=== PATIENT | male | born 1960 | race American Indian/Alaskan Native ===

== ENCOUNTER 2020-06-26 11:24 | Emergency (ER) | payer MEDICAID ==
[2020-06-26 11:44] VITALS: BP 127/80
[2020-06-26 13:10] LABS: Basophils # (Auto) 0.1 K/mm3 (0.0-0.1); Basophils % (Auto) 1.2 % (0.0-1.8); Eosinophils % (Auto) 0.5 % (0.0-4.3); Hematocrit 44.9 % (35.5-45.6); Hemoglobin 14.4 gm/dl (11.8-15.2); Lymphocytes # (Auto) 1.5 K/mm3 (1.2-5.4); Lymphocytes % (Auto) 18.1 % (13.4-35.0); Mean Corpuscular HGB Conc 32 % (32-34); Mean Corpuscular Volume 96 fl (84-94); Monocytes # (Auto) 0.7 K/mm3 (0.0-0.8); Monocytes % (Auto) 9.2 % (0.0-7.3); Platelet Count 134 K/mm3 (140-440); Red Cell Distribution Width 17.2 % (13.2-15.2)
--- NOTE | 2020-06-26 13:13 | XRay Report ---
CHEST 2 VIEWS, 06/26/2020 11:53 AM INDICATION: Shortness of breath COMPARISON: Chest radiograph, 06/21/2020 FINDINGS: Support devices: None. Heart: There is stable moderate enlargement of the cardiac silhouette. Lungs/pleura: Faint opacity within the right perihilar region has improved but not completely cleared . There are small stable bilateral pleural effusions. Additional findings: No significant acute abnormality. IMPRESSION: 1. Interval improvement of perihilar opacity which may suggest resolving pneumonia or edema. 2. Stable small bilateral pleural effusions. Signer Name: Hilda Rae MD Signed: 06/26/2020 1:09 PM Workstation Name: [id number]
[2020-06-26 13:26] LABS: Albumin 3.9 g/dL (3.9-5); Calcium 8.6 mg/dL (8.4-10.2)
--- NOTE | 2020-06-26 13:49 | Event Note ---
ED Screening Note Date of service: 06/26/20 Time: 13:47 ED Screening Note: 60-year-old male with a past medical history of hypertension, CHF, and chronic renal disease presents to the ER today complaining of shortness of breath. Patient was just discharged from the hospital yesterday. His discharge diagnoses were: Acute on chronic systolic CHF, now compensated, need further outpatient follow- up Dysphagia, resolved, GI recommended outpatient follow-up Pneumonia, likely aspiration, treated with antibiotics MU on CKD, due to vasomotor nephropathy, improved Hyperkalemia, treated, need to repeat BMP in 1 week Metabolic acidosis, due to renal failure, continue sodium bicarbonate p.o. twice daily Hypertension, adjusted BP meds Patient states that he felt good at the time of discharge yesterday, but when he got home last night started with shortness of breath, states that he could not sleep due to shortness of breath and he still continues to have substernal chest discomfort and a dry cough. This initial assessment/diagnostic orders/clinical plan/treatment(s) is/are subject to change based on patients health status, clinical progression and re- assessment by fellow clinical providers in the ED. Further treatment and workup at subsequent clinical providers discretion. Patient/guardian urged not to elope from the ED as their condition may be serious if not clinically assessed and managed. Initial orders include: Cardiac w/u
== END 2020-06-26 15:50 | disposition left against medical advice (07) ==
LOC: ED 11:24
DX: R06.02 Shortness of breath (principal); Z53.21 Procedure and treatment not carried out due to patient leaving prior to being seen by health care provider
CPT/HCPCS: 36415; 71046; 80053; 83880; 84484; 85025

== ENCOUNTER 2020-06-28 04:57 | Emergency (ER) | payer MEDICAID ==
--- NOTE | 2020-06-28 05:25 | Event Note ---
ED Screening Note Date of service: 06/28/20 Time: 05:22 ED Screening Note: Patient is a 60-year-old -Chinese male with a history of CHF, cardiomyopathy, hypertension, chronic kidney disease who presents to the ED with acute onset persistent shortness of breath with exertion for the last 1 week, worse in the last 2 days. Patient states that he was recently discharged from the hospital after being admitted and extensive work-up and that he was given a prescriptions including water pills and that these medications have not helped his shortness of breath. Patient states that his symptoms are worse especially with exertion and when he lays down and therefore has not been able to sleep because of worsening shortness of breath. Patient denies chest pain, dizziness, syncope, fever, chills, abdominal pain, nausea and vomiting, diarrhea, headache or hemoptysis and cough. This initial assessment/diagnostic orders/clinical plan/treatment(s) is/are subject to change based on patients health status, clinical progression and re- assessment by fellow clinical providers in the ED. Further treatment and workup at subsequent clinical providers discretion. Patient/guardian urged not to elope from the ED as their condition may be serious if not clinically assessed and managed. Initial orders include: CBC, CMP, EKG, troponin, BNP, CXR
--- NOTE | 2020-06-28 06:01 | XRay Report ---
CHEST 1 VIEW 06/28/2020 4:55 AM INDICATION / CLINICAL INFORMATION: Shortness of breath. COMPARISON: 06/27/2020 FINDINGS: SUPPORT DEVICES: None. HEART / MEDIASTINUM: Stable mild cardiomegaly. LUNGS / PLEURA: Stable tiny bilateral pleural effusions. No pneumothorax. ADDITIONAL FINDINGS: No significant additional findings. IMPRESSION: 1. No acute findings. Signer Name: Usman Redd MD Signed: 06/28/2020 5:57 AM Workstation Name: [id number]
[2020-06-28 06:02] LABS: Basophils # (Auto) 0.1 K/mm3 (0.0-0.1); Basophils % (Auto) 0.8 % (0.0-1.8); Eosinophils % (Auto) 0.2 % (0.0-4.3); Hematocrit 40.4 % (35.5-45.6); Hemoglobin 13.2 gm/dl (11.8-15.2); Lymphocytes # (Auto) 1.5 K/mm3 (1.2-5.4); Lymphocytes % (Auto) 17.3 % (13.4-35.0); Mean Corpuscular HGB Conc 33 % (32-34); Mean Corpuscular Volume 94 fl (84-94); Monocytes # (Auto) 1.3 K/mm3 (0.0-0.8); Monocytes % (Auto) 14.9 % (0.0-7.3); Platelet Count 135 K/mm3 (140-440); Red Blood Count 4.28 M/mm3 (3.65-5.03)
[2020-06-28 06:23] LABS: Albumin 3.7 g/dL (3.9-5); Calcium 8.6 mg/dL (8.4-10.2)
[2020-06-28] MEDS ORDERED: MORPHINE 4 MG/1 ML INJ IV ONE (06:57)
[2020-06-28] MEDS ORDERED: ONDANSETRON 4 MG/2 ML INJ IV ONE (06:57)
--- NOTE | 2020-06-28 07:02 | Emergency Department Report ---
ED General Adult HPI - General Chief complaint: Dyspnea/Respdistress Stated complaint: SOB/LEFT ARM SWOLLEN Time Seen by Provider: 06/28/20 06:51 Source: patient Mode of arrival: Ambulatory Limitations: No Limitations - History of Present Illness Initial comments: Patient is 60 years old male with history of hypertension and congestive heart failure. Patient presented to the ER with multiple complaints. Patient stated that his shortness of breath is not getting better. Patient stated that he is taking his Lasix as he supposed to however he denied any orthopnea or increasing in shortness of breath. Patient also complaining of lower abdominal pain, described as crampy and fullness sometimes. Patient stated that his bowel movement is not the same since he took a barium swallow recently. Patient denied any fever or chills. No chest pain, cough, runny nose or congestion. - Related Data Previous Rx's Medication Instructions Recorded Last Taken Type Aspirin [Aspirin BABY CHEW TAB] 81 mg PO QDAY #30 tab.chew 05/01/20 Unknown Rx Pantoprazole Sodium 40 mg PO DAILY #30 tablet. 05/01/20 Unknown Rx Sodium Bicarbonate 650 mg PO BID #30 tablet 05/01/20 Unknown Rx amLODIPine 10 mg PO QDAY #30 tablet 05/01/20 Unknown Rx ISOSORBIDE MONOnitrate [Imdur ER] 30 mg PO QDAY #30 tablet 06/24/20 Unknown Rx Metoprolol [Lopressor TAB] 50 mg PO BID #60 tablet 06/24/20 Unknown Rx hydrALAZINE [Apresoline TAB] 50 mg PO Q8HR #90 tablet 06/24/20 Unknown Rx Albuterol Mdi (or & Nicu Only) 2 puff IH QID PRN #8.5 gram 06/27/20 Unknown Rx [ProAir HFA Inhaler] Omeprazole 20 mg PO QDAY #30 tab.rap. 06/27/20 Unknown Rx Allergies Allergy/AdvReac Type Severity Reaction Status Date / Time No Known Allergies Allergy Unverified 04/28/20 22:14 ED Review of Systems ROS: Stated complaint: SOB/LEFT ARM SWOLLEN Other details as noted in HPI Comment: All other systems reviewed and negative Constitutional: denies: chills, fever Respiratory: shortness of breath, SOB with exertion, SOB at rest. denies: cough, orthopnea, wheezing Cardiovascular: denies: chest pain, palpitations Gastrointestinal: abdominal pain, nausea, constipation. denies: vomiting, diarrhea, hematemesis, melena, hematochezia Musculoskeletal: denies: back pain Neurological: denies: headache, weakness, numbness, paresthesias, confusion, abnormal gait ED Past Medical Hx - Past Medical History Hx Hypertension: Yes Hx Heart Attack/AMI: No Hx Congestive Heart Failure: Yes Hx Diabetes: No Hx Deep Vein Thrombosis: No Hx Pulmonary Embolism: No Hx Liver Disease: No Hx Renal Disease: No Hx Sickle Cell Disease: No Hx Seizures: No Hx Kidney Stones: No Hx Asthma: No Hx COPD: No Hx Tuberculosis: No Hx Dementia: No Hx HIV: No Additional medical history: Pneumonia - Surgical History Hx Coronary Stent: No Hx Pacemaker: No Hx Internal Defibrillator: No - Social History Smoking Status: Unknown if ever smoked Substance Use Type: None - Medications Home Medications: Home Medications Medication Instructions Recorded Confirmed Last Taken Type Aspirin [Aspirin BABY CHEW TAB] 81 mg PO QDAY #30 tab.chew 05/01/20 06/22/20 Unknown Rx Pantoprazole Sodium 40 mg PO DAILY #30 tablet. 05/01/20 06/22/20 Unknown Rx Sodium Bicarbonate 650 mg PO BID #30 tablet 05/01/20 06/22/20 Unknown Rx amLODIPine 10 mg PO QDAY #30 tablet 05/01/20 06/22/20 Unknown Rx ISOSORBIDE MONOnitrate [Imdur ER] 30 mg PO QDAY #30 tablet 06/24/20 Unknown Rx Metoprolol [Lopressor TAB] 50 mg PO BID #60 tablet 06/24/20 Unknown Rx hydrALAZINE [Apresoline TAB] 50 mg PO Q8HR #90 tablet 06/24/20 Unknown Rx Albuterol Mdi (or & Nicu Only) 2 puff IH QID PRN #8.5 gram 06/27/20 Unknown Rx [ProAir HFA Inhaler] Omeprazole 20 mg PO QDAY #30 tab.rap. 06/27/20 Unknown Rx ED Physical Exam - General Limitations: No Limitations General appearance: alert, in no apparent distress - Head Head exam: Present: atraumatic, normocephalic, normal inspection - Eye Eye exam: Present: normal appearance, PERRL - ENT ENT exam: Present: normal exam, normal orophraynx, mucous membranes moist - Neck Neck exam: Present: normal inspection, full ROM. Absent: tenderness, meningismu s - Respiratory Respiratory exam: Present: normal lung sounds bilaterally. Absent: respiratory distress, wheezes, rales, rhonchi, chest wall tenderness, accessory muscle use, decreased breath sounds, prolonged expiratory - Cardiovascular Cardiovascular Exam: Present: regular rate, normal rhythm, normal heart sounds - GI/Abdominal GI/Abdominal exam: Present: soft, normal bowel sounds. Absent: distended, tenderness, guarding, rebound, rigid, organomegaly, mass, bruit, pulsatile mass, hernia - Extremities Exam Extremities exam: Present: normal inspection, full ROM, normal capillary refill. Absent: tenderness, pedal edema, calf tenderness - Back Exam Back exam: Present: normal inspection, full ROM. Absent: CVA tenderness (R), CVA tenderness (L) - Neurological Exam Neurological exam: Present: alert, oriented X3, CN II-XII intact, normal gait, reflexes normal. Absent: motor sensory deficit - Psychiatric Psychiatric exam: Present: normal mood - Skin Skin exam: Present: warm, intact, normal color ED Course Vital Signs 06/28/20 06/28/20 06/28/20 05:10 05:27 07:14 Temperature 98.7 F Pulse Rate 67 73 Respiratory 16 18 Rate Blood Pressure 138/86 115/87 [Left] O2 Sat by Pulse 98 100 Oximetry 06/28/20 07:58 Temperature Pulse Rate 63 Respiratory 18 Rate Blood Pressure 129/84 [Left] O2 Sat by Pulse 93 Oximetry ED Medical Decision Making - Lab Data Result diagrams: 06/28/20 05:28 06/28/20 05:28 - EKG Data -: EKG Interpreted by Ut EKG shows normal: sinus rhythm Rate: normal - EKG Data Interpretation: no acute changes - Radiology Data Radiology results: report reviewed - Medical Decision Making Patient is 60 years old male with history of hypertension and congestive heart failure. Patient presented to the ER with multiple complaints. Patient stated that his shortness of breath is not getting better. Patient stated that he is taking his Lasix as he supposed to however he denied any orthopnea or increasing in shortness of breath. Patient also complaining of lower abdominal pain, described as crampy and fullness sometimes. Patient stated that his bowel movement is not the same since he took a barium swallow recently. Patient denied any fever or chills. No chest pain, cough, runny nose or congestion. Patient remained stable in the ER with a stable vital sign and oxygen saturation of 100%. EKG is unremarkable. Labs reviewed and is unremarkable except for elevated BNP which is stable compared to previous visit. Chest x-ray showed no evidence of pulmonary edema. Patient is not in acute congestive heart failure. Patient symptoms is mainly abdominal cramping and having difficulty having a bowel movement also. Patient given prescription for lactulose and Colace and advised to follow-up with his primary doctor in the next 2 to 3 days and to return to the ER if he develop any new symptoms. Critical care attestation.: If time is entered above; I have spent that time in minutes in the direct care of this critically ill patient, excluding procedure time. ED Disposition Clinical Impression: Shortness of breath, Abdominal pain, Constipation Disposition: - TO HOME OR SELFCARE Is pt being admited?: No Condition: Stable Instructions: Shortness of Breath, Adult, [id number], Chronic Constipation, Abdominal Pain, Adult, [id number] Referrals: PRIMARY CARE, [Primary Care Provider] - 3-5 Days
--- NOTE | 2020-06-28 08:12 | XRay Report ---
ABDOMEN 1 VIEW(S) INDICATION / CLINICAL INFORMATION: abdominal pain. COMPARISON: Yesterday FINDINGS: TUBES / LINES: None. BOWEL GAS PATTERN: No significant abnormality. FREE AIR / EXTRALUMINAL GAS: None seen. ADDITIONAL FINDINGS: No significant additional findings. IMPRESSION: No significant abnormality. Signer Name: Brent Graves Jr, MD Signed: 06/28/2020 8:08 AM Workstation Name: [id number]
[2020-06-28 09:09] VITALS: BP 128/83
[2020-06-28 09:20] LABS: Bilirubin,Urine NEG (Negative); Blood,Urine NEG (Negative); Color,Urine Amber (Yellow); Urobilinogen,Urine < 2.0 mg/dL (<2.0)
== END 2020-06-28 09:09 | disposition home or self-care (01) ==
LOC: ED 04:57
DX: R06.02 Shortness of breath (principal); K59.00 Constipation, unspecified; I10 Essential (primary) hypertension; Z79.82 Long term (current) use of aspirin; Z79.899 Other long term (current) drug therapy
CPT/HCPCS: 36415; 71045; 74018; 80053; 81001; 83690; 83880; 84484; 85025; 93005; 96374; 96375; J2270; J2405

== ENCOUNTER 2020-08-28 08:15 | Inpatient (IN) | payer MEDICAID ==
--- NOTE | 2020-08-28 09:19 | Emergency Department Report ---
ED Chest Pain HPI - General Chief Complaint: Chest Pain Stated Complaint: CHEST PAIN/BLOOD CLOTS/HBP Time Seen by Provider: 08/28/20 09:10 Source: patient Mode of arrival: Ambulatory Limitations: No Limitations - History of Present Illness Initial Comments: This is a 60-year-old man who states he was discharged from [facility] yesterday. Last night he states he could not sleep. He states he lives alone. He complains of bilateral leg pain, back pain and swelling of his stomach. Initially he pointed to his periumbilical area as where he was hurting stating this was the location of his chest pain. Then on examination he said he was tender in the right upper quadrant. Apparently the patient does have chronic back pain. He relates his leg pain to a diagnosis of DVT at [facility]. He recognizes the name of Xarelto as the medication that he is taking for that. He states that he did begin it upon discharge and that he has it in his back. The patient tells me that he does not have a primary care provider, pulmonolog ist or charrer. He has a complex medical history of restrictive cardiomyopathy with admission here in the past for pneumonia as well as CHF. He has a history of chronic renal insufficiency and hyperkalemia. Last hospitalization end of May, here: Hospitalization Reason for admission: chf Condition: Stable Hospital course: This patient is a 60 year old Male with a significant hx of restrictive cardiomyopathy, Heart Failure with reduced Ejection Fraction, Chronic Kidney Disease, HTN, Recurrent PNA presented to PSYCHIATRIC ER with complaint of SOB x 3 days, dysphagia with "bloating and midepigastric pain" with ingestion. He was previously admitted in 03/2020-04/2020 to PSYCHIATRIC for PNA. He is Covid negative x 2. Chest x-ray: Diffuse opacities in the right lung, new since previous examination. Patient was placed on empiric antibiotics, ID was consulted. 2D echo showed EF of 20 to 25%. Cardiology was consulted. Patient went through a barium swallow study which was recommended by GI for his dysphagia and exam was unremarkable. Patient was tolerating GI soft diet. Patient was recommended to follow-up outpatient. DDimer is noted to be chronically elevated - V/Q scan done 04/29/2020 was low prob for PE. GI and cardiology recommended outpatient follow-up. No ACEI/ARB recommended at this time for renal insufficiency and hyperkalemia. Patient was treated optimally for hyperkalemia, and potassium level was followed. His creatinine level was stable. Patient recommended to follow-up with Dr. Garrett in 1 week. Patient also recommended to have a repeat BMP and follow-up with nephrology. ID recommended no antibiotic necessary on discharge as patient's procalcitonin level was normal. Patient also recommended to have follow-up with lvn lpn at outpatient for pulmonary hypertension. Patient was aggressively counseled for compliance he verbalized understanding. Patient was then discharged home in stable condition with outpatient follow-up. Patient's initial discharge was held due to elevated hyperkalemia Kayexalate was given. Awaiting report this morning. RENEA and arms held due to hyperkalemia. This morning patient tells me that he is ready to go. His medical condition and treatment has been discussed with him in detail he verbalized understanding. Discharge diagnosis: Acute on chronic systolic CHF, now compensated, need further outpatient follow- up Dysphagia, resolved, GI recommended outpatient follow-up Pneumonia, likely aspiration, treated with antibiotics MU on CKD, due to vasomotor nephropathy, improved Hyperkalemia, treated, need to repeat BMP in 1 week Metabolic acidosis, due to renal failure, continue sodium bicarbonate p.o. twice daily Hypertension, adjusted BP meds No evidence of protein calorie malnutrition. MD Complaint: chest pain (Uncertain if chest pain or abdominal pain) Onset/Timin (Days ago) -: Gradual Onset: during rest Pain Location: epigastric Pain Radiation: none Severity: moderate Quality: aching Consistency: intermittent Improves With: nothing Worsens With: other (Question palpation) Context: other (Just discharged) re: nausea, other (States has diarrhea) Other Symptoms: other (States abdomen is swelling) Treatments Prior to Arrival: other (Oral anticoagulant) Aspirin use within the Past 7 Days: (1) Yes (Probably) - Related Data Previous Rx's Medication Instructions Recorded Last Taken Type Aspirin [Aspirin BABY CHEW TAB] 81 mg PO QDAY #30 tab.chew 05/01/20 Unknown Rx Pantoprazole Sodium 40 mg PO DAILY #30 tablet. 05/01/20 Unknown Rx Sodium Bicarbonate 650 mg PO BID #30 tablet 05/01/20 Unknown Rx amLODIPine 10 mg PO QDAY #30 tablet 05/01/20 Unknown Rx ISOSORBIDE MONOnitrate [Imdur ER] 30 mg PO QDAY #30 tablet 06/24/20 Unknown Rx Metoprolol [Lopressor TAB] 50 mg PO BID #60 tablet 06/24/20 Unknown Rx hydrALAZINE [Apresoline TAB] 50 mg PO Q8HR #90 tablet 06/24/20 Unknown Rx Albuterol Mdi (or & Nicu Only) 2 puff IH QID PRN #8.5 gram 06/27/20 Unknown Rx [ProAir HFA Inhaler] Omeprazole 20 mg PO QDAY #30 tab.rap. 06/27/20 Unknown Rx Docusate Sodium [Colace] 100 mg PO BID #30 capsule 06/28/20 Unknown Rx Lactulose 10 gm PO DAILY PRN #60 ml 06/28/20 Unknown Rx Allergies Allergy/AdvReac Type Severity Reaction Status Date / Time No Known Allergies Allergy Unverified 04/28/20 22:14 Heart Score - HEART Score History: Slightly suspicious EKG: Non-specific Age: 45-65 Risk factors: > 3 risk factors or hx of atherosclerotic disease Troponin: 1-3x normal limit HEART Score: 5 - EKG Read Time Time EKG Completed: 08:25 EKG Read Time: 08:25 ED Review of Systems ROS: Stated complaint: CHEST PAIN/BLOOD CLOTS/HBP Other details as noted in HPI ED Past Medical Hx - Past Medical History Previous Medical History?: Yes Hx Hypertension: Yes Hx Heart Attack/AMI: No Hx Congestive Heart Failure: Yes Hx Diabetes: No Hx Deep Vein Thrombosis: No Hx Pulmonary Embolism: No Hx Liver Disease: No Hx Renal Disease: No Hx Sickle Cell Disease: No Hx Seizures: No Hx Kidney Stones: No Hx Asthma: No Hx COPD: No Hx Tuberculosis: No Hx Dementia: No Hx HIV: No Additional medical history: Pneumonia - Surgical History Hx Coronary Stent: No Hx Pacemaker: No Hx Internal Defibrillator: No - Social History Smoking Status: Never Smoker - Medications Home Medications: Home Medications Medication Instructions Recorded Confirmed Last Taken Type Aspirin [Aspirin BABY CHEW TAB] 81 mg PO QDAY #30 tab.chew 05/01/20 06/22/20 Unknown Rx Pantoprazole Sodium 40 mg PO DAILY #30 tablet. 05/01/20 06/22/20 Unknown Rx Sodium Bicarbonate 650 mg PO BID #30 tablet 05/01/20 06/22/20 Unknown Rx amLODIPine 10 mg PO QDAY #30 tablet 05/01/20 06/22/20 Unknown Rx ISOSORBIDE MONOnitrate [Imdur ER] 30 mg PO QDAY #30 tablet 06/24/20 Unknown Rx Metoprolol [Lopressor TAB] 50 mg PO BID #60 tablet 06/24/20 Unknown Rx hydrALAZINE [Apresoline TAB] 50 mg PO Q8HR #90 tablet 06/24/20 Unknown Rx Albuterol Mdi (or & Nicu Only) 2 puff IH QID PRN #8.5 gram 06/27/20 Unknown Rx [ProAir HFA Inhaler] Omeprazole 20 mg PO QDAY #30 tab.rap.dr 06/27/20 Unknown Rx Docusate Sodium [Colace] 100 mg PO BID #30 capsule 06/28/20 Unknown Rx Lactulose 10 gm PO DAILY PRN #60 ml 06/28/20 Unknown Rx ED Physical Exam - General Limitations: Physical Limitation General appearance: alert, in no apparent distress - Head Head exam: Present: atraumatic, normocephalic - Eye Eye exam: Present: normal appearance. Absent: scleral icterus - ENT ENT exam: Present: mucous membranes moist - Neck Neck exam: Present: normal inspection. Absent: tenderness, meningismus - Respiratory Respiratory exam: Present: normal lung sounds bilaterally. Absent: respiratory distress - Cardiovascular Cardiovascular Exam: Present: regular rate, normal rhythm, systolic murmur, S4. Absent: diastolic murmur, rubs, gallop - GI/Abdominal GI/Abdominal exam: Present: soft, distended (Perhaps mildly), tenderness (More in the right upper quadrant), normal bowel sounds. Absent: guarding, rebound, rigid - Rectal Rectal exam: Present: deferred - Extremities Exam Extremities exam: Present: other (Fullness of the right calf is noted.) - Back Exam Back exam: Present: normal inspection - Neurological Exam Neurological exam: Present: alert, oriented X3, CN II-XII intact. Absent: motor sensory deficit - Psychiatric Psychiatric exam: Present: normal affect, normal mood - Skin Skin exam: Present: warm, dry, intact, normal color. Absent: rash ED Course Vital Signs 08/28/20 08/28/20 08/28/20 08:21 08:31 08:45 Temperature 97.4 F L Pulse Rate 57 L 75 72 Respiratory 20 21 Rate Blood Pressure Blood Pressure 138/95 [Right] O2 Sat by Pulse 85 100 Oximetry 08/28/20 09:31 Temperature Pulse Rate 73 Respiratory 17 Rate Blood Pressure 145/95 Blood Pressure [Right] O2 Sat by Pulse 100 Oximetry - Reevaluation(s) Reevaluation #1: I obtained the patient's history and physical and discharge summary from 2 recent admissions to [facility]. Apparently he was admitted on 08/19/2020 and found to have DVT. He left the hospital without anticoagulation. He returned to the hospital on 08/25/2020. He was begun on Eliquis and discharged on the . He was found to have urine toxicology positive for cocaine. 08/28/20 11:12 Reevaluation #2: On reassessment patient was complaining of chest pain. He was given morphine and Zofran. His pulse oximetry was again 100% on room air when last checked. He is hemodynamically stable. Patient CT showed some increasing ascites which I believe is most likely secondary to somewhat decompensated cardiomyopathy which is quite chronic. Noncontrasted CT of the chest showed no acutely addressable abnormality. Patient's troponin is elevated. He did produce a bottle of Eliquis stating that he took his last dose this morning. Discussed the case with Dr. Robert the hospitalist. He did not want me to order a VQ scan at this point. I will leave further diagnostic work-up of the patient's chest pain to admitting physician With consultation as per their discretion. The current plan is to admit the patient for observation. 08/28/20 12:41 AJ score - Aj Score Age > 65: (0) No Aspirin use within the Past 7 Days: (1) Yes 3 or more CAD Risk Factors: (1) Yes 2 or more Angina events in past 24 hrs: (0) No Known CAD with more than 50% Stenosis: (0) No ST Deviation Greater than 0.5mm: (0) No ED Medical Decision Making - Lab Data Result diagrams: 08/28/20 09:38 08/28/20 09:38 Laboratory Results - last 24 hr 08/28/20 09:38 WBC 7.6 RBC 4.30 Hgb 11.6 L Hct 36.4 MCV 85 MCH 27 L MCHC 32 RDW 18.8 H Plt Count 160 Lymph % (Auto) 21.0 [place] % (Auto) 12.7 H Eos % (Auto) 1.4 Baso % (Auto) 1.3 Lymph # (Auto) 1.6 [place] # (Auto) 1.0 H Eos # (Auto) 0.1 Baso # (Auto) 0.1 Seg Neutrophils % 63.6 Seg Neutrophils # 4.8 Laboratory Results - last 24 hr 08/28/20 08/28/20 08/28/20 09:38 09:38 09:38 WBC 7.6 RBC 4.30 Hgb 11.6 L Hct 36.4 MCV 85 MCH 27 L MCHC 32 RDW 18.8 H Plt Count 160 Lymph % (Auto) 21.0 [place] % (Auto) 12.7 H Eos % (Auto) 1.4 Baso % (Auto) 1.3 Lymph # (Auto) 1.6 [place] # (Auto) 1.0 H Eos # (Auto) 0.1 Baso # (Auto) 0.1 Seg Neutrophils % 63.6 Seg Neutrophils # 4.8 PT 19.7 H INR 1.67 H APTT 31.6 Sodium 133 L Potassium 5.0 Chloride 100.5 Carbon Dioxide 22 Anion Gap 16 BUN 23 H Creatinine 1.8 H Estimated GFR 47 BUN/Creatinine Ratio 13 Glucose 102 H Calcium 8.5 Magnesium Total Bilirubin Direct Bilirubin Indirect Bilirubin AST ALT Alkaline Phosphatase Total Creatine Kinase 52 L CK-MB (CK-2) 1.3 CK-MB (CK-2) Rel Index 2.5 Troponin T 0.064 H NT-Pro-B Natriuret Pep Total Protein Albumin Albumin/Globulin Ratio Triglycerides 73 Cholesterol 144 LDL Cholesterol Direct 69 HDL Cholesterol 52 Cholesterol/HDL Ratio 2.76 08/28/20 09:38 WBC RBC Hgb Hct MCV MCH MCHC RDW Plt Count Lymph % (Auto) [place] % (Auto) Eos % (Auto) Baso % (Auto) Lymph # (Auto) [place] # (Auto) Eos # (Auto) Baso # (Auto) Seg Neutrophils % Seg Neutrophils # PT INR APTT Sodium Potassium Chloride Carbon Dioxide Anion Gap BUN Creatinine Estimated GFR BUN/Creatinine Ratio Glucose Calcium Magnesium 2.00 Total Bilirubin 0.60 Direct Bilirubin 0.3 H Indirect Bilirubin 0.3 AST 45 H ALT 43 Alkaline Phosphatase 120 Total Creatine Kinase CK-MB (CK-2) CK-MB (CK-2) Rel Index Troponin T NT-Pro-B Natriuret Pep 6256 H Total Protein 6.2 L Albumin 3.2 L Albumin/Globulin Ratio 1.1 Triglycerides Cholesterol LDL Cholesterol Direct HDL Cholesterol Cholesterol/HDL Ratio - Radiology Data CT CHEST: Thoracic aorta is normal in caliber. Heart is moderately enlarged. No typical pericardial effusion; however, there is fluid density in the mediastinum at the level of the ascending aorta and main pulmonary artery. There is also a small right pleural effusion, unchanged. No adenopathy. Minimal atelectasis in the right base, associated with the effusion, but no significant parenchymal disease. CT ABDOMEN: Moderate ascites, with diffuse mesenteric edema. Liver, gallbladder, spleen, pancreas, kidneys and adrenals are negative. Abdominal aorta is normal in size. No significant adenopathy. CT PELVIS: Urinary bladder demonstrates higher attenuation, although there is no record of IV contrast administration. Mild sigmoid diverticulosis but no diverticulitis. Again, there is moderate ascites and diffuse mesenteric edema. IMPRESSION: 1. Cardiomegaly, with diffuse mesenteric edema, ascites and fluid in the superior mediastinum. Exact etiology is uncertain, but this could be related to congestive failure. Mild ascites and mesenteric edema were demonstrated on the exam in March, but these findings have progressed. Critical care attestation.: If time is entered above; I have spent that time in minutes in the direct care of this critically ill patient, excluding procedure time. ED Disposition Clinical Impression: Elevated troponin, History of cocaine abuse Chest pain Qualifiers: Chest pain type: unspecified Qualified Code(s): R07.9 - Chest pain, unspecified Congestive heart failure Qualifiers: Heart failure type: combined systolic and diastolic Heart failure chronicity: acute on chronic Qualified Code(s): I50.43 - Acute on chronic combined systolic (congestive) and diastolic (congestive) heart failure Cardiomyopathy Qualifiers: Cardiomyopathy type: other restrictive Qualified Code(s): I42.5 - Other restrictive cardiomyopathy Deep venous thrombosis Qualifiers: DVT location: lower extremity Affected thrombotic vein of extremity: unspecified vein of extremity Chronicity: acute Laterality: bilateral Qualified Code(s): I82.403 - Acute embolism and thrombosis of unspecified deep veins of lower extremity, bilateral Disposition: OP ADMIT IP TO THIS HOSP Is pt being admited?: Yes Does the pt Need Aspirin: Yes Condition: Stable Instructions: Nonspecific Chest Pain, Adult Referrals: [facility] [Other] - 3-5 Days Time of Disposition: 12:46
[2020-08-28] MEDS ORDERED: ASPIRIN 325 MG TAB PO ONE (09:30)
[2020-08-28 10:00] LABS: Basophils # (Auto) 0.1 K/mm3 (0.0-0.1); Basophils % (Auto) 1.3 % (0.0-1.8); Eosinophils # (Auto) 0.1 K/mm3 (0.0-0.4); Eosinophils % (Auto) 1.4 % (0.0-4.3); Hematocrit 36.4 % (35.5-45.6); Hemoglobin 11.6 gm/dl (11.8-15.2); Lymphocytes # (Auto) 1.6 K/mm3 (1.2-5.4); Mean Corpuscular HGB Conc 32 % (32-34); Mean Corpuscular Volume 85 fl (84-94); Monocytes % (Auto) 12.7 % (0.0-7.3); Platelet Count 160 K/mm3 (140-440); Red Cell Distribution Width 18.8 % (13.2-15.2)
[2020-08-28 10:17] LABS: Creatine Kinase MB 1.3 ng/mL (0.0-4.0)
[2020-08-28 10:18] LABS: Calcium 8.5 mg/dL (8.4-10.2)
[2020-08-28 10:19] LABS: Albumin 3.2 g/dL (3.9-5); Bilirubin,Direct 0.3 mg/dL (0-0.2)
[2020-08-28 10:30] LABS: Chol/HDL Ratio 2.76 %
[2020-08-28 10:39] LABS: INR 1.67 (0.87-1.13)
[2020-08-28 10:40] LABS: Partial Thromboplastin Time 31.6 Sec. (24.2-36.6)
--- NOTE | 2020-08-28 12:01 | Cat Scan Report ---
CT chest wo con, CT abdomen pelvis wo con INDICATION: Patient complains of chest pain.. TECHNIQUE: All CT scans at this location are performed using CT dose reduction for ALARA by means of automated e xposure control. COMPARISON: CT abdomen dated 04/29/2020 FINDINGS: CT CHEST: Thoracic aorta is normal in caliber. Heart is moderately enlarged. No typical pericardial effusion; h owever, there is fluid density in the mediastinum at the level of the ascending aorta and main pulmon neli artery. There is also a small right pleural effusion, unchanged. No adenopathy. Minimal atelectasis in the right base, associated with the effusion, but no significant parenchymal d isease. CT ABDOMEN: Moderate ascites, with diffuse mesenteric edema. Liver, gallbladder, spleen, pancreas, kidneys and ad renals are negative. Abdominal aorta is normal in size. No significant adenopathy. CT PELVIS: Urinary bladder demonstrates higher attenuation, although there is no record of IV contrast administr ation. Mild sigmoid diverticulosis but no diverticulitis. Again, there is moderate ascites and diffus e mesenteric edema. IMPRESSION: 1. Cardiomegaly, with diffuse mesenteric edema, ascites and fluid in the superior mediastinum. Exact etiology is uncertain, but this could be related to congestive failure. Mild ascites and mesenteric e yolanda were demonstrated on the exam in March, but these findings have progressed. Signer Name: Wilfrid Olivera MD Signed: 08/28/2020 11:56 AM Workstation Name: [id number]
[2020-08-28] MEDS ORDERED: MORPHINE 2 MG/1 ML INJ IV ONE (12:35)
[2020-08-28] MEDS ORDERED: ONDANSETRON 4 MG/2 ML INJ IV ONE (12:35)
--- NOTE | 2020-08-28 14:50 | History and Physical Report ---
History of Present Illness Chief complaint: I am hurting right here History of present illness: 60 YO Male with CHF (EF 20%), HTN, GERD, Malnutrition, CKD, Diastolic CHF, Restrictive Cardiomyopathy, DVT currently on therapeutic anticoagulation with Xarelto presents to ED for evaluation. Patient reports "my chest hurts". Patient states that he has experienced pain in his chest over the past 1 day with persistent symptoms over the same timeframe. Patient reports the pain prevented him from going to sleep last night. Patient reports that he has chest pain but of 1 evaluation and interview the patient localizes the periumbilical region as the site of his pain. Patient states that pain is 6/10, constant, without exacerbating or alleviating factors, nonradiating. Patient transported to [facility] via private vehicle for further care and evaluation of the aforementioned symptoms. The patient was seen and evaluated in emergency department. Lab and imaging studies reviewed. The patient was found to have atypical chest pain which is referred abdominal pain, Diastolic CHF. The patient was placed in observation status and admitted to Telemetry for further evaluation. Pt denies fever, chills, CP, Palpitations, NVD, Trauma, productive cough, recent ill contacts, or known exposure to COVID 19. Prior admission on 06/22/20 reviewed. All medication listed at time of admission has been reconciled. Advanced care p shira conducted in ED. Past History Past Medical History: DVT, GERD, heart failure, hypertension Past Surgical History: No surgical history, Other (reviewed) Social history: single. denies: smoking, alcohol abuse, prescription drug abuse Family history: hypertension Medications and Allergies Allergies Allergy/AdvReac Type Severity Reaction Status Date / Time No Known Allergies Allergy Unverified 04/28/20 22:14 Home Medications Medication Instructions Recorded Confirmed Last Taken Type Aspirin [Aspirin BABY CHEW TAB] 81 mg PO QDAY #30 tab.chew 05/01/20 08/28/20 Unknown Rx Pantoprazole Sodium 40 mg PO DAILY #30 tablet. 05/01/20 08/28/20 Unknown Rx Sodium Bicarbonate 650 mg PO BID #30 tablet 05/01/20 08/28/20 Unknown Rx amLODIPine 10 mg PO QDAY #30 tablet 05/01/20 08/28/20 Unknown Rx ISOSORBIDE MONOnitrate [Imdur ER] 30 mg PO QDAY #30 tablet 06/24/20 08/28/20 Unknown Rx Metoprolol [Lopressor TAB] 50 mg PO BID #60 tablet 06/24/20 08/28/20 Unknown Rx hydrALAZINE [Apresoline TAB] 50 mg PO Q8HR #90 tablet 06/24/20 08/28/20 Unknown Rx Albuterol Mdi (or & Nicu Only) 2 puff IH QID PRN #8.5 gram 06/27/20 08/28/20 Unknown Rx [ProAir HFA Inhaler] Omeprazole 20 mg PO QDAY #30 tab. 06/27/20 08/28/20 Unknown Rx Docusate Sodium [Colace] 100 mg PO BID #30 capsule 06/28/20 08/28/20 Unknown Rx Lactulose 10 gm PO DAILY PRN #60 ml 06/28/20 08/28/20 Unknown Rx Review of Systems Constitutional: no weight loss, no weight gain, no fever, no chills Ears, nose, mouth and throat: no ear pain, no ear discharge, no tinnitis, no decreased hearing, no nose pain, no nasal congestion, no sinus pressure Cardiovascular: no chest pain, no orthopnea, no palpitations, no rapid/irregular heart beat Respiratory: no cough, no cough with sputum, no excessive sputum, no shortness of breath Gastrointestinal: no abdominal pain, no nausea, no vomiting, no diarrhea, no constipation Genitourinary Male: no hematuria, no flank pain, no discharge, no urinary frequency, no urinary hesitancy Rectal: no pain, no incontinence, no bleeding Musculoskeletal: no neck stiffness, no neck pain, no shooting arm pain, no arm numbness/tingling, no low back pain Integumentary: no rash, no pruritis, no redness, no sores, no jaundice Neurological: no transient paralysis, no paralysis, no seizures Psychiatric: no anxiety, no memory loss, no sleep disturbances, no change in appetite, no suicidal ideation Endocrine: no cold intolerance, no heat intolerance, no excessive thirst, no polydipsia, no nocturia Hematologic/Lymphatic: no easy bruising, no easy bleeding Allergic/Immunologic: no urticaria, no allergic rhinitis, no wheezing Exam - Constitutional Vitals: Temp Pulse Resp BP Pulse Ox 97.4 F L 71 16 150/99 99 08/28/20 08:21 08/28/20 13:15 08/28/20 13:15 08/28/20 13:15 08/28/20 13:15 General appearance: Present: mild distress, cachectic, disheveled, malodorous - EENT Eyes: Present: PERRL ENT: hearing intact, clear oral mucosa - Neck Neck: Present: supple, normal ROM - Respiratory Respiratory effort: normal Respiratory: bilateral: CTA - Cardiovascular Heart Sounds: Present: S1 & S2. Absent: rub, click - Extremities Extremities: pulses symmetrical, No edema Peripheral Pulses: within normal limits - Abdominal General gastrointestinal: Present: soft, non-tender, non-distended, normal bowel sounds Localized gastrointestinal: tender: epigastric periumbilical Male genitourinary: Present: normal - Integumentary Integumentary: Present: clear, warm, dry - Musculoskeletal Musculoskeletal: gait normal, strength equal bilaterally - Psychiatric Psychiatric: appropriate mood/affect, intact judgment & insight - Neurologic Neurologic: CNII-XII intact, moves all extremities HEART Score - HEART Score EKG: Non-specific Age: 45-65 Risk factors: > 3 risk factors or hx of atherosclerotic disease Troponin: Troponin T 0.062 ng/mL (0.00-0.029) H 08/28/20 13:52 Troponin: 1-3x normal limit Results - Labs CBC & Chem 7: 08/28/20 09:38 08/28/20 09:38 Labs: Abnormal lab results 08/28/20 08/28/20 08/28/20 Range/Units 09:38 09:38 09:38 Hgb 11.6 L (11.8-15.2) gm/dl MCH 27 L (28-32) pg RDW 18.8 H (13.2-15.2) % [place] % (Auto) 12.7 H (0.0-7.3) % [place] # (Auto) 1.0 H (0.0-0.8) K/mm3 PT 19.7 H (12.2-14.9) Sec. INR 1.67 H (0.87-1.13) Sodium 133 L (137-145) mmol/L BUN 23 H (9-20) mg/dL Creatinine 1.8 H (0.8-1.3) mg/dL Glucose 102 H (75-100) mg/dL Direct Bilirubin (0-0.2) mg/dL AST (5-40) units/L Total Creatine Kinase 52 L (55-170) units/L Troponin T 0.064 H (0.00-0.029) ng/mL NT-Pro-B Natriuret Pep (0-900) pg/mL Total Protein (6.3-8.2) g/dL Albumin (3.9-5) g/dL 08/28/20 08/28/20 Range/Units 09:38 13:52 Hgb (11.8-15.2) gm/dl MCH (28-32) pg RDW (13.2-15.2) % [place] % (Auto) (0.0-7.3) % [place] # (Auto) (0.0-0.8) K/mm3 PT (12.2-14.9) Sec. INR (0.87-1.13) Sodium (137-145) mmol/L BUN (9-20) mg/dL Creatinine (0.8-1.3) mg/dL Glucose (75-100) mg/dL Direct Bilirubin 0.3 H (0-0.2) mg/dL AST 45 H (5-40) units/L Total Creatine Kinase (55-170) units/L Troponin T 0.062 H (0.00-0.029) ng/mL NT-Pro-B Natriuret Pep 6256 H (0-900) pg/mL Total Protein 6.2 L (6.3-8.2) g/dL Albumin 3.2 L (3.9-5) g/dL Assessment and Plan - Patient Problems (1) Congestive heart failure Current Visit: Yes Status: Acute Qualifiers: Heart failure type: diastolic Heart failure chronicity: acute on chronic Qualified Code(s): I50.33 - Acute on chronic diastolic (congestive) heart failure Plan to address problem: Strict I/O, monitor uop q shift, bnp, afterload reduction, blood pressure control. (2) GERD (gastroesophageal reflux disease) Current Visit: Yes Status: Acute Qualifiers: Esophagitis presence: without esophagitis Qualified Code(s): K21.9 - Gastro-esophageal reflux disease without esophagitis Plan to address problem: PPI therapy, continue medical management. (3) History of DVT (deep vein thrombosis) Current Visit: Yes Status: Acute Plan to address problem: continue therapeutic anticoagulation, (4) HTN (hypertension) Current Visit: No Status: Chronic Qualifiers: Hypertension type: essential hypertension Qualified Code(s): I10 - Essential (primary) hypertension Plan to address problem: Monitor BP q shift, continue medical management. (5) MU (acute kidney injury) Current Visit: Yes Status: Acute Plan to address problem: monitor uop q shift, urine electrolytes, outpatient nephrology F/U. (6) GERD (gastroesophageal reflux disease) Current Visit: Yes Status: Acute Plan to address problem: PPi therapy, carafate, (7) Atypical chest pain Current Visit: Yes Status: Acute Plan to address problem: Suspected secondary to GERD, Carafate P/O, (8) DVT prophylaxis Current Visit: Yes Status: Acute Plan to address problem: SCD to BLE while in bed, continue therapeutic anticoagulation.
[2020-08-28] MEDS ORDERED: ACETAMINOPHEN 325 MG TAB PO PRN (14:54)
[2020-08-28] MEDS ORDERED: ONDANSETRON 4 MG/2 ML INJ IV PRN (14:54)
[2020-08-28] MEDS ORDERED: HYDROmorphone 1 MG/1 ML INJ IV ONE (16:40)
[2020-08-28] MEDS: hydrALAZINE 25 MG TAB PO SCH ×2 (17:05→21:18)
[2020-08-28] MEDS: SUCRALFATE 1 GM/10 ML ORAL LIQD PO SCH (21:17)
[2020-08-28] MEDS: SODIUM BICARBONATE 650 MG TAB PO SCH (21:18)
[2020-08-28] MEDS: METOPROLOL TARTRATE 50 MG TAB PO SCH (21:18)
[2020-08-28] MEDS: DOCUSATE SODIUM 100 MG CAP PO SCH (21:18)
[2020-08-29] MEDS: SUCRALFATE 1 GM/10 ML ORAL LIQD PO SCH ×7 (00:35→22:29)
[2020-08-29] MEDS: hydrALAZINE 25 MG TAB PO SCH ×3 (05:48→22:29)
[2020-08-29] MEDS: HYDROmorphone 1 MG/1 ML INJ IV PRN (05:49)
[2020-08-29 06:34] LABS: Basophils # (Auto) 0.1 K/mm3 (0.0-0.1); Basophils % (Auto) 1.2 % (0.0-1.8); Eosinophils % (Auto) 0.2 % (0.0-4.3); Lymphocytes % (Auto) 26.4 % (13.4-35.0); Mean Corpuscular HGB Conc 33 % (32-34); Mean Corpuscular Volume 84 fl (84-94); Monocytes # (Auto) 0.9 K/mm3 (0.0-0.8); Monocytes % (Auto) 12.6 % (0.0-7.3); Platelet Count 186 K/mm3 (140-440); Red Blood Count 4.42 M/mm3 (3.65-5.03); Red Cell Distribution Width 19.3 % (13.2-15.2)
--- NOTE | 2020-08-29 08:25 | Progress Note ---
Assessment and Plan Assessment and plan: Acute on chronic combined systolic/diastolic heart failure. Chronic kidney disease. Chest pain. Pulmonary hypertension History of DVT Hypertension GERD 08/29: Echocardiogram completed May 2020 revealed severe global hypokinesis of the left ventricle with systolic function severely decreased and mild concentric left ventricular hypertrophy. Right ventricular systolic pressure 82 mmHg. EF 20 to 25%. Ischemic evaluation per cardiology. Await cardiology consultation. Continue antihypertensive medications. Patient appears to be at baseline with CKD. We will consult Dr. Rea who saw the patient on the last hospitalization. Kayexalate for hyperkalemia. History Interval history: No new issues overnight. Hospitalist Physical - Constitutional Vitals: Temp Pulse Resp BP Pulse Ox 97.6 F 60 20 151/91 99 08/29/20 04:15 08/29/20 05:48 08/29/20 05:49 08/29/20 05:48 08/29/20 04:15 General appearance: Present: mild distress, cachectic, disheveled, malodorous - EENT Eyes: Present: PERRL, EOM intact ENT: hearing intact, clear oral mucosa, dentition normal - Neck Neck: Present: supple, normal ROM - Respiratory Respiratory effort: normal Respiratory: bilateral: CTA - Cardiovascular Rhythm: regular Heart Sounds: Present: S1 & S2. Absent: gallop, rub - Extremities Extremities: no ischemia, No edema, Full ROM - Abdominal General gastrointestinal: soft, non-tender, non-distended, normal bowel sounds - Integumentary Integumentary: Present: clear, warm, dry - Neurologic Neurologic: CNII-XII intact, moves all extremities HEART Score - HEART Score EKG: Non-specific Age: 45-65 Risk factors: > 3 risk factors or hx of atherosclerotic disease Troponin: Troponin T < 0.010 ng/mL (0.00-0.029) 08/28/20 16:32 Troponin: 1-3x normal limit Results - Labs CBC & Chem 7: 08/29/20 05:58 08/29/20 05:58 Labs: Laboratory Last Values WBC 7.5 K/mm3 (4.5-11.0) 08/29/20 05:58 RBC 4.42 M/mm3 (3.65-5.03) 08/29/20 05:58 Hgb 12.0 gm/dl (11.8-15.2) 08/29/20 05:58 Hct 37.0 % (35.5-45.6) 08/29/20 05:58 MCV 84 fl (84-94) 08/29/20 05:58 MCH 27 pg (28-32) L 08/29/20 05:58 MCHC 33 % (32-34) 08/29/20 05:58 RDW 19.3 % (13.2-15.2) H 08/29/20 05:58 Plt Count 186 K/mm3 (140-440) 08/29/20 05:58 Lymph % (Auto) 26.4 % (13.4-35.0) 08/29/20 05:58 [place] % (Auto) 12.6 % (0.0-7.3) H 08/29/20 05:58 Eos % (Auto) 0.2 % (0.0-4.3) 08/29/20 05:58 Baso % (Auto) 1.2 % (0.0-1.8) 08/29/20 05:58 Lymph # (Auto) 2.0 K/mm3 (1.2-5.4) 08/29/20 05:58 [place] # (Auto) 0.9 K/mm3 (0.0-0.8) H 08/29/20 05:58 Eos # (Auto) 0.0 K/mm3 (0.0-0.4) 08/29/20 05:58 Baso # (Auto) 0.1 K/mm3 (0.0-0.1) 08/29/20 05:58 Seg Neutrophils % 59.6 % (40.0-70.0) 08/29/20 05:58 Seg Neutrophils # 4.5 K/mm3 (1.8-7.7) 08/29/20 05:58 PT 19.7 Sec. (12.2-14.9) H 08/28/20 09:38 INR 1.67 (0.87-1.13) H 08/28/20 09:38 APTT 31.6 Sec. (24.2-36.6) 08/28/20 09:38 Sodium 133 mmol/L (137-145) L 08/29/20 05:58 Potassium 6.2 mmol/L (3.6-5.0) H* D 08/29/20 05:58 Chloride 99.7 mmol/L (98-107) 08/29/20 05:58 Carbon Dioxide 16 mmol/L (22-30) L 08/29/20 05:58 Anion Gap 24 mmol/L 08/29/20 05:58 BUN 36 mg/dL (9-20) H 08/29/20 05:58 Creatinine 2.3 mg/dL (0.8-1.3) H 08/29/20 05:58 Estimated GFR 35 ml/min 08/29/20 05:58 BUN/Creatinine Ratio 16 % 08/29/20 05:58 Glucose 94 mg/dL (75-100) 08/29/20 05:58 Calcium 9.0 mg/dL (8.4-10.2) 08/29/20 05:58 Magnesium 2.00 mg/dL (1.7-2.3) 08/28/20 09:38 Total Bilirubin 0.60 mg/dL (0.1-1.2) 08/28/20 09:38 Direct Bilirubin 0.3 mg/dL (0-0.2) H 08/28/20 09:38 Indirect Bilirubin 0.3 mg/dL 08/28/20 09:38 AST 45 units/L (5-40) H 08/28/20 09:38 ALT 43 units/L (7-56) 08/28/20 09:38 Alkaline Phosphatase 120 units/L (35-129) 08/28/20 09:38 Total Creatine Kinase 52 units/L (55-170) L 08/28/20 09:38 CK-MB (CK-2) 1.3 ng/mL (0.0-4.0) 08/28/20 09:38 CK-MB (CK-2) Rel Index 2.5 (0-4) 08/28/20 09:38 Troponin T < 0.010 ng/mL (0.00-0.029) 08/28/20 16:32 NT-Pro-B Natriuret Pep 6256 pg/mL (0-900) H 08/28/20 09:38 Total Protein 6.2 g/dL (6.3-8.2) L 08/28/20 09:38 Albumin 3.2 g/dL (3.9-5) L 08/28/20 09:38 Albumin/Globulin Ratio 1.1 % 08/28/20 09:38 Triglycerides 73 mg/dL (2-149) 08/28/20 09:38 Cholesterol 144 mg/dL (50-199) 08/28/20 09:38 LDL Cholesterol Direct 69 mg/dL (50-130) 08/28/20 09:38 HDL Cholesterol 52 mg/dL (40-59) 08/28/20 09:38 Cholesterol/HDL Ratio 2.76 % 08/28/20 09:38 [place]/IV: Voiding Method Toilet Active Medications - Current Medications Current Medications: Generic Name Dose Route Start Last Admin Trade Name Freq PRN Reason Stop Dose Admin Acetaminophen 650 mg 08/28/20 14:54 Acetaminophen 325 Mg Tab PO Q4H PRN Pain MILD(1-3)/Fever >100.5/CROOKS Amlodipine Besylate 10 mg 08/29/20 10:00 Amlodipine 10 Mg Tab PO QDAY [facility] Aspirin 81 mg 08/29/20 10:00 Aspirin 81 Mg Tab Chew PO QDAY [facility] Docusate Sodium 100 mg 08/28/20 22:00 08/28/20 21:18 Docusate Sodium 100 Mg Cap PO 100 mg BID SURYA Administration Hydralazine HCl 50 mg 08/28/20 15:00 08/29/20 05:48 Hydralazine 25 Mg Tab PO 50 mg Q8HR SURYA Administration Hydromorphone HCl 0.5 mg 08/28/20 17:11 08/29/20 05:49 Hydromorphone 1 Mg/1 Ml Inj IV 0.5 mg Q4H PRN Administration Pain , Severe (7-10) Isosorbide Mononitrate 30 mg 08/29/20 10:00 Isosorbide Mononitrate Er 30 Mg Tab PO QDAY [facility] Metoprolol Tartrate 50 mg 08/28/20 22:00 08/28/20 21:18 Metoprolol Tartrate 50 Mg Tab PO 50 mg BID SURYA Administration Ondansetron HCl 4 mg 08/28/20 14:54 Ondansetron 4 Mg/2 Ml Inj IV Q8H PRN Nausea And Vomiting Pantoprazole Sodium 40 mg 08/29/20 10:00 Pantoprazole 40 Mg Tab PO DAILY [facility] Sodium Bicarbonate 650 mg 08/28/20 22:00 08/28/20 21:18 Sodium Bicarbonate 650 Mg Tab PO 650 mg BID SURYA Administration Sodium Chloride 10 ml 08/28/20 22:00 08/28/20 21:20 Sodium Chloride 0.9% 10 Ml Flush Syringe IV 10 ml BID SURYA Administration Sodium Chloride 10 ml 08/28/20 14:54 Sodium Chloride 0.9% 10 Ml Flush Syringe IV PRN PRN LINE FLUSH Sucralfate 1 gm 08/28/20 19:00 08/29/20 00:35 Sucralfate 1 Gm/10 Ml Oral Liqd PO 1 gm ACHS SURYA Administration
[2020-08-29] MEDS: ASPIRIN 81 MG TAB CHEW PO SCH (09:00)
[2020-08-29] MEDS: SODIUM BICARBONATE 650 MG TAB PO SCH ×2 (09:00→22:30)
[2020-08-29] MEDS ORDERED: SODIUM POLYSTYRENE 15 GM/60 ML ORAL LIQD PO ONE (09:00)
[2020-08-29] MEDS: DOCUSATE SODIUM 100 MG CAP PO SCH ×2 (09:00→22:30)
[2020-08-29] MEDS: METOPROLOL TARTRATE 50 MG TAB PO SCH ×2 (09:01→22:30)
[2020-08-29] MEDS: PANTOPRAZOLE 40 MG TAB PO SCH (09:01)
--- NOTE | 2020-08-29 09:44 | Consultation ---
History of Present Illness - Reason for Consult Consult date: 08/29/20 acute renal failure, hyperkalemia Requesting physician: XIN LEPE - History of Present Illness This is a 60 yo M, known to our group from prior hospitalizations, with past medical history of hypertension, diabetes, and chronic systolic heart failure, h/o COVID 19 pneumonia requiring hospitalization in 03/2020, who presented to the emergency department with complaints of chest pain, preventing him from sleep, with intensity of 6-10/10, associated with some shortness of breath. Pt is admitted for further cardiac evaluation. CT C/A/P showed cardiomegaly with diffuse mesenteric edema and ascites and fluid in superior mediastinum progressed compared to prior imaging. labs showed elevated BUN/Cr at 36/2.3mg/dl aloing with hyperkalemia with K at 6.2 and mild hyponatremia, for which renal c onsult is requested. Cr was around 2-2.3 during previous hospitalizations. Pt denies recent NSAIDs use or IV contrast exposure. Past History Past Medical History: DVT, GERD, heart failure, hypertension Past Surgical History: No surgical history, Other (reviewed) Social history: single. denies: smoking, alcohol abuse, prescription drug abuse Family history: hypertension Medications and Allergies Allergies Allergy/AdvReac Type Severity Reaction Status Date / Time No Known Allergies Allergy Verified 08/28/20 18:31 Home Medications Medication Instructions Recorded Confirmed Last Taken Type Aspirin [Aspirin BABY CHEW TAB] 81 mg PO QDAY #30 tab.chew 05/01/20 08/28/20 Unknown Rx Pantoprazole Sodium 40 mg PO DAILY #30 tablet. 05/01/20 08/28/20 Unknown Rx Sodium Bicarbonate 650 mg PO BID #30 tablet 05/01/20 08/28/20 Unknown Rx amLODIPine 10 mg PO QDAY #30 tablet 05/01/20 08/28/20 Unknown Rx ISOSORBIDE MONOnitrate [Imdur ER] 30 mg PO QDAY #30 tablet 06/24/20 08/28/20 Unknown Rx Metoprolol [Lopressor TAB] 50 mg PO BID #60 tablet 06/24/20 08/28/20 Unknown Rx hydrALAZINE [Apresoline TAB] 50 mg PO Q8HR #90 tablet 06/24/20 08/28/20 Unknown Rx Albuterol Mdi (or & Nicu Only) 2 puff IH QID PRN #8.5 gram 06/27/20 08/28/20 Unknown Rx [ProAir HFA Inhaler] Omeprazole 20 mg PO QDAY #30 tab. 06/27/20 08/28/20 Unknown Rx Docusate Sodium [Colace] 100 mg PO BID #30 capsule 06/28/20 08/28/20 Unknown Rx Lactulose 10 gm PO DAILY PRN #60 ml 06/28/20 08/28/20 Unknown Rx Active Meds: Active Medications Acetaminophen (Acetaminophen 325 Mg Tab) 650 mg PO Q4H PRN PRN Reason: Pain MILD(1-3)/Fever >100.5/CROOKS Amlodipine Besylate (Amlodipine 10 Mg Tab) 10 mg PO QDAY [facility] Last Admin: 08/29/20 09:01 Dose: 10 mg Documented by: Aspirin (Aspirin 81 Mg Tab Chew) 81 mg PO QDAY [facility] Last Admin: 08/29/20 09:00 Dose: 81 mg Documented by: Docusate Sodium (Docusate Sodium 100 Mg Cap) 100 mg PO BID [facility] Last Admin: 08/29/20 09:00 Dose: 100 mg Documented by: Furosemide (Furosemide 40 Mg/4 Ml Inj) 40 mg IV QDAY [facility] Hydralazine HCl (Hydralazine 25 Mg Tab) 50 mg PO Q8HR [facility] Last Admin: 08/29/20 05:48 Dose: 50 mg Documented by: Hydromorphone HCl (Hydromorphone 1 Mg/1 Ml Inj) 0.5 mg IV Q4H PRN PRN Reason: Pain , Severe (7-10) Last Admin: 08/29/20 05:49 Dose: 0.5 mg Documented by: Isosorbide Mononitrate (Isosorbide Mononitrate Er 30 Mg Tab) 30 mg PO QDAY [facility] Last Admin: 08/29/20 09:01 Dose: 30 mg Documented by: Metoprolol Tartrate (Metoprolol Tartrate 50 Mg Tab) 50 mg PO BID [facility] Last Admin: 08/29/20 09:01 Dose: 50 mg Documented by: Ondansetron HCl (Ondansetron 4 Mg/2 Ml Inj) 4 mg IV Q8H PRN PRN Reason: Nausea And Vomiting Pantoprazole Sodium (Pantoprazole 40 Mg Tab) 40 mg PO DAILY [facility] Last Admin: 08/29/20 09:01 Dose: 40 mg Documented by: Sodium Bicarbonate (Sodium Bicarbonate 650 Mg Tab) 650 mg PO BID [facility] Last Admin: 08/29/20 09:00 Dose: 650 mg Documented by: Sodium Chloride (Sodium Chloride 0.9% 10 Ml Flush Syringe) 10 ml IV BID [facility] Last Admin: 08/29/20 09:02 Dose: 10 ml Documented by: Sodium Chloride (Sodium Chloride 0.9% 10 Ml Flush Syringe) 10 ml IV PRN PRN PRN Reason: LINE FLUSH Sucralfate (Sucralfate 1 Gm/10 Ml Oral Liqd) 1 gm PO ACHS [facility] Last Admin: 08/29/20 09:06 Dose: Not Given Documented by: Review of Systems All systems: negative Constitutional: weakness, malaise Cardiovascular: chest pain, shortness of breath Exam - Vital Signs Vital signs: Vital Signs Temp Pulse Resp BP Pulse Ox 97.4 F L 57 L 20 138/95 85 08/28/20 08:21 08/28/20 08:21 08/28/20 08:21 08/28/20 08:21 08/28/20 08:21 - General Appearance General appearance: well-developed, appears stated age, chronically ill EENT: ATNC, PERRL, mucous membranes moist Neck: Present: neck supple Respiratory: Decreased Breath Sounds Heart: regular, S1S2 Gastrointestinal: Present: normoactive bowel sounds Integumentary: no rash, other (no edema ) Neurologic: no focal deficit, alert and oriented x3, strength 5/5, CN 3-12 intact Psychiatric: mood/affect appropriate, cooperative Results - Lab Results 08/29/20 05:58 08/29/20 05:58 Most recent lab results Calcium 9.0 mg/dL (8.4-10.2) 08/29/20 05:58 Magnesium 2.00 mg/dL (1.7-2.3) 08/28/20 09:38 Assessment and Plan - Patient Problems (1) MU (acute kidney injury) Current Visit: Yes Status: Acute Plan to address problem: likely pre-renal azotemia in the setting of acute cardiorenal syndrome, pt with evidence of mesenteric edema/ascites, mediastinal fluid collection on CT, and hypervolemic hypernatremia. Will treat with IV lasix 40 daily, treat hyperkalemia medically with D50/Insuin, Kayexalate. check UA, urine lytes, urine P/C ratio. Avoid further nephrotoxins, NSAIDs. Will monitor lytes, renal parameters closely and make further recommendations. (2) Hyponatremia Current Visit: Yes Status: Acute Plan to address problem: hypervolemic hyponatremia, volume control with IV lasix (3) Hyperkalemia Current Visit: Yes Status: Acute Plan to address problem: likely secondary to decreased distal tubular Na delivery, treat hyperkalemia medically with D50/Insuin, Kayexalate. added IV lasix for volume control and further kaliuresis (4) Chronic systolic (congestive) heart failure Current Visit: Yes Status: Acute Plan to address problem: volume control with lasix , currently on BB. Cont ISDN, hydralazine for afterload reduction (5) Chronic kidney disease, stage 3b Current Visit: Yes Status: Acute Plan to address problem: likely 2/2 hypertensive nephrosclerosis/chronic cardiorenal syndrome. supportive care for MU on CKD as above. (6) Metabolic acidosis Current Visit: No Status: Acute Plan to address problem: cont sodium bicarb 650mg po bid
[2020-08-29] MEDS ORDERED: amLODIPine 10 MG TAB PO SCH (10:00)
[2020-08-29] MEDS ORDERED: OMEPRAZOLE 20 MG PO SCH (10:00)
[2020-08-29] MEDS ORDERED: FUROSEMIDE 40 MG/4 ML INJ IV SCH ×2 (10:00→18:00)
--- NOTE | 2020-08-29 10:56 | Consultation ---
History of Present Illness Consult date: 08/29/20 Requesting physician: XIN LEPE Consult reason: congestive heart failure History of present illness: Pt is a 60-year-old AA male with a hx of CMP (EF 20-25%), chronic HFrEF, COPD, severe pulm HTN, and severe MR who presents with complaints of SOB x 2 weeks. Pt was recently hospitalized at [facility] for MU on CKD and GI sx/gastroenteritis, at which time he was diagnosed with BLE DVT and initiated on Eliquis. Pt was also seen by our group as an outpatient in June 2020. He was scheduled for a stress test at that time but has neglected to follow-up. Pt now presents stating he has been SOB and orthopneic since being discharged from [facility]. He also reports intermittent left-sided chest pain, dull in nature and noted to be worse with deep inspiration. Mehrdad minimally elevated. BNP significantly elevated upon arrival. CT chest/abd/pelvis reveals cardiomegaly and diffuse edema, along with ascites. Of note, this pt has a hx of non-compliance with follow-ups and medications contributing to frequent hospitalizations. Past History Past Medical History: DVT, GERD, heart failure, hypertension, renal failure Past Surgical History: No surgical history Social history: single, smoking. denies: alcohol abuse Family history: hypertension Medications and Allergies Allergies Allergy/AdvReac Type Severity Reaction Status Date / Time No Known Allergies Allergy Verified 08/28/20 18:31 Home Medications Medication Instructions Recorded Confirmed Last Taken Type Aspirin [Aspirin BABY CHEW TAB] 81 mg PO QDAY #30 tab.chew 05/01/20 08/28/20 Unknown Rx Pantoprazole Sodium 40 mg PO DAILY #30 tablet. 05/01/20 08/28/20 Unknown Rx Sodium Bicarbonate 650 mg PO BID #30 tablet 05/01/20 08/28/20 Unknown Rx amLODIPine 10 mg PO QDAY #30 tablet 05/01/20 08/28/20 Unknown Rx ISOSORBIDE MONOnitrate [Imdur ER] 30 mg PO QDAY #30 tablet 06/24/20 08/28/20 Unknown Rx Metoprolol [Lopressor TAB] 50 mg PO BID #60 tablet 06/24/20 08/28/20 Unknown Rx hydrALAZINE [Apresoline TAB] 50 mg PO Q8HR #90 tablet 06/24/20 08/28/20 Unknown Rx Albuterol Mdi (or & Nicu Only) 2 puff IH QID PRN #8.5 gram 06/27/20 08/28/20 Unknown Rx [ProAir HFA Inhaler] Omeprazole 20 mg PO QDAY #30 tab. 06/27/20 08/28/20 Unknown Rx Docusate Sodium [Colace] 100 mg PO BID #30 capsule 06/28/20 08/28/20 Unknown Rx Lactulose 10 gm PO DAILY PRN #60 ml 06/28/20 08/28/20 Unknown Rx Active Meds: Active Medications Acetaminophen (Acetaminophen 325 Mg Tab) 650 mg PO Q4H PRN PRN Reason: Pain MILD(1-3)/Fever >100.5/CROOKS Amlodipine Besylate (Amlodipine 10 Mg Tab) 10 mg PO QDAY [facility] Last Admin: 08/29/20 09:01 Dose: 10 mg Documented by: Aspirin (Aspirin 81 Mg Tab Chew) 81 mg PO QDAY [facility] Last Admin: 08/29/20 09:00 Dose: 81 mg Documented by: Docusate Sodium (Docusate Sodium 100 Mg Cap) 100 mg PO BID [facility] Last Admin: 08/29/20 09:00 Dose: 100 mg Documented by: Furosemide (Furosemide 40 Mg/4 Ml Inj) 40 mg IV QDAY [facility] Last Admin: 08/29/20 10:41 Dose: 40 mg Documented by: Hydralazine HCl (Hydralazine 25 Mg Tab) 50 mg PO Q8HR [facility] Last Admin: 08/29/20 05:48 Dose: 50 mg Documented by: Hydromorphone HCl (Hydromorphone 1 Mg/1 Ml Inj) 0.5 mg IV Q4H PRN PRN Reason: Pain , Severe (7-10) Last Admin: 08/29/20 05:49 Dose: 0.5 mg Documented by: Isosorbide Mononitrate (Isosorbide Mononitrate Er 30 Mg Tab) 30 mg PO QDAY [facility] Last Admin: 08/29/20 09:01 Dose: 30 mg Documented by: Metoprolol Tartrate (Metoprolol Tartrate 50 Mg Tab) 50 mg PO BID [facility] Last Admin: 08/29/20 09:01 Dose: 50 mg Documented by: Ondansetron HCl (Ondansetron 4 Mg/2 Ml Inj) 4 mg IV Q8H PRN PRN Reason: Nausea And Vomiting Pantoprazole Sodium (Pantoprazole 40 Mg Tab) 40 mg PO DAILY [facility] Last Admin: 08/29/20 09:01 Dose: 40 mg Documented by: Sodium Bicarbonate (Sodium Bicarbonate 650 Mg Tab) 650 mg PO BID [facility] Last Admin: 08/29/20 09:00 Dose: 650 mg Documented by: Sodium Chloride (Sodium Chloride 0.9% 10 Ml Flush Syringe) 10 ml IV BID [facility] Last Admin: 08/29/20 09:02 Dose: 10 ml Documented by: Sodium Chloride (Sodium Chloride 0.9% 10 Ml Flush Syringe) 10 ml IV PRN PRN PRN Reason: LINE FLUSH Sucralfate (Sucralfate 1 Gm/10 Ml Oral Liqd) 1 gm PO ACHS [facility] Last Admin: 08/29/20 10:41 Dose: 1 gm Documented by: Review of Systems Constitutional: no fever, no chills Ears, nose, mouth and throat: no nasal congestion, no sore throat Cardiovascular: chest pain, orthopnea, dyspnea on exertion, paroxysmal nocturnal dyspnea, claudication, no palpitations, no rapid/irregular heart beat, no edema, no syncope, no lightheadedness Respiratory: shortness of breath, dyspnea on exertion, no cough, no wheezing Gastrointestinal: no abdominal pain, no nausea, no vomiting, no diarrhea, no constipation Genitourinary Male: no dysuria, no flank pain Musculoskeletal: myalgias, no neck stiffness, no neck pain Integumentary: no rash, no wounds Neurological: no head injury, no paralysis, no weakness, no parathesias, no n umbness, no tingling, no seizures, no syncope, no vertigo, no headaches Endocrine: no cold intolerance, no heat intolerance, no polydipsia, no polyuria Hematologic/Lymphatic: no easy bruising, no easy bleeding Allergic/Immunologic: no urticaria, no anaphylaxis Physical Examination Last Vital Signs Temp 98.4 F 08/29/20 08:03 Pulse 64 08/29/20 08:03 Resp 18 08/29/20 08:03 BP 145/84 08/29/20 09:01 Pulse Ox 96 08/29/20 08:03 General appearance: no acute distress HEENT: Positive: EOMI, Normocephaly, Mucus Membranes Moist Neck: Positive: neck supple, trachea midline. Negative: JVD/HJR Cardiac: Positive: Reg Rate and Rhythm, S1/S2, Audible Murmur (2/6 systolic murmur) Lungs: Positive: Decreased Breath Sounds Neuro: Positive: Grossly Intact Abdomen: Positive: Firm. Negative: Tender Skin: Negative: Rash Musculoskeletal: No Fluid Collection, Normal Range of Motion Extremities: Present: upper extr. pulses, lower extr. pulses. Absent: edema Results 08/29/20 05:58 08/29/20 05:58 CBC 08/29/20 Range/Units 05:58 WBC 7.5 (4.5-11.0) K/mm3 RBC 4.42 (3.65-5.03) M/mm3 Hgb 12.0 (11.8-15.2) gm/dl Hct 37.0 (35.5-45.6) % Plt Count 186 (140-440) K/mm3 Lymph # (Auto) 2.0 (1.2-5.4) K/mm3 [place] # (Auto) 0.9 H (0.0-0.8) K/mm3 Eos # (Auto) 0.0 (0.0-0.4) K/mm3 Baso # (Auto) 0.1 (0.0-0.1) K/mm3 Comprehensive Metabolic Panel 08/29/20 Range/Units 05:58 Sodium 133 L (137-145) mmol/L Potassium 6.2 H* D (3.6-5.0) mmol/L Chloride 99.7 (98-107) mmol/L Carbon Dioxide 16 L (22-30) mmol/L BUN 36 H (9-20) mg/dL Creatinine 2.3 H (0.8-1.3) mg/dL Glucose 94 (75-100) mg/dL Calcium 9.0 (8.4-10.2) mg/dL - Imaging and Cardiology Echo: report reviewed (06/27/2020 - EF 20-25%, mild-mod AR, severe MR, mod TR, RVSP 82mmHg) EKG: report reviewed, image reviewed - EKG Interpretation EKG: no acute changes EKG interpretations - Telemetry EKG Rhythm: Sinus Rhythm - EKG Sinus rhythms and dysrhythmias: sinus rhythm Chamber hypertrophy or enlargement: left ventricular hypertro Assessment and Plan Obtain 12-lead ECG. Plan for Lexiscan stress MPI in AM. NPO after midnight. Resume Eliquis for acute BLE DVT dx approximately 2 weeks ago. Agree with IV Lasix daily with strict I/Os as per Christiano recs. K correction underway per Nephro. Continue BB. Will consider addition of ACEi/ARB/ARNi when renal fxn is stable. Plan for outpatient work-up of valvulopathy when stable. Pt seen in conjunction with Dr. Diego, who agrees with the assessment and plan of care. 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 Plan to address problem: EF 20-25% on echo 05/2020 (3) Ascites Current Visit: Yes Status: Acute (4) Acute kidney injury superimposed on CKD Current Visit: Yes Status: Acute (5) Hyperkalemia Current Visit: Yes Status: Acute (6) COPD (chronic obstructive pulmonary disease) Current Visit: Yes Status: Chronic (7) Severe pulmonary hypertension Current Visit: Yes Status: Chronic (8) Severe mitral regurgitation Current Visit: Yes Status: Chronic (9) DVT, bilateral lower limbs Current Visit: Yes Status: Acute (10) Atypical chest pain Current Visit: Yes Status: Acute (11) Elevated troponin Current Visit: Yes Status: Acute (12) Essential hypertension Current Visit: Yes Status: Chronic (13) GERD (gastroesophageal reflux disease) Current Visit: Yes Status: Chronic (14) History of tobacco abuse Current Visit: Yes Status: Chronic (15) History of cocaine abuse Current Visit: Yes Status: Resolved (16) Chronic pain Current Visit: Yes Status: Chronic (17) Medical non-compliance Current Visit: Yes Status: Chronic
[2020-08-29] MEDS: APIXABAN 5 MG TAB PO SCH ×2 (13:06→22:29)
[2020-08-29 13:49] LABS: Hemoglobin 11.6 gm/dl (11.8-15.2); Mean Corpuscular HGB Conc 32 % (32-34); Mean Corpuscular Volume 84 fl (84-94); Platelet Count 194 K/mm3 (140-440); Red Blood Count 4.29 M/mm3 (3.65-5.03); Red Cell Distribution Width 19.4 % (13.2-15.2)
[2020-08-29 14:04] LABS: INR 1.7 (0.87-1.13); Partial Thromboplastin Time 34.4 Sec. (24.2-36.6)
[2020-08-29 18:21] LABS: Calcium 9.2 mg/dL (8.4-10.2)
[2020-08-30] MEDS: hydrALAZINE 25 MG TAB PO SCH ×3 (05:42→21:56)
[2020-08-30 05:54] LABS: Basophils # (Auto) 0.1 K/mm3 (0.0-0.1); Basophils % (Auto) 1.4 % (0.0-1.8); Eosinophils # (Auto) 0.1 K/mm3 (0.0-0.4); Eosinophils % (Auto) 1.4 % (0.0-4.3); Hematocrit 33.8 % (35.5-45.6); Lymphocytes # (Auto) 1.8 K/mm3 (1.2-5.4); Lymphocytes % (Auto) 26.4 % (13.4-35.0); Mean Corpuscular HGB Conc 33 % (32-34); Mean Corpuscular Volume 83 fl (84-94); Monocytes # (Auto) 0.9 K/mm3 (0.0-0.8); Platelet Count 185 K/mm3 (140-440); Red Blood Count 4.08 M/mm3 (3.65-5.03); Red Cell Distribution Width 19.7 % (13.2-15.2)
[2020-08-30 06:19] LABS: Calcium 8.1 mg/dL (8.4-10.2)
[2020-08-30] MEDS: SUCRALFATE 1 GM/10 ML ORAL LIQD PO SCH ×4 (08:05→21:57)
--- NOTE | 2020-08-30 08:17 | Progress Note ---
Assessment and Plan Assessment and plan: Acute on chronic combined systolic/diastolic heart failure. Chronic kidney disease. Chest pain. Pulmonary hypertension History of DVT Hypertension GERD 08/29: Echocardiogram completed May 2020 revealed severe global hypokinesis of the left ventricle with systolic function severely decreased and mild concentric left ventricular hypertrophy. Right ventricular systolic pressure 82 mmHg. EF 20 to 25%. Ischemic evaluation per cardiology. Await cardiology consultation. Continue antihypertensive medications. Patient appears to be at baseline with CKD. We will consult Dr. Rea who saw the patient on the last hospitalization. Kayexalate for hyperkalemia. 08/30: Creatinine appears to be about the same as yesterday at 2.6. Etiology of acute kidney injury is likely pre-renal azotemia/vasomotor nephropathy in the setting of acute cardiorenal syndrome, pt with evidence of mesenteric ed vannessa/ascites, mediastinal fluid collection on CT, and hypervolemic hypernatremia. Patient received Lasix, D50/insulin and Kayexalate yesterday. Hyperkalemia resolved. Follow-up urinalysis and urine electrolytes. Nephrology following. Plans for a Lexiscan stress MPI this morning. Continue Eliquis for acute BLE DVT dx approximately 2 weeks ago. Cardiology following. History Interval history: No new issues overnight. Hospitalist Physical - Constitutional Vitals: Temp Pulse Resp BP Pulse Ox 97.3 F L 65 18 131/83 96 08/30/20 07:40 08/30/20 07:40 08/30/20 07:40 08/30/20 07:40 08/30/20 07:40 General appearance: Present: no acute distress - EENT Eyes: Present: PERRL, EOM intact ENT: hearing intact, clear oral mucosa, dentition normal - Neck Neck: Present: supple, normal ROM - Respiratory Respiratory effort: normal Respiratory: bilateral: CTA - Cardiovascular Rhythm: regular Heart Sounds: Present: S1 & S2. Absent: gallop, rub - Extremities Extremities: no ischemia, No edema, Full ROM - Abdominal General gastrointestinal: soft, non-tender, non-distended, normal bowel sounds - Integumentary Integumentary: Present: clear, warm, dry - Neurologic Neurologic: CNII-XII intact, moves all extremities HEART Score - HEART Score EKG: Non-specific Age: 45-65 Risk factors: > 3 risk factors or hx of atherosclerotic disease Troponin: Troponin T < 0.010 ng/mL (0.00-0.029) 08/28/20 16:32 Troponin: 1-3x normal limit Results - Labs CBC & Chem 7: 08/30/20 05:15 08/30/20 05:15 Labs: Laboratory Last Values WBC 6.8 K/mm3 (4.5-11.0) 08/30/20 05:15 RBC 4.08 M/mm3 (3.65-5.03) 08/30/20 05:15 Hgb 11.0 gm/dl (11.8-15.2) L 08/30/20 05:15 Hct 33.8 % (35.5-45.6) L 08/30/20 05:15 MCV 83 fl (84-94) L 08/30/20 05:15 MCH 27 pg (28-32) L 08/30/20 05:15 MCHC 33 % (32-34) 08/30/20 05:15 RDW 19.7 % (13.2-15.2) H 08/30/20 05:15 Plt Count 185 K/mm3 (140-440) 08/30/20 05:15 Lymph % (Auto) 26.4 % (13.4-35.0) 08/30/20 05:15 [place] % (Auto) 13.0 % (0.0-7.3) H 08/30/20 05:15 Eos % (Auto) 1.4 % (0.0-4.3) 08/30/20 05:15 Baso % (Auto) 1.4 % (0.0-1.8) 08/30/20 05:15 Lymph # (Auto) 1.8 K/mm3 (1.2-5.4) 08/30/20 05:15 [place] # (Auto) 0.9 K/mm3 (0.0-0.8) H 08/30/20 05:15 Eos # (Auto) 0.1 K/mm3 (0.0-0.4) 08/30/20 05:15 Baso # (Auto) 0.1 K/mm3 (0.0-0.1) 08/30/20 05:15 Seg Neutrophils % 57.8 % (40.0-70.0) 08/30/20 05:15 Seg Neutrophils # 4.0 K/mm3 (1.8-7.7) 08/30/20 05:15 PT 20.0 Sec. (12.2-14.9) H 08/29/20 12:14 INR 1.70 (0.87-1.13) H 08/29/20 12:14 APTT 34.4 Sec. (24.2-36.6) 08/29/20 12:14 Sodium 138 mmol/L (137-145) 08/30/20 05:15 Potassium 3.9 mmol/L (3.6-5.0) D 08/30/20 05:15 Chloride 101.5 mmol/L (98-107) 08/30/20 05:15 Carbon Dioxide 23 mmol/L (22-30) 08/30/20 05:15 Anion Gap 17 mmol/L 08/30/20 05:15 BUN 39 mg/dL (9-20) H 08/30/20 05:15 Creatinine 2.6 mg/dL (0.8-1.3) H 08/30/20 05:15 Estimated GFR 31 ml/min 08/30/20 05:15 BUN/Creatinine Ratio 15 % 08/30/20 05:15 Glucose 116 mg/dL (75-100) H 08/30/20 05:15 POC Glucose 79 mg/dL (70-105) 08/29/20 08:02 Calcium 8.1 mg/dL (8.4-10.2) L 08/30/20 05:15 Magnesium 2.00 mg/dL (1.7-2.3) 08/28/20 09:38 Total Bilirubin 0.60 mg/dL (0.1-1.2) 08/28/20 09:38 Direct Bilirubin 0.3 mg/dL (0-0.2) H 08/28/20 09:38 Indirect Bilirubin 0.3 mg/dL 08/28/20 09:38 AST 45 units/L (5-40) H 08/28/20 09:38 ALT 43 units/L (7-56) 08/28/20 09:38 Alkaline Phosphatase 120 units/L (35-129) 08/28/20 09:38 Total Creatine Kinase 52 units/L (55-170) L 08/28/20 09:38 CK-MB (CK-2) 1.3 ng/mL (0.0-4.0) 08/28/20 09:38 CK-MB (CK-2) Rel Index 2.5 (0-4) 08/28/20 09:38 Troponin T < 0.010 ng/mL (0.00-0.029) 08/28/20 16:32 NT-Pro-B Natriuret Pep 6256 pg/mL (0-900) H 08/28/20 09:38 Total Protein 6.2 g/dL (6.3-8.2) L 08/28/20 09:38 Albumin 3.2 g/dL (3.9-5) L 08/28/20 09:38 Albumin/Globulin Ratio 1.1 % 08/28/20 09:38 Triglycerides 73 mg/dL (2-149) 08/28/20 09:38 Cholesterol 144 mg/dL (50-199) 08/28/20 09:38 LDL Cholesterol Direct 69 mg/dL (50-130) 08/28/20 09:38 HDL Cholesterol 52 mg/dL (40-59) 08/28/20 09:38 Cholesterol/HDL Ratio 2.76 % 08/28/20 09:38 Diego/IV: Voiding Method Urinal Active Medications - Current Medications Current Medications: Generic Name Dose Route Start Last Admin Trade Name Freq PRN Reason Stop Dose Admin Acetaminophen 650 mg 08/28/20 14:54 Acetaminophen 325 Mg Tab PO Q4H PRN Pain MILD(1-3)/Fever >100.5/CROOKS Apixaban 5 mg 08/29/20 12:00 08/29/20 22:29 Apixaban 5 Mg Tab PO 5 mg Q12HR SURYA Administration Protocol Aspirin 81 mg 08/29/20 10:00 08/29/20 09:00 Aspirin 81 Mg Tab Chew PO 81 mg QDAY SURYA Administration Docusate Sodium 100 mg 08/28/20 22:00 08/29/20 22:30 Docusate Sodium 100 Mg Cap PO 100 mg BID SURYA Administration Furosemide 40 mg 08/30/20 10:00 Furosemide 40 Mg/4 Ml Inj IV QDAY SURYA Hydralazine HCl 50 mg 08/28/20 15:00 08/30/20 05:42 Hydralazine 25 Mg Tab PO 50 mg Q8HR SURYA Administration Hydromorphone HCl 0.5 mg 08/28/20 17:11 08/29/20 05:49 Hydromorphone 1 Mg/1 Ml Inj IV 0.5 mg Q4H PRN Administration Pain , Severe (7-10) Isosorbide Mononitrate 30 mg 08/29/20 10:00 08/29/20 09:01 Isosorbide Mononitrate Er 30 Mg Tab PO 30 mg QDAY SURYA Administration Metoprolol Tartrate 50 mg 08/28/20 22:00 08/29/20 22:30 Metoprolol Tartrate 50 Mg Tab PO 50 mg BID SURYA Administration Ondansetron HCl 4 mg 08/28/20 14:54 Ondansetron 4 Mg/2 Ml Inj IV Q8H PRN Nausea And Vomiting Pantoprazole Sodium 40 mg 08/29/20 10:00 08/29/20 09:01 Pantoprazole 40 Mg Tab PO 40 mg DAILY SURYA Administration Sodium Bicarbonate 650 mg 08/28/20 22:00 08/29/20 22:30 Sodium Bicarbonate 650 Mg Tab PO 650 mg BID SURYA Administration Sodium Chloride 10 ml 08/28/20 22:00 08/29/20 22:34 Sodium Chloride 0.9% 10 Ml Flush Syringe IV 10 ml BID SURYA Administration Sodium Chloride 10 ml 08/28/20 14:54 Sodium Chloride 0.9% 10 Ml Flush Syringe IV PRN PRN LINE FLUSH Sucralfate 1 gm 08/28/20 19:00 08/29/20 22:29 Sucralfate 1 Gm/10 Ml Oral Liqd PO 1 gm ACHS SURYA Administration Nutrition/Malnutrition Assess - Dietary Evaluation Nutrition/Malnutrition Findings: Nutrition Notes Start: 08/29/20 11:17 Freq: Status: Active Protocol: Document 08/29/20 11:17 CW (Rec: 08/29/20 11:18 CW [id number]) Nutrition Notes Need for Assessment generated from: audio video technician Initial or Follow up Brief Note Current Diagnosis Acute Kidney Injury,CKD(stage I-IV),Hypertension,Heart Failure Other Pertinent Diagnosis GERD Current Diet Cardiac Diet Subjective/Other Information RN screen for skin risk. Simba score of 20. Skin intact, PO intake adequate. Nutrition Intervention Anticipated Discharge Needs: Cardiac Diet Revisit per MD consult or patient Sign Off request: Additional Comments S/O for intact skin and adequate PO intake
[2020-08-30] MEDS ORDERED: REGADENOSON 0.4 MG/5 ML INJ IV ONE (08:24)
--- NOTE | 2020-08-30 11:15 | Progress Note ---
Assessment and Plan - Patient Problems (1) MU (acute kidney injury) Current Visit: Yes Status: Acute Plan to address problem: likely pre-renal azotemia in the setting of acute cardiorenal syndrome, pt with evidence of mesenteric edema/ascites, mediastinal fluid collection on CT, and hypervolemic hypernatremia. cont IV lasix 40 daily to target net negative fluid balance. reinforced Na/fluid restriction, strict I/Os. K corrected with medical treatment. check UA, urine lytes, urine P/C ratio. Avoid further nephrotoxins, NSAIDs. Will monitor lytes, renal parameters closely and make further recommendations. (2) Hyponatremia Current Visit: Yes Status: Acute Plan to address problem: hypervolemic hyponatremia, volume control with IV lasix (3) Hyperkalemia Current Visit: Yes Status: Acute Plan to address problem: likely secondary to decreased distal tubular Na delivery, corrected with medical treatment. cont 2g K renal diet (4) Chronic systolic (congestive) heart failure Current Visit: Yes Status: Acute Plan to address problem: volume control with lasix , currently on BB. Cont ISDN, hydralazine for afterload reduction. RENEA-I/ARB on hold due to decreased eGFR/hyperkalemia (5) Chronic kidney disease, stage 3b Current Visit: Yes Status: Acute Plan to address problem: likely 2/2 hypertensive nephrosclerosis/chronic cardiorenal syndrome. supportive care for MU on CKD as above. (6) Metabolic acidosis Current Visit: No Status: Acute Plan to address problem: cont sodium bicarb 650mg po bid Subjective Date of service: 08/30/20 Principal diagnosis: UM on CKD Interval history: Pt awake, alert, in no acute respiratory distress Objective - Vital Signs Vital signs: Vital Signs - 12hr 08/29/20 08/30/20 08/30/20 23:40 02:00 04:01 Temperature 97.6 F 98.7 F Pulse Rate 76 63 63 Pulse Rate [ From Monitor] Respiratory 18 16 Rate Blood Pressure 125/73 125/63 O2 Sat by Pulse 96 95 Oximetry 08/30/20 08/30/20 08/30/20 05:42 07:00 07:40 Temperature 97.3 F L Pulse Rate 63 65 Pulse Rate [ 79 From Monitor] Respiratory 17 18 Rate Blood Pressure 125/63 131/83 O2 Sat by Pulse 98 96 Oximetry - General Appearance General appearance: well-developed, well-nourished, appears stated age EENT: ATNC, PERRL, mucous membranes moist Neck: no JVD Respiratory: Present: Decreased Breath Sounds Cardiology: regular, S1S2 Gastrointestinal: normoactive bowel sounds Integumentary: no rash Neurologic: no focal deficit, alert and oriented x3, strength 5/5, CN 3-12 intact - Lab 08/30/20 05:15 08/30/20 05:15 Most recent lab results Calcium 8.1 mg/dL (8.4-10.2) L 08/30/20 05:15 Magnesium 2.00 mg/dL (1.7-2.3) 08/28/20 09:38 Medications & Allergies - Medications Allergies/Adverse Reactions: Allergies No Known Allergies Allergy (Verified 08/28/20 18:31) Home Medications: Home Medications Medication Instructions Recorded Confirmed Last Taken Type Aspirin [Aspirin BABY CHEW TAB] 81 mg PO QDAY #30 tab.chew 05/01/20 08/28/20 Unknown Rx Pantoprazole Sodium 40 mg PO DAILY #30 tablet. 05/01/20 08/28/20 Unknown Rx Sodium Bicarbonate 650 mg PO BID #30 tablet 05/01/20 08/28/20 Unknown Rx amLODIPine 10 mg PO QDAY #30 tablet 05/01/20 08/28/20 Unknown Rx ISOSORBIDE MONOnitrate [Imdur ER] 30 mg PO QDAY #30 tablet 06/24/20 08/28/20 Unknown Rx Metoprolol [Lopressor TAB] 50 mg PO BID #60 tablet 06/24/20 08/28/20 Unknown Rx hydrALAZINE [Apresoline TAB] 50 mg PO Q8HR #90 tablet 06/24/20 08/28/20 Unknown Rx Albuterol Mdi (or & Nicu Only) 2 puff IH QID PRN #8.5 gram 06/27/20 08/28/20 Unknown Rx [ProAir HFA Inhaler] Omeprazole 20 mg PO QDAY #30 tab.rap. 06/27/20 08/28/20 Unknown Rx Docusate Sodium [Colace] 100 mg PO BID #30 capsule 06/28/20 08/28/20 Unknown Rx Lactulose 10 gm PO DAILY PRN #60 ml 06/28/20 08/28/20 Unknown Rx Active Medications: Generic Name Dose Route Start Last Admin Trade Name Freq PRN Reason Stop Dose Admin Acetaminophen 650 mg 08/28/20 14:54 Acetaminophen 325 Mg Tab PO Q4H PRN Pain MILD(1-3)/Fever >100.5/CROOKS Apixaban 5 mg 08/29/20 12:00 08/29/20 22:29 Apixaban 5 Mg Tab PO 5 mg Q12HR SURYA Administration Protocol Aspirin 81 mg 08/29/20 10:00 08/29/20 09:00 Aspirin 81 Mg Tab Chew PO 81 mg QDAY SURYA Administration Docusate Sodium 100 mg 08/28/20 22:00 08/29/20 22:30 Docusate Sodium 100 Mg Cap PO 100 mg BID SURYA Administration Furosemide 40 mg 08/30/20 10:00 Furosemide 40 Mg/4 Ml Inj IV QDAY SURYA Hydralazine HCl 50 mg 08/28/20 15:00 08/30/20 05:42 Hydralazine 25 Mg Tab PO 50 mg Q8HR SURYA Administration Hydromorphone HCl 0.5 mg 08/28/20 17:11 08/29/20 05:49 Hydromorphone 1 Mg/1 Ml Inj IV 0.5 mg Q4H PRN Administration Pain , Severe (7-10) Isosorbide Mononitrate 30 mg 08/29/20 10:00 08/29/20 09:01 Isosorbide Mononitrate Er 30 Mg Tab PO 30 mg QDAY SURYA Administration Metoprolol Tartrate 50 mg 08/28/20 22:00 08/29/20 22:30 Metoprolol Tartrate 50 Mg Tab PO 50 mg BID SURYA Administration Ondansetron HCl 4 mg 08/28/20 14:54 Ondansetron 4 Mg/2 Ml Inj IV Q8H PRN Nausea And Vomiting Pantoprazole Sodium 40 mg 08/29/20 10:00 08/29/20 09:01 Pantoprazole 40 Mg Tab PO 40 mg DAILY SURYA Administration Sodium Bicarbonate 650 mg 08/28/20 22:00 08/29/20 22:30 Sodium Bicarbonate 650 Mg Tab PO 650 mg BID SURYA Administration Sodium Chloride 10 ml 08/28/20 22:00 08/29/20 22:34 Sodium Chloride 0.9% 10 Ml Flush Syringe IV 10 ml BID SURYA Administration Sodium Chloride 10 ml 08/28/20 14:54 Sodium Chloride 0.9% 10 Ml Flush Syringe IV PRN PRN LINE FLUSH Sucralfate 1 gm 08/28/20 19:00 08/30/20 08:05 Sucralfate 1 Gm/10 Ml Oral Liqd PO Not Given ACHS SURYA
--- NOTE | 2020-08-30 11:25 | Progress Note ---
Assessment and Plan Pt is a 60-year-old AA male with a hx of CMP (EF 20-25%), chronic HFrEF, COPD, severe pulm HTN, and severe MR who presents with complaints of SOB x 2 weeks. Pt was recently hospitalized at [facility] for MU on CKD and GI sx/gastroenteritis, at which time he was diagnosed with BLE DVT and initiated on Eliquis. Pt was also seen by our group as an outpatient in June 2020. He was scheduled for a stress test at that time but has neglected to follow-up. Pt now presents stating he has been SOB and orthopneic since being discharged from [facility]. He also reports intermittent left-sided chest pain, dull in nature and noted to be worse with deep inspiration. Mehrdad minimally elevated. BNP significantly elevated upon arrival. CT chest/abd/pelvis reveals cardiomegaly and diffuse edema, along with ascites. Of note, this pt has a hx of non-compliance with follow-ups and medications contributing to frequent hospitalizations. Assessment and Plan Twelve-lead ECG is pending Lexiscan MPI completed this a.m. Results pending Continue Eliquis for acute BLE DVT dx approximately 2 weeks ago. Agree with IV Lasix daily with strict I/Os as per Neprho recs. Volume optimization per nephrology in setting of acute kidney injury. No ACEI/ARB in setting of acute kidney injury. Avoid nephrotoxic agents. Continue BB. Will consider addition of ACEi/ARB/ARNi when renal fxn is stable. Plan for outpatient work-up of valvulopathy when stable. Will follow Pt seen in conjunction with Dr Tan, who agrees with the assessment and plan of care. 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 Plan to address problem: EF 20-25% on echo 05/2020 (3) Ascites Current Visit: Yes Status: Acute (4) Acute kidney injury superimposed on CKD Current Visit: Yes Status: Acute (5) Hyperkalemia Current Visit: Yes Status: Acute (6) COPD (chronic obstructive pulmonary disease) Current Visit: Yes Status: Chronic (7) Severe pulmonary hypertension Current Visit: Yes Status: Chronic (8) Severe mitral regurgitation Current Visit: Yes Status: Chronic (9) DVT, bilateral lower limbs Current Visit: Yes Status: Acute (10) Atypical chest pain Current Visit: Yes Status: Acute (11) Elevated troponin Current Visit: Yes Status: Acute (12) Essential hypertension Current Visit: Yes Status: Chronic (13) GERD (gastroesophageal reflux disease) Current Visit: Yes Status: Chronic (14) History of tobacco abuse Current Visit: Yes Status: Chronic (15) History of cocaine abuse Current Visit: Yes Status: Resolved (16) Chronic pain Current Visit: Yes Status: Chronic (17) Medical non-compliance Current Visit: Yes Status: Chronic Subjective Date of service: 08/30/20 Principal diagnosis: MU on CKD Interval history: Patient resting comfortably in bed. No chest pain or shortness of breath overnight. Telemetry reviewed: Sinus rhythm 64. No events Objective Last Vital Signs Temp 97.3 F L 08/30/20 07:40 Pulse 65 08/30/20 07:40 Resp 18 08/30/20 07:40 BP 131/83 08/30/20 07:40 Pulse Ox 96 08/30/20 07:40 - Physical Examination HEENT: Positive: EOMI, Normocephaly, Mucus Membranes Moist Neck: Positive: neck supple, trachea midline. Negative: JVD/HJR Cardiac: Positive: Reg Rate and Rhythm, S1/S2 Lungs: Positive: clear to auscultation, Normal Breath Sounds Neuro: Positive: Grossly Intact Abdomen: Positive: Firm. Negative: Tender Skin: Negative: Rash Musculoskeletal: No Fluid Collection, Normal Range of Motion Extremities: Present: upper extr. pulses, lower extr. pulses. Absent: edema - Labs and Meds Coagulation 08/29/20 Range/Units 12:14 PT 20.0 H (12.2-14.9) Sec. INR 1.70 H (0.87-1.13) APTT 34.4 (24.2-36.6) Sec. CBC 08/29/20 08/30/20 Range/Units 12:14 05:15 WBC 8.0 6.8 (4.5-11.0) K/mm3 RBC 4.29 4.08 (3.65-5.03) M/mm3 Hgb 11.6 L 11.0 L (11.8-15.2) gm/dl Hct 36.0 33.8 L (35.5-45.6) % Plt Count 194 185 (140-440) K/mm3 Lymph # (Auto) 1.8 (1.2-5.4) K/mm3 Love # (Auto) 0.9 H (0.0-0.8) K/mm3 Eos # (Auto) 0.1 (0.0-0.4) K/mm3 Baso # (Auto) 0.1 (0.0-0.1) K/mm3 Comprehensive Metabolic Panel 08/29/20 08/29/20 08/30/20 Range/Units 12:14 17:54 05:15 Sodium 138 138 (137-145) mmol/L Potassium 5.1 H 3.9 D (3.6-5.0) mmol/L Chloride 101.1 101.5 (98-107) mmol/L Carbon Dioxide 18 L 23 (22-30) mmol/L BUN 41 H 39 H (9-20) mg/dL Creatinine 2.6 H 2.7 H 2.6 H (0.8-1.3) mg/dL Glucose 130 H 116 H (75-100) mg/dL Calcium 9.2 8.1 L (8.4-10.2) mg/dL - Imaging and Cardiology EKG: report reviewed, image reviewed Echo: report reviewed (06/27/2020 - EF 20-25%, mild-mod AR, severe MR, mod TR, RVSP 82mmHg) - EKG Sinus rhythms and dysrhythmias: sinus rhythm Chamber hypertrophy or enlargement: left ventricular hypertro
[2020-08-30] MEDS: SODIUM BICARBONATE 650 MG TAB PO SCH ×2 (12:10→21:56)
[2020-08-30] MEDS: DOCUSATE SODIUM 100 MG CAP PO SCH ×2 (12:10→21:57)
[2020-08-30] MEDS: FUROSEMIDE 40 MG/4 ML INJ IV SCH (12:10)
[2020-08-30] MEDS: APIXABAN 5 MG TAB PO SCH ×2 (12:10→21:56)
[2020-08-30] MEDS: ASPIRIN 81 MG TAB CHEW PO SCH (12:10)
[2020-08-30] MEDS: PANTOPRAZOLE 40 MG TAB PO SCH (12:11)
[2020-08-30] MEDS: METOPROLOL TARTRATE 50 MG TAB PO SCH ×2 (12:11→21:57)
[2020-08-31] MEDS ORDERED: diphenhydrAMINE 50 MG/ML VIAL IV ONE (01:32)
[2020-08-31] MEDS: hydrALAZINE 25 MG TAB PO SCH (05:33)
[2020-08-31 06:00] LABS: Hematocrit 33.2 % (35.5-45.6); Hemoglobin 10.5 gm/dl (11.8-15.2); Mean Corpuscular HGB Conc 32 % (32-34); Mean Corpuscular Volume 82 fl (84-94); Platelet Count 195 K/mm3 (140-440); Red Blood Count 4.04 M/mm3 (3.65-5.03); Red Cell Distribution Width 19.5 % (13.2-15.2)
[2020-08-31 06:13] LABS: Calcium 8.1 mg/dL (8.4-10.2)
[2020-08-31] MEDS ORDERED: POTASSIUM CHLORIDE ER 20 MEQ TAB PO NR (07:42)
[2020-08-31] MEDS: SUCRALFATE 1 GM/10 ML ORAL LIQD PO SCH ×2 (08:32→12:07)
[2020-08-31] MEDS: HYDROmorphone 1 MG/1 ML INJ IV PRN (08:40)
[2020-08-31] MEDS: SODIUM BICARBONATE 650 MG TAB PO SCH (10:13)
[2020-08-31] MEDS: FUROSEMIDE 40 MG/4 ML INJ IV SCH (10:13)
[2020-08-31] MEDS: ASPIRIN 81 MG TAB CHEW PO SCH (10:13)
[2020-08-31] MEDS: APIXABAN 5 MG TAB PO SCH (10:13)
[2020-08-31] MEDS: DOCUSATE SODIUM 100 MG CAP PO SCH (10:13)
[2020-08-31] MEDS: METOPROLOL TARTRATE 50 MG TAB PO SCH (10:14)
[2020-08-31] MEDS: PANTOPRAZOLE 40 MG TAB PO SCH (10:14)
--- NOTE | 2020-08-31 10:24 | Progress Note ---
Assessment and Plan - Patient Problems (1) MU (acute kidney injury) Current Visit: Yes Status: Acute Plan to address problem: likely pre-renal azotemia in the setting of acute cardiorenal syndrome, pt with evidence of mesenteric edema/ascites, mediastinal fluid collection on CT, and hypervolemic hypernatremia. cont IV lasix 40 daily to target net negative fluid balance. Na normalized, renal function improving. reinforced Na/fluid restriction, strict I/Os. K supplementation with K Dur 40meq x 1. Avoid further nephrotoxins, NSAIDs. Will monitor lytes, renal parameters closely and make further recommendations. (2) Hyponatremia Current Visit: Yes Status: Acute Plan to address problem: hypervolemic hyponatremia, na normalized with IV lasix (3) Hyperkalemia Current Visit: Yes Status: Acute Plan to address problem: likely secondary to decreased distal tubular Na delivery, corrected with medical treatment. now with low K, cont K supplementation with K Dur (4) Chronic systolic (congestive) heart failure Current Visit: Yes Status: Acute Plan to address problem: volume control with lasix , currently on BB. Cont ISDN, hydralazine for afterload reduction. RENEA-I/ARB on hold due to decreased eGFR/hyperkalemia (5) Chronic kidney disease, stage 3b Current Visit: Yes Status: Acute Plan to address problem: likely 2/2 hypertensive nephrosclerosis/chronic cardiorenal syndrome. supportive care for MU on CKD as above. (6) Metabolic acidosis Current Visit: No Status: Acute Plan to address problem: cont sodium bicarb 650mg po bid Subjective Date of service: 08/31/20 Principal diagnosis: MU on CKD Interval history: Pt awake, alert, in no acute respiratory distress Objective - Vital Signs Vital signs: Vital Signs - 12hr 08/30/20 08/31/20 08/31/20 23:47 02:00 04:24 Temperature 99.1 F 97.6 F Pulse Rate 71 68 68 Respiratory 18 18 Rate Blood Pressure 148/87 127/70 O2 Sat by Pulse 96 96 Oximetry 08/31/20 08/31/20 08/31/20 05:33 07:40 10:14 Temperature 98.0 F Pulse Rate 70 68 68 Respiratory 18 Rate Blood Pressure 127/70 140/77 140/77 O2 Sat by Pulse 98 Oximetry - General Appearance General appearance: well-developed, well-nourished, appears stated age EENT: ATNC, PERRL, mucous membranes moist Neck: no JVD Respiratory: Present: Clear to Ascultation Cardiology: regular, S1S2 Gastrointestinal: normoactive bowel sounds Integumentary: no rash Neurologic: no focal deficit, alert and oriented x3, strength 5/5, CN 3-12 intact Psychiatric: mood/affect appropriate, cooperative - Lab 08/31/20 04:39 08/31/20 04:39 Most recent lab results Calcium 8.1 mg/dL (8.4-10.2) L 08/31/20 04:39 Magnesium 2.00 mg/dL (1.7-2.3) 08/28/20 09:38 Medications & Allergies - Medications Allergies/Adverse Reactions: Allergies No Known Allergies Allergy (Verified 08/28/20 18:31) Home Medications: Home Medications Medication Instructions Recorded Confirmed Last Taken Type Aspirin [Aspirin BABY CHEW TAB] 81 mg PO QDAY #30 tab.chew 05/01/20 08/28/20 Unknown Rx Pantoprazole Sodium 40 mg PO DAILY #30 tablet. 05/01/20 08/28/20 Unknown Rx Sodium Bicarbonate 650 mg PO BID #30 tablet 05/01/20 08/28/20 Unknown Rx amLODIPine 10 mg PO QDAY #30 tablet 05/01/20 08/28/20 Unknown Rx ISOSORBIDE MONOnitrate [Imdur ER] 30 mg PO QDAY #30 tablet 06/24/20 08/28/20 Unknown Rx Metoprolol [Lopressor TAB] 50 mg PO BID #60 tablet 06/24/20 08/28/20 Unknown Rx hydrALAZINE [Apresoline TAB] 50 mg PO Q8HR #90 tablet 06/24/20 08/28/20 Unknown Rx Albuterol Mdi (or & Nicu Only) 2 puff IH QID PRN #8.5 gram 06/27/20 08/28/20 Unknown Rx [ProAir HFA Inhaler] Omeprazole 20 mg PO QDAY #30 tab.rap 06/27/20 08/28/20 Unknown Rx Docusate Sodium [Colace] 100 mg PO BID #30 capsule 06/28/20 08/28/20 Unknown Rx Lactulose 10 gm PO DAILY PRN #60 ml 06/28/20 08/28/20 Unknown Rx Active Medications: Generic Name Dose Route Start Last Admin Trade Name Freq PRN Reason Stop Dose Admin Acetaminophen 650 mg 08/28/20 14:54 Acetaminophen 325 Mg Tab PO Q4H PRN Pain MILD(1-3)/Fever >100.5/CROOKS Apixaban 5 mg 08/29/20 12:00 08/31/20 10:13 Apixaban 5 Mg Tab PO 5 mg Q12HR SURYA Administration Protocol Aspirin 81 mg 08/29/20 10:00 08/31/20 10:13 Aspirin 81 Mg Tab Chew PO 81 mg QDAY SURYA Administration Docusate Sodium 100 mg 08/28/20 22:00 08/31/20 10:13 Docusate Sodium 100 Mg Cap PO 100 mg BID SURYA Administration Furosemide 40 mg 08/30/20 10:00 08/31/20 10:13 Furosemide 40 Mg/4 Ml Inj IV 40 mg QDAY SURYA Administration Hydralazine HCl 50 mg 08/28/20 15:00 08/31/20 05:33 Hydralazine 25 Mg Tab PO 50 mg Q8HR SURYA Administration Hydromorphone HCl 0.5 mg 08/28/20 17:11 08/31/20 08:40 Hydromorphone 1 Mg/1 Ml Inj IV 0.5 mg Q4H PRN Administration Pain , Severe (7-10) Isosorbide Mononitrate 30 mg 08/29/20 10:00 08/31/20 10:14 Isosorbide Mononitrate Er 30 Mg Tab PO 30 mg QDAY SURYA Administration Metoprolol Tartrate 50 mg 08/28/20 22:00 08/31/20 10:14 Metoprolol Tartrate 50 Mg Tab PO 50 mg BID SURYA Administration Ondansetron HCl 4 mg 08/28/20 14:54 Ondansetron 4 Mg/2 Ml Inj IV Q8H PRN Nausea And Vomiting Pantoprazole Sodium 40 mg 08/29/20 10:00 08/31/20 10:14 Pantoprazole 40 Mg Tab PO 40 mg DAILY SURYA Administration Potassium Chloride 40 meq 08/31/20 07:42 Potassium Chloride Er 20 Meq Tab PO 08/31/20 12:00 ONCE NR Sodium Bicarbonate 650 mg 08/28/20 22:00 08/31/20 10:13 Sodium Bicarbonate 650 Mg Tab PO 650 mg BID SURYA Administration Sodium Chloride 10 ml 08/28/20 22:00 08/31/20 10:15 Sodium Chloride 0.9% 10 Ml Flush Syringe IV 10 ml BID SURYA Administration Sodium Chloride 10 ml 08/28/20 14:54 Sodium Chloride 0.9% 10 Ml Flush Syringe IV PRN PRN LINE FLUSH Sucralfate 1 gm 08/28/20 19:00 08/31/20 08:32 Sucralfate 1 Gm/10 Ml Oral Liqd PO 1 gm ACHS SURYA Administration
--- NOTE | 2020-08-31 11:36 | Progress Note ---
Assessment and Plan Assessment and plan: Acute on chronic combined systolic/diastolic heart failure. Diuretics Cardiology following MU on Chronic kidney disease. Vasomotor nephropathy Chest pain. Lexiscan pending Cardiology following Pulmonary hypertension Likely from congestive heart failure History of DVT On Eliquis Hypertension Continue blood pressure medications GERD PPI History Interval history: 08/29: Echocardiogram completed May 2020 revealed severe global hypokinesis of the left ventricle with systolic function severely decreased and mild concentric left ventricular hypertrophy. Right ventricular systolic pressure 82 mmHg. EF 20 to 25%. Ischemic evaluation per cardiology. Await cardiology consultation. Continue antihypertensive medications. Patient appears to be at baseline with CKD. We will consult Dr. Rea who saw the patient on the last hospitalization. Kayexalate for hyperkalemia. 08/30: Creatinine appears to be about the same as yesterday at 2.6. Etiology of acute kidney injury is likely pre-renal azotemia/vasomotor nephropathy in the setting of acute cardiorenal syndrome, pt with evidence of mesenteric edema/ascites, mediastinal fluid collection on CT, and hypervolemic hypernatremia. Patient received Lasix, D50/insulin and Kayexalate yesterday. Hyperkalemia resolved. Follow-up urinalysis and urine electrolytes. Nephrology following. Plans for a Lexiscan stress MPI this morning. Continue Eliquis for acute BLE DVT dx approximately 2 weeks ago. Cardiology following. 08/31. Renal function continues to improve. On Eliquis for DVT. Lexiscan pending Hospitalist Physical - Physical exam Narrative exam: VITAL SIGNS: Reviewed. GENERAL: Awake HEAD: No signs of head trauma. EYES: Pupils are equal. Extraocular motions intact. MOUTH: Oropharynx is normal. NECK: No adenopathy, no JVD. CHEST: Chest with diminished breath sounds bilaterally. No wheezes, rales, or rhonchi. CARDIAC: normal S1 and S2, without murmurs, gallops, or rubs. ABDOMEN: Soft, non tender and non distended. No rebound or guarding, and no masses palpated. Bowel Sounds normal. MUSCULOSKELETAL: No edema NEUROLOGIC EXAM: Alert and oriented x3. No focal neurologic deficits SKIN: No obvious lesions - Constitutional Vitals: Temp Pulse Resp BP Pulse Ox 98.0 F 68 18 140/77 94 08/31/20 07:40 08/31/20 10:14 08/31/20 07:40 08/31/20 10:14 08/31/20 09:53 HEART Score - HEART Score EKG: Non-specific Age: 45-65 Risk factors: > 3 risk factors or hx of atherosclerotic disease Troponin: Troponin T < 0.010 ng/mL (0.00-0.029) 08/28/20 16:32 Troponin: 1-3x normal limit Results - Labs CBC & Chem 7: 08/31/20 04:39 08/31/20 04:39 Labs: Laboratory Last Values WBC 7.1 K/mm3 (4.5-11.0) 08/31/20 04:39 RBC 4.04 M/mm3 (3.65-5.03) 08/31/20 04:39 Hgb 10.5 gm/dl (11.8-15.2) L 08/31/20 04:39 Hct 33.2 % (35.5-45.6) L 08/31/20 04:39 MCV 82 fl (84-94) L 08/31/20 04:39 MCH 26 pg (28-32) L 08/31/20 04:39 MCHC 32 % (32-34) 08/31/20 04:39 RDW 19.5 % (13.2-15.2) H 08/31/20 04:39 Plt Count 195 K/mm3 (140-440) 08/31/20 04:39 Lymph % (Auto) 26.4 % (13.4-35.0) 08/30/20 05:15 Whiteside % (Auto) 13.0 % (0.0-7.3) H 08/30/20 05:15 Eos % (Auto) 1.4 % (0.0-4.3) 08/30/20 05:15 Baso % (Auto) 1.4 % (0.0-1.8) 08/30/20 05:15 Lymph # (Auto) 1.8 K/mm3 (1.2-5.4) 08/30/20 05:15 Whiteside # (Auto) 0.9 K/mm3 (0.0-0.8) H 08/30/20 05:15 Eos # (Auto) 0.1 K/mm3 (0.0-0.4) 08/30/20 05:15 Baso # (Auto) 0.1 K/mm3 (0.0-0.1) 08/30/20 05:15 Seg Neutrophils % 57.8 % (40.0-70.0) 08/30/20 05:15 Seg Neutrophils # 4.0 K/mm3 (1.8-7.7) 08/30/20 05:15 PT 20.0 Sec. (12.2-14.9) H 08/29/20 12:14 INR 1.70 (0.87-1.13) H 08/29/20 12:14 APTT 34.4 Sec. (24.2-36.6) 08/29/20 12:14 Sodium 138 mmol/L (137-145) 08/31/20 04:39 Potassium 3.3 mmol/L (3.6-5.0) L 08/31/20 04:39 Chloride 101.7 mmol/L (98-107) 08/31/20 04:39 Carbon Dioxide 26 mmol/L (22-30) 08/31/20 04:39 Anion Gap 14 mmol/L 08/31/20 04:39 BUN 27 mg/dL (9-20) H 08/31/20 04:39 Creatinine 1.9 mg/dL (0.8-1.3) H 08/31/20 04:39 Estimated GFR 44 ml/min 08/31/20 04:39 BUN/Creatinine Ratio 14 % 08/31/20 04:39 Glucose 102 mg/dL (75-100) H 08/31/20 04:39 POC Glucose 94 mg/dL (70-105) 08/31/20 08:15 Calcium 8.1 mg/dL (8.4-10.2) L 08/31/20 04:39 Magnesium 2.00 mg/dL (1.7-2.3) 08/28/20 09:38 Total Bilirubin 0.60 mg/dL (0.1-1.2) 08/28/20 09:38 Direct Bilirubin 0.3 mg/dL (0-0.2) H 08/28/20 09:38 Indirect Bilirubin 0.3 mg/dL 08/28/20 09:38 AST 45 units/L (5-40) H 08/28/20 09:38 ALT 43 units/L (7-56) 08/28/20 09:38 Alkaline Phosphatase 120 units/L (35-129) 08/28/20 09:38 Total Creatine Kinase 52 units/L (55-170) L 08/28/20 09:38 CK-MB (CK-2) 1.3 ng/mL (0.0-4.0) 08/28/20 09:38 CK-MB (CK-2) Rel Index 2.5 (0-4) 08/28/20 09:38 Troponin T < 0.010 ng/mL (0.00-0.029) 08/28/20 16:32 NT-Pro-B Natriuret Pep 6256 pg/mL (0-900) H 08/28/20 09:38 Total Protein 6.2 g/dL (6.3-8.2) L 08/28/20 09:38 Albumin 3.2 g/dL (3.9-5) L 08/28/20 09:38 Albumin/Globulin Ratio 1.1 % 08/28/20 09:38 Triglycerides 73 mg/dL (2-149) 08/28/20 09:38 Cholesterol 144 mg/dL (50-199) 08/28/20 09:38 LDL Cholesterol Direct 69 mg/dL (50-130) 08/28/20 09:38 HDL Cholesterol 52 mg/dL (40-59) 08/28/20 09:38 Cholesterol/HDL Ratio 2.76 % 08/28/20 09:38 Diego/IV: Voiding Method Toilet Active Medications - Current Medications Current Medications: Generic Name Dose Route Start Last Admin Trade Name Freq PRN Reason Stop Dose Admin Acetaminophen 650 mg 08/28/20 14:54 Acetaminophen 325 Mg Tab PO Q4H PRN Pain MILD(1-3)/Fever >100.5/CROOKS Apixaban 5 mg 08/29/20 12:00 08/31/20 10:13 Apixaban 5 Mg Tab PO 5 mg Q12HR SURYA Administration Protocol Aspirin 81 mg 08/29/20 10:00 08/31/20 10:13 Aspirin 81 Mg Tab Chew PO 81 mg QDAY SURYA Administration Docusate Sodium 100 mg 08/28/20 22:00 08/31/20 10:13 Docusate Sodium 100 Mg Cap PO 100 mg BID SURYA Administration Furosemide 40 mg 08/30/20 10:00 08/31/20 10:13 Furosemide 40 Mg/4 Ml Inj IV 40 mg QDAY SURYA Administration Hydralazine HCl 50 mg 08/28/20 15:00 08/31/20 05:33 Hydralazine 25 Mg Tab PO 50 mg Q8HR SURYA Administration Hydromorphone HCl 0.5 mg 08/28/20 17:11 08/31/20 08:40 Hydromorphone 1 Mg/1 Ml Inj IV 0.5 mg Q4H PRN Administration Pain , Severe (7-10) Isosorbide Mononitrate 30 mg 08/29/20 10:00 08/31/20 10:14 Isosorbide Mononitrate Er 30 Mg Tab PO 30 mg QDAY SURYA Administration Metoprolol Tartrate 50 mg 08/28/20 22:00 08/31/20 10:14 Metoprolol Tartrate 50 Mg Tab PO 50 mg BID SURYA Administration Ondansetron HCl 4 mg 08/28/20 14:54 Ondansetron 4 Mg/2 Ml Inj IV Q8H PRN Nausea And Vomiting Pantoprazole Sodium 40 mg 08/29/20 10:00 08/31/20 10:14 Pantoprazole 40 Mg Tab PO 40 mg DAILY SURYA Administration Potassium Chloride 40 meq 08/31/20 07:42 Potassium Chloride Er 20 Meq Tab PO 08/31/20 12:00 ONCE NR Sodium Bicarbonate 650 mg 08/28/20 22:00 08/31/20 10:13 Sodium Bicarbonate 650 Mg Tab PO 650 mg BID SURYA Administration Sodium Chloride 10 ml 08/28/20 22:00 08/31/20 10:15 Sodium Chloride 0.9% 10 Ml Flush Syringe IV 10 ml BID SURYA Administration Sodium Chloride 10 ml 08/28/20 14:54 Sodium Chloride 0.9% 10 Ml Flush Syringe IV PRN PRN LINE FLUSH Sucralfate 1 gm 08/28/20 19:00 08/31/20 08:32 Sucralfate 1 Gm/10 Ml Oral Liqd PO 1 gm ACHS SURYA Administration Nutrition/Malnutrition Assess - Dietary Evaluation Nutrition/Malnutrition Findings: Nutrition Notes Start: 08/29/20 11:17 Freq: Status: Active Protocol: Document 08/29/20 11:17 CW (Rec: 08/29/20 11:18 CW [id number]) Nutrition Notes Need for Assessment generated from: smoke jumper Initial or Follow up Brief Note Current Diagnosis Acute Kidney Injury,CKD(stage I-IV),Hypertension,Heart Failure Other Pertinent Diagnosis GERD Current Diet Cardiac Diet Subjective/Other Information RN screen for skin risk. Simba score of 20. Skin intact, PO intake adequate. Nutrition Intervention Anticipated Discharge Needs: Cardiac Diet Revisit per MD consult or patient Sign Off request: Additional Comments S/O for intact skin and adequate PO intake
--- NOTE | 2020-08-31 12:19 | Discharge Summary ---
Providers - Providers Date of Admission: 08/28/20 18:04 Date of discharge: 08/31/20 Attending physician: TREE PAULINO 08/28/20 15:03 Consult to Physician [CONS] Routine Comment: Consulting Provider: ANNA DE LEÓN Physician Instructions: Reason For Exam: chf 08/29/20 08:27 Consult to Physician [CONS] Routine Comment: Consulting Provider: ANNETTA KHAN Physician Instructions: Reason For Exam: CKD Hospitalization Condition: Stable Hospital course: 60 YO Male with CHF (EF 20%), HTN, GERD, Malnutrition, CKD, Diastolic CHF, Restrictive Cardiomyopathy, DVT currently on therapeutic anticoagulation with Xarelto presents to ED for evaluation. Patient reports "my chest hurts". Patient states that he has experienced pain in his chest over the past 1 day with persistent symptoms over the same timeframe. Patient reports the pain prevented him from going to sleep last night. Patient reports that he has chest pain but of 1 evaluation and interview the patient localizes the periumbilical region as the site of his pain. Patient states that pain is 6/10, constant, without exacerbating or alleviating factors, nonradiating. Patient transported to [facility] via private vehicle for further care and evaluation of the aforementioned symptoms. The patient was seen and evaluated in emergency department. Lab and imaging studies reviewed. The patient was found to have atypical chest pain which is referred abdominal pain, Diastolic CHF. The patient was placed in observation status and admitted to Telemetry for further evaluation. Pt denies f ever, chills, CP, Palpitations, NVD, Trauma, productive cough, recent ill contacts, or known exposure to COVID 19. Prior admission on 06/22/20 reviewed. All medication listed at time of admission has been reconciled. Advanced care planning conducted in ED. Hospital course 08/29: Echocardiogram completed May 2020 revealed severe global hypokinesis of the left ventricle with systolic function severely decreased and mild concentric left ventricular hypertrophy. Right ventricular systolic pressure 82 mmHg. EF 20 to 25%. Ischemic evaluation per cardiology. Await cardiology consultation. Continue antihypertensive medications. Patient appears to be at baseline with CKD. We will consult Dr. Khan who saw the patient on the last hospitalization. Kayexalate for hyperkalemia. 08/30: Creatinine appears to be about the same as yesterday at 2.6. Etiology of acute kidney injury is likely pre-renal azotemia/vasomotor nephropathy in the setting of acute cardiorenal syndrome, pt with evidence of mesenteric edema/ascites, mediastinal fluid collection on CT, and hypervolemic hypernatremia. Patient received Lasix, D50/insulin and Kayexalate yesterday. Hyperkalemia resolved. Follow-up urinalysis and urine electrolytes. Nephrology following. Plans for a Lexiscan stress MPI this morning. Continue Eliquis for acute BLE DVT dx approximately 2 weeks ago. Cardiology following. 08/31. Renal function continues to improve. On Eliquis for DVT. Patient stress test negative for any reversible ischemia. Patient has been cleared from cardiology standpoint for discharge. He will follow-up with patient observation assistant in 1 to 2 weeks Disposition: DC-01 TO HOME OR SELFCARE Final Discharge Diagnosis (Prints w/discharge instructions): Congestive heart failure Time spent for discharge: 40 minutes Core Measure Documentation - Palliative Care Palliative Care/ Comfort Measures: Not Applicable - Core Measures Any of the following diagnoses?: none Exam - Physical Exam Narrative exam: VITAL SIGNS: Reviewed. GENERAL: Awake HEAD: No signs of head trauma. EYES: Pupils are equal. Extraocular motions intact. MOUTH: Oropharynx is normal. NECK: No adenopathy, no JVD. CHEST: Chest with diminished breath sounds bilaterally. No wheezes, rales, or rhonchi. CARDIAC: normal S1 and S2, without murmurs, gallops, or rubs. ABDOMEN: Soft, non tender and non distended. No rebound or guarding, and no masses palpated. Bowel Sounds normal. MUSCULOSKELETAL: No edema NEUROLOGIC EXAM: Alert and oriented x3. No focal neurologic deficits SKIN: No obvious lesions - Constitutional Vitals: Temp Pulse Resp BP Pulse Ox 98.0 F 66 18 140/77 94 08/31/20 07:40 08/31/20 11:52 08/31/20 07:40 08/31/20 10:14 08/31/20 09:53 Plan Diet: low fat, low cholesterol, low salt Additional Instructions: Continue home medications. Follow-up with cardiology in the office [facility] - [facility]-5 Days FERMIN ALVARADO MD [Staff Physician] - 7 Days Prescriptions: hydrALAZINE [Apresoline TAB] 50 mg PO Q8HR #90 tablet Aspirin [Aspirin BABY CHEW TAB] 81 mg PO QDAY #30 tab.chew Apixaban [Eliquis] 5 mg PO Q12HR #60 tablet ISOSORBIDE MONOnitrate [Imdur ER] 30 mg PO QDAY #30 tablet Furosemide [Lasix TAB] 40 mg PO QDAY #30 tablet Metoprolol [Lopressor TAB] 50 mg PO BID #60 tablet
--- NOTE | 2020-08-31 12:46 | Electrocardiograph Report ---
[facility] Test Date: 2020-08-28 Test Time: 08:25:53 Pat Name: SERGIO HINTON Department: Room: A466 1 Gender: M [employer] Supervisor: RADHA : [id number] Requested By: BOBO BENNETT Order Number: [id number] Reading MD: Janis Ureña Measurements Intervals [place] Rate: 72 P: 81 [place]: 150 QRS: 73 QRSD: 94 T: 196 QT: 444 QTc: 487 Interpretive Statements Sinus rhythm LVH with secondary repolarization abnormality No previous ECG available for comparison Electronically Signed On 08-31-2020 12:46:31 EDT by Janis Ureña
--- NOTE | 2020-08-31 13:03 | Progress Note ---
Assessment and Plan Twelve-lead ECG reviewed: Sinus rhythm no ST segment elevation Lexiscan MPI is negative for reversible ischemia. Continue Eliquis for acute BLE DVT dx approximately 2 weeks ago. Agree with IV Lasix daily with strict I/Os as per Christiano recs. Volume optimization per nephrology in setting of acute kidney injury. No ACEI/ARB in setting of acute kidney injury. Avoid nephrotoxic agents. Continue BB. Will consider addition of ACEi/ARB/ARNi when renal fxn is stable. Plan for outpatient work-up of valvulopathy when stable. Patient is currently in stable cardiac status. Nothing further to add from cardiac standpoint. Will follow on as-needed basis. Patient should follow-up with Dr Diego in our [place] office on 09/20/2020 at 3 PM. #[id number] Pt seen in conjunction with Dr Tan, who agrees with the assessment and plan of care. 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 Plan to address problem: EF 20-25% on echo 05/2020 (3) Ascites Current Visit: Yes Status: Acute (4) Acute kidney injury superimposed on CKD Current Visit: Yes Status: Acute (5) Hyperkalemia Current Visit: Yes Status: Acute (6) COPD (chronic obstructive pulmonary disease) Current Visit: Yes Status: Chronic (7) Severe pulmonary hypertension Current Visit: Yes Status: Chronic (8) Severe mitral regurgitation Current Visit: Yes Status: Chronic (9) DVT, bilateral lower limbs Current Visit: Yes Status: Acute (10) Atypical chest pain Current Visit: Yes Status: Acute (11) Elevated troponin Current Visit: Yes Status: Acute (12) Essential hypertension Current Visit: Yes Status: Chronic (13) GERD (gastroesophageal reflux disease) Current Visit: Yes Status: Chronic (14) History of tobacco abuse Current Visit: Yes Status: Chronic (15) History of cocaine abuse Current Visit: Yes Status: Resolved (16) Chronic pain Current Visit: Yes Status: Chronic (17) Medical non-compliance Current Visit: Yes Status: Chronic Subjective Date of service: 08/31/20 Principal diagnosis: MU on CKD Interval history: Patient resting comfortably in bed. No chest pain or shortness of breath overnight. Telemetry reviewed: Sinus rhythm 70. No events Objective Last Vital Signs Temp 98.0 F 08/31/20 07:40 Pulse 66 08/31/20 11:52 Resp 18 08/31/20 07:40 BP 140/77 08/31/20 10:14 Pulse Ox 94 08/31/20 09:53 - Physical Examination General: No Apparent Distress HEENT: Positive: EOMI, Normocephaly, Mucus Membranes Moist Neck: Positive: neck supple, trachea midline. Negative: JVD/HJR Cardiac: Positive: Reg Rate and Rhythm, S1/S2 Lungs: Positive: clear to auscultation, Normal Breath Sounds Neuro: Positive: Grossly Intact Abdomen: Positive: Soft, Active Bowel Sounds, Firm. Negative: Tender Skin: Negative: Rash Musculoskeletal: No Fluid Collection, Normal Range of Motion Extremities: Present: upper extr. pulses, lower extr. pulses. Absent: edema - Labs and Meds CBC 08/31/20 Range/Units 04:39 WBC 7.1 (4.5-11.0) K/mm3 RBC 4.04 (3.65-5.03) M/mm3 Hgb 10.5 L (11.8-15.2) gm/dl Hct 33.2 L (35.5-45.6) % Plt Count 195 (140-440) K/mm3 Comprehensive Metabolic Panel 08/31/20 Range/Units 04:39 Sodium 138 (137-145) mmol/L Potassium 3.3 L (3.6-5.0) mmol/L Chloride 101.7 (98-107) mmol/L Carbon Dioxide 26 (22-30) mmol/L BUN 27 H (9-20) mg/dL Creatinine 1.9 H (0.8-1.3) mg/dL Glucose 102 H (75-100) mg/dL Calcium 8.1 L (8.4-10.2) mg/dL - Imaging and Cardiology EKG: report reviewed, image reviewed Echo: report reviewed (06/27/2020 - EF 20-25%, mild-mod AR, severe MR, mod TR, RVSP 82mmHg) - Telemetry EKG Rhythm: Sinus Rhythm - EKG Sinus rhythms and dysrhythmias: sinus rhythm Chamber hypertrophy or enlargement: left ventricular hypertro
[2020-08-31 13:58] VITALS: BP 128/70
--- NOTE | 2020-08-31 18:09 | Nuclear Medicine Report ---
APPROVED REPORT Exam: Nuclear Stress Test Indication: Chest pain BMI: 0 Stress Test Details Stress Test: Pharmacologic stress testing performed using 0.4 mg of regadenoson per 5 mL given IV over 10 seconds. HR Resting HR: 64 bpmMax Heart Rate (APMHR): 160 bpm Max HR Achieved: 84 bpmTarget HR (85% APMHR): 136 bpm % of APMHR: 52 Recovery HR: 66 bpm HR response to stress: Normal HR response to stress BP Resting BP: 139/84 mmHg Max BP: 150/84 mmHg Recovery BP: 139/81 mmHg BP response to stress: Normal blood pressure response to stress. ECG Resting ECG: Sinus Rhythm Stress ECG: Sinus Rhythm ST Change: Nondiagnostic resting ST abnormalities Arrhythmia: None Recovery ECG: Sinus Rhythm Recovery ST Change: Nondiagnostic resting ST abnormalities Recovery Arrhythmia: VPC Clinical Reason for Termination: Completed protocol Resting EKG showed S.R with significant LVH by voltage criteria and assosciated repolarisation abnormalities noted. Stress ECG Conclusion Because of LVH and repolarization abnormalities,EKG is non diagnostic. NM EXAM: Myocardial Perfusion REST/STRESS Imaging Protocol: Rest Tc-99m/Stress Tc-99m 1 day Resting Data Rest SPECT myocardial perfusion imaging was performed in supine position 45 minutes following the intravenous injection of 10 mCi of Tc-99m Myoview. Time of rest injection: 0900 Pharmacologic Stress Pharmacologic stress test was performed by injecting Regadenoson 0.4 mg IV push followed by the intravenous injection of 28 mCi of Tc-99m Myoview. Time of stress injection: 1004 Gated Stress SPECT was performed 30 minutes after stress injection. The images were gated to evaluate regional wall motion and calculate left ventricular ejection fraction. Study Quality Study: excellent Lung Uptake: Normal Study Data Post stress, the left ventricular ejection was 25%.. TID = 1.07. Perfusion Wall Motion Markedly dilated LV with diffuse hypokinesis,calculated LVEF ,post vasodilation was 25%. Nuclear Conclusion ECG Findings: non-diagnostic Clinical Findings: negative for ischemia Nuclear Findings: negative for ischemia Left Ventricular Function: abnormal Risk Study: high Post stress, the left ventricular ejection was 25%.. Conclusion Because of LVH and repolarization abnormalities,EKG is non diagnostic.
--- NOTE | 2020-09-02 11:37 | Treadmill Report ---
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
--- NOTE | 2020-09-02 11:49 | Electrocardiograph Report ---
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 : 1960 Requested By: KIANA ANDERS Order Number: [id number] Reading MD: Clarence Tan Measurements Intervals [place] Rate: 61 P: 78 AK: 143 QRS: 87 QRSD: 99 T: 265 QT: 575 QTc: 582 Interpretive Statements Sinus rhythm Ventricular premature complex Left atrial enlargement LVH with secondary repolarization abnormality ST depr, consider ischemia, inferior leads Prolonged QT interval Compared to ECG 08/28/2020 08:25:53 Ventricular premature complex(es) now present Atrial abnormality now present Possible ischemia now present Prolonged QT interval now present Electronically Signed On 09-02-2020 11:48:48 EDT by Clarence Tan
--- NOTE | 2020-09-02 17:20 | Electrocardiograph Report ---
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
== END 2020-08-31 15:13 | disposition home health service (06) | DRG 291 ==
LOC: ED 08:15 → 4A 18:04
PROVIDERS: ADMIT Internal Medicine; ATTEND Internal Medicine
DX: I13.0 Hypertensive heart and chronic kidney disease with heart failure and stage 1 through stage 4 chronic kidney disease, or unspecified chronic kidney disease (principal); N17.0 Acute kidney failure with tubular necrosis; I50.43 Acute on chronic combined systolic (congestive) and diastolic (congestive) heart failure; I82.403 Acute embolism and thrombosis of unspecified deep veins of lower extremity, bilateral; E87.1 Hypo-osmolality and hyponatremia; I42.5 Other restrictive cardiomyopathy; R18.8 Other ascites; R07.89 Other chest pain; E87.5 Hyperkalemia; J44.9 Chronic obstructive pulmonary disease, unspecified; I27.20 Pulmonary hypertension, unspecified; I34.0 Nonrheumatic mitral (valve) insufficiency; R77.8 Other specified abnormalities of plasma proteins; K21.9 Gastro-esophageal reflux disease without esophagitis; G89.29 Other chronic pain; N18.32 Chronic kidney disease, stage 3b; E87.2 Acidosis; Z79.01 Long term (current) use of anticoagulants; Z79.82 Long term (current) use of aspirin; Z79.899 Other long term (current) drug therapy; Z91.14 Patient's other noncompliance with medication regimen; Z87.891 Personal history of nicotine dependence; Z82.49 Family history of ischemic heart disease and other diseases of the circulatory system
CPT/HCPCS: 36415; 71250; 74176; 78452; 80048; 80061; 80076; 82550; 82553; 82565; 82962; 83735; 83880; 84484; 85025; 85027; 85610; 85730; 93005; 93017; 96365; 96375; G0378; A9502; J1170; J1200; J1940; J2270; J2405; J2785

== ENCOUNTER 2021-08-06 17:26 | Observation (INO) | payer MEDICAID ==
--- NOTE | 2021-08-06 18:50 | Emergency Department Report ---
ED Shortness of Breath HPI - General Chief Complaint: Dyspnea/Respdistress Stated Complaint: SOB/BLOOD CLOTS Time Seen by Provider: 08/06/21 18:02 Source: patient Mode of arrival: Ambulatory Limitations: No Limitations - History of Present Illness Initial Comments: 61-year-old male who presents with shortness of breath that started 3 days ago progressively getting worse. Patient has history of DVT twice on the left lower leg and once on the right lower leg and currently taking Eliquis. Patient mentioned that he just got back from long travel from [place] that is about [address] Patient denies any cough, fever or chills. Patient also reports fall this morning with left shoulder pain and right elbow discomfort. Patient denies any other modifying or positive factors. - Related Data Previous Rx's Medication Instructions Recorded Last Taken Type Albuterol Mdi (or & Nicu Only) 2 puff IH QID PRN #8.5 gram 08/07/21 Unknown Rx [ProAir HFA Inhaler] Apixaban [Eliquis] 5 mg PO Q12HR 30 Days #60 tablet 08/07/21 Unknown Rx Aspirin [Aspirin BABY CHEW TAB] 81 mg PO QDAY 30 Days #30 tab.chew 08/07/21 Unknown Rx AtorvaSTATin [Lipitor] 40 mg PO QHS 30 Days #30 tablet 08/07/21 Unknown Rx Furosemide [Lasix TAB] 40 mg PO QDAY #30 tablet 08/07/21 Unknown Rx ISOSORBIDE MONOnitrate [Imdur ER] 30 mg PO QDAY #30 tablet 08/07/21 Unknown Rx Metoprolol [Lopressor TAB] 50 mg PO BID #60 tablet 08/07/21 Unknown Rx Omeprazole 20 mg PO QDAY #30 tab.rap.dr 08/07/21 Unknown Rx amLODIPine 10 mg PO QDAY 30 Days #30 tablet 08/07/21 Unknown Rx Allergies Allergy/AdvReac Type Severity Reaction Status Date / Time No Known Allergies Allergy Verified 08/06/21 18:20 ED Review of Systems ROS: Stated complaint: SOB/BLOOD CLOTS Other details as noted in HPI Comment: All other systems reviewed and negative Respiratory: shortness of breath, SOB with exertion Cardiovascular: dyspnea on exertion. denies: chest pain, palpitations Musculoskeletal: arthralgia, myalgia, other (Left shoulder pain with right elbow pain s/p fall) ED Past Medical Hx - Past Medical History Previous Medical History?: Yes Hx Hypertension: Yes Hx Heart Attack/AMI: No Hx Congestive Heart Failure: Yes Hx Diabetes: No Hx Deep Vein Thrombosis: No Hx Pulmonary Embolism: No Hx GERD: No Hx Liver Disease: No Hx Renal Disease: No Hx Sickle Cell Disease: No Hx Arthritis: No Hx Headaches / Migraines: No Hx Seizures: No Hx Kidney Stones: No Hx Asthma: No Hx COPD: No Hx Tuberculosis: No Hx Dementia: No Hx HIV: No Additional medical history: Pneumonia - Surgical History Past Surgical History?: No Hx Coronary Stent: No Hx Pacemaker: No Hx Internal Defibrillator: No - Social History Smoking Status: Never Smoker - Medications Home Medications: Home Medications Medication Instructions Recorded Confirmed Last Taken Type Albuterol Mdi (or & Nicu Only) 2 puff IH QID PRN #8.5 gram 08/07/21 Unknown Rx [ProAir HFA Inhaler] Apixaban [Eliquis] 5 mg PO Q12HR 30 Days #60 tablet 08/07/21 Unknown Rx Aspirin [Aspirin BABY CHEW TAB] 81 mg PO QDAY 30 Days #30 tab.chew 08/07/21 Unknown Rx AtorvaSTATin [Lipitor] 40 mg PO QHS 30 Days #30 tablet 08/07/21 Unknown Rx Furosemide [Lasix TAB] 40 mg PO QDAY #30 tablet 08/07/21 Unknown Rx ISOSORBIDE MONOnitrate [Imdur ER] 30 mg PO QDAY #30 tablet 08/07/21 Unknown Rx Metoprolol [Lopressor TAB] 50 mg PO BID #60 tablet 08/07/21 Unknown Rx Omeprazole 20 mg PO QDAY #30 tab.rap.dr 08/07/21 Unknown Rx amLODIPine 10 mg PO QDAY 30 Days #30 tablet 08/07/21 Unknown Rx ED Physical Exam - General Limitations: No Limitations General appearance: alert, in no apparent distress - Head Head exam: Present: atraumatic, normocephalic, normal inspection - Eye Eye exam: Present: normal appearance Pupils: Present: normal accommodation - ENT ENT exam: Present: normal exam, normal orophraynx, mucous membranes moist - Neck Neck exam: Present: normal inspection - Respiratory Respiratory exam: Present: normal lung sounds bilaterally. Absent: respiratory distress, wheezes - Cardiovascular Cardiovascular Exam: Present: regular rate, normal rhythm, normal heart sounds - GI/Abdominal GI/Abdominal exam: Present: soft, normal bowel sounds. Absent: distended, tenderness, guarding - Extremities Exam Extremities exam: Present: normal inspection, full ROM. Absent: tenderness - Back Exam Back exam: Present: normal inspection, full ROM. Absent: tenderness, CVA tenderness (R), CVA tenderness (L) - Neurological Exam Neurological exam: Present: alert, oriented X3, motor sensory deficit - Psychiatric Psychiatric exam: Present: normal affect, normal mood - Skin Skin exam: Present: warm, rash ED Course Vital Signs 08/06/21 08/06/21 08/06/21 17:55 18:08 18:15 Temperature 98.2 F Pulse Rate 89 Pulse Rate [ Radial] Respiratory 18 16 Rate Blood Pressure 145/88 136/85 Blood Pressure 132/85 [Right] O2 Sat by Pulse 99 99 Oximetry 08/06/21 08/06/21 08/06/21 18:30 18:31 18:39 Temperature 98.6 F Pulse Rate 92 H 92 H 84 Pulse Rate [ Radial] Respiratory 20 28 H 18 Rate Blood Pressure 136/85 156/104 Blood Pressure 154/100 [Right] O2 Sat by Pulse 98 99 100 Oximetry 08/06/21 08/06/21 08/06/21 18:40 18:50 19:00 Temperature Pulse Rate 92 H 77 92 H Pulse Rate [ Radial] Respiratory 23 18 19 Rate Blood Pressure 156/104 159/100 140/85 Blood Pressure [Right] O2 Sat by Pulse 98 100 98 Oximetry 08/06/21 08/06/21 08/06/21 19:10 19:20 19:30 Temperature Pulse Rate 82 92 H 85 Pulse Rate [ Radial] Respiratory 24 11 L 17 Rate Blood Pressure 140/85 140/85 140/85 Blood Pressure [Right] O2 Sat by Pulse 99 99 99 Oximetry 08/06/21 08/06/21 08/06/21 19:40 19:50 20:00 Temperature Pulse Rate 85 88 84 Pulse Rate [ Radial] Respiratory 16 19 17 Rate Blood Pressure 140/85 140/85 140/85 Blood Pressure [Right] O2 Sat by Pulse 98 98 97 Oximetry 08/06/21 08/06/21 08/06/21 20:10 20:21 20:31 Temperature Pulse Rate 81 86 90 Pulse Rate [ Radial] Respiratory 16 17 14 Rate Blood Pressure 140/85 140/85 140/85 Blood Pressure [Right] O2 Sat by Pulse 99 98 98 Oximetry 08/06/21 08/06/21 08/06/21 20:41 20:51 21:01 Temperature Pulse Rate 84 84 97 H Pulse Rate [ Radial] Respiratory 15 14 19 Rate Blood Pressure 140/85 140/85 140/85 Blood Pressure [Right] O2 Sat by Pulse 98 99 97 Oximetry 08/06/21 08/06/21 08/06/21 21:11 21:21 21:31 Temperature Pulse Rate 93 H 93 H 91 H Pulse Rate [ Radial] Respiratory 15 25 H 13 Rate Blood Pressure 140/85 140/85 140/85 Blood Pressure [Right] O2 Sat by Pulse 97 98 96 Oximetry 08/06/21 08/06/21 08/06/21 21:41 21:51 22:00 Temperature Pulse Rate 77 99 H 75 Pulse Rate [ Radial] Respiratory 20 27 H 20 Rate Blood Pressure 140/85 140/85 140/85 Blood Pressure [Right] O2 Sat by Pulse 97 98 100 Oximetry 08/06/21 08/06/21 08/06/21 22:10 22:20 22:30 Temperature Pulse Rate 93 H 91 H 94 H Pulse Rate [ Radial] Respiratory 13 21 19 Rate Blood Pressure 140/85 140/85 140/85 Blood Pressure [Right] O2 Sat by Pulse 97 98 100 Oximetry 08/06/21 08/06/21 08/06/21 22:40 22:50 23:00 Temperature Pulse Rate 78 78 92 H Pulse Rate [ Radial] Respiratory 25 H 25 H 29 H Rate Blood Pressure 140/85 140/85 168/100 Blood Pressure [Right] O2 Sat by Pulse 98 100 100 Oximetry 08/06/21 08/06/21 08/06/21 23:10 23:13 23:20 Temperature Pulse Rate 86 91 H Pulse Rate [ Radial] Respiratory 14 24 Rate Blood Pressure 168/100 168/100 170/109 Blood Pressure [Right] O2 Sat by Pulse 98 97 Oximetry 08/06/21 08/06/21 08/06/21 23:30 23:40 23:50 Temperature Pulse Rate 77 85 89 Pulse Rate [ Radial] Respiratory 10 L 14 21 Rate Blood Pressure 168/102 153/94 163/95 Blood Pressure [Right] O2 Sat by Pulse 95 97 99 Oximetry 08/07/21 08/07/21 08/07/21 00:00 00:10 00:20 Temperature Pulse Rate 91 H 78 79 Pulse Rate [ Radial] Respiratory 16 15 16 Rate Blood Pressure 172/102 165/97 164/94 Blood Pressure [Right] O2 Sat by Pulse 97 99 99 Oximetry 08/07/21 08/07/21 08/07/21 00:30 00:40 00:50 Temperature Pulse Rate 100 H 88 91 H Pulse Rate [ Radial] Respiratory 17 10 L 13 Rate Blood Pressure 168/93 154/81 153/87 Blood Pressure [Right] O2 Sat by Pulse 98 98 94 Oximetry 08/07/21 08/07/21 08/07/21 01:00 01:10 01:20 Temperature Pulse Rate 97 H 105 H 95 H Pulse Rate [ Radial] Respiratory 15 15 15 Rate Blood Pressure 162/91 165/91 141/82 Blood Pressure [Right] O2 Sat by Pulse 93 93 98 Oximetry 08/07/21 08/07/21 08/07/21 01:30 01:40 01:50 Temperature Pulse Rate 93 H 94 H 95 H Pulse Rate [ Radial] Respiratory 15 15 15 Rate Blood Pressure 130/70 129/72 124/71 Blood Pressure [Right] O2 Sat by Pulse 98 98 98 Oximetry 08/07/21 08/07/21 08/07/21 02:00 02:10 02:15 Temperature Pulse Rate 95 H 96 H Pulse Rate [ Radial] Respiratory 15 14 Rate Blood Pressure 130/71 125/69 Blood Pressure [Right] O2 Sat by Pulse 98 98 97 Oximetry 08/07/21 08/07/21 08/07/21 02:20 03:55 07:44 Temperature 98.2 F 98.8 F Pulse Rate 97 H 91 H 98 H Pulse Rate [ Radial] Respiratory 23 18 18 Rate Blood Pressure 131/73 130/71 136/85 Blood Pressure [Right] O2 Sat by Pulse 96 93 97 Oximetry 08/07/21 08/07/21 08/07/21 10:06 10:15 12:50 Temperature Pulse Rate 91 H Pulse Rate [ 90 Radial] Respiratory 18 Rate Blood Pressure 136/85 Blood Pressure [Right] O2 Sat by Pulse 96 Oximetry 08/07/21 08/07/21 08/07/21 14:06 15:46 16:20 Temperature 98.6 F Pulse Rate 94 H 80 Pulse Rate [ Radial] Respiratory 18 18 18 Rate Blood Pressure 148/78 92/53 Blood Pressure [Right] O2 Sat by Pulse 100 97 Oximetry 08/07/21 08/07/21 18:06 18:07 Temperature Pulse Rate Pulse Rate [ Radial] Respiratory 18 18 Rate Blood Pressure 102/63 107/60 Blood Pressure [Right] O2 Sat by Pulse Oximetry - Reevaluation(s) Reevaluation #1: 08/06/21 18:50 Here with shortness of breath with history of multiple DVT currently on Eliquis--but considering that patient just returned from 14 [address] road trip that preceded the shortness of breath is worrisome for PE so we will go ahead and check D-dimer among other routine labs including coagulation profile, CBC, CMP, for any infectious process or electrolyte abnormality. Reevaluation #2: 08/06/21 20:37 Noted with elevated D-dimer at 241--so we will go ahead and get a CTA of the chest to rule out PE. Noted with slightly elevated creatinine at 1.8 so I discussed with speech therapist technician to have patient hydrated with ivf ns 1L bolus x 1-- pt will be taken for the procedure in about 1 hour. 08/06/21 20:46 08/06/21 20:46 08/06/21 20:51 Given morphine for pain Reevaluation #3: 08/06/21 21:[address] Taylor while waiting for other labs and CTA to rule out PE-- ED Medical Decision Making - Lab Data Result diagrams: 08/06/21 18:57 08/06/21 18:57 - Differential Diagnosis Pulmonary embolism, NH, pneumonia, pneumothorax. Critical care attestation.: If time is entered above; I have spent that time in minutes in the direct care of this critically ill patient, excluding procedure time. ED Disposition Clinical Impression: Dyspnea Qualifiers: Dyspnea type: shortness of breath Qualified Code(s): R06.02 - Shortness of breath Disposition: 01 HOME / SELF CARE / HOMELESS Is pt being admited?: No Does the pt Need Aspirin: No Condition: Stable
--- NOTE | 2021-08-06 19:21 | XRay Report ---
CHEST 1 VIEW 08/06/2021 7:02 PM INDICATION / CLINICAL INFORMATION: dyspnea. COMPARISON: 06/28/2020 FINDINGS: SUPPORT DEVICES: None. HEART / MEDIASTINUM: Stable cardiomegaly. LUNGS / PLEURA: No significant pulmonary or pleural abnormality. No pneumothorax. ADDITIONAL FINDINGS: No significant additional findings. IMPRESSION: 1. Stable cardiomegaly. Lungs are clear. Signer Name: John Reveles MD Signed: 08/06/2021 7:16 PM Workstation Name: [id number]
[2021-08-06 19:24] LABS: Basophils # (Auto) 0.1 K/mm3 (0.0-0.1); Basophils % (Auto) 0.7 % (0.0-1.8); Eosinophils # (Auto) 0.1 K/mm3 (0.0-0.4); Eosinophils % (Auto) 1.6 % (0.0-4.3); Hematocrit 46.6 % (35.5-45.6); Hemoglobin 15.1 gm/dl (11.8-15.2); Lymphocytes # (Auto) 1.6 K/mm3 (1.2-5.4); Lymphocytes % (Auto) 21.8 % (13.4-35.0); Mean Corpuscular HGB Conc 32 % (32-34); Mean Corpuscular Volume 93 fl (84-94); Monocytes # (Auto) 0.8 K/mm3 (0.0-0.8); Monocytes % (Auto) 10.7 % (0.0-7.3); Platelet Count 164 K/mm3 (140-440); Red Blood Count 5.02 M/mm3 (3.65-5.03); Red Cell Distribution Width 16.2 % (13.2-15.2)
[2021-08-06 19:29] LABS: INR 1.07 (0.87-1.13)
[2021-08-06 19:30] LABS: Partial Thromboplastin Time 33.6 Sec. (24.2-36.6)
[2021-08-06 19:36] LABS: Albumin 4.2 g/dL (3.9-5); Calcium 9.4 mg/dL (8.4-10.2)
[2021-08-06] MEDS ORDERED: MORPHINE 2 MG/1 ML INJ IV ONE (20:50)
--- NOTE | 2021-08-06 21:23 | Event Note ---
ADDENDUM: Patient care transferred to [place] from Dr. Galvan @ 9 pm. Patient here with complaints of CP, radiating to L shoulder, associated with SOB. Patient has a hx of DVT and is on anticoagulants. Also reports recent 14 hour travel. Laboratory Tests 08/06/21 08/06/21 08/06/21 18:57 18:57 18:57 WBC 7.6 RBC 5.02 Hgb 15.1 Hct 46.6 H MCV 93 MCH 30 MCHC 32 RDW 16.2 H Plt Count 164 Lymph % (Auto) 21.8 Stephenson % (Auto) 10.7 H Eos % (Auto) 1.6 Baso % (Auto) 0.7 Lymph # (Auto) 1.6 Stephenson # (Auto) 0.8 Eos # (Auto) 0.1 Baso # (Auto) 0.1 Seg Neutrophils % 65.2 Seg Neutrophils # 4.9 PT 15.1 H INR 1.07 APTT 33.6 D-Dimer Sodium 135 L Potassium 4.4 Chloride 103.1 Carbon Dioxide 16 L Anion Gap 20 BUN 12 Creatinine 1.8 H Estimated GFR 47 BUN/Creatinine Ratio 7 Glucose 93 Calcium 9.4 Total Bilirubin 0.50 AST 17 ALT 8 Alkaline Phosphatase 87 Troponin T 0.014 NT-Pro-B Natriuret Pep 770.6 Total Protein 6.6 Albumin 4.2 Albumin/Globulin Ratio 1.8 08/06/21 20:17 WBC RBC Hgb Hct MCV MCH MCHC RDW Plt Count Lymph % (Auto) Stephen[place] % (Auto) Eos % (Auto) Baso % (Auto) Lymph # (Auto) Stephenson # (Auto) Eos # (Auto) Baso # (Auto) Seg Neutrophils % Seg Neutrophils # PT INR APTT D-Dimer 241.42 H Sodium Potassium Chloride Carbon Dioxide Anion Gap BUN Creatinine Estimated GFR BUN/Creatinine Ratio Glucose Calcium Total Bilirubin AST ALT Alkaline Phosphatase Troponin T NT-Pro-B Natriuret Pep Total Protein Albumin Albumin/Globulin Ratio CXR: no acute cardiopulmonary process XR L shoulder: no fracture or dislocation (wet read by Dr. Taylor) XR: L elbow: no clear cut fracture or subluxation (wet read by Dr. Taylor) EKG @ 21:54: HR 72, SR, nml NH, narrow QRS, LVH, no significant ST changes in contiguous leads CTA chest ordered by Dr. Galvan pending. Hospitalist to follow Patient had no access after being in [place] x 4 hours UI DEVELOPER WITH ANGULAR JS of this MD. RN stated multiple people had tried. Decision to place central line made. US used to check neck veins and patients IJs are directly in front of the cardotids on their whole length in neck, hence IJ approach not advised. Decision made to use femoral approach. Procedure note: Procedure: central line placement Consent: verbal; obtained from patient Time out done Location: R femoral Method: triple lumen central line placed using Seldinger technique; blood draws freely through all 3 ports that also flush freely; antiseptic patch placed; central line sutured in place Complications: none; neurovascularly intact; no signs of bleeding Patient tolerated procedure well Performed by Dr. Taylor diff dz: need to r/o ACS, PE. Pneumothoirax, pneumonia ruled out. Impression: 1. Chest pain Disposition: Condition: stable Patient admitted to tele obs to Dr. Peguero. Sign out was given by me to the admitting physician.
--- NOTE | 2021-08-06 21:32 | XRay Report ---
LEFT SHOULDER 3 VIEW(S) INDICATION / CLINICAL INFORMATION: pain s/p fall COMPARISON: None available. FINDINGS: BONES / JOINT(S): No acute fracture or subluxation. Mild DJD of the acromioclavicular joint. SOFT TISSUES: No significant abnormality. ADDITIONAL FINDINGS: None. Signer Name: John Reveles MD Signed: 08/06/2021 9:28 PM Workstation Name: [id number]
--- NOTE | 2021-08-06 21:33 | XRay Report ---
RIGHT ELBOW 2 VIEW(S) INDICATION / CLINICAL INFORMATION: fall with pain COMPARISON: None available. FINDINGS: BONES / JOINT(S): No acute fracture or subluxation. No significant arthritis. No joint effusion. Ther e is a degenerative enthesophyte at the olecranon process at the triceps tendon insertion. SOFT TISSUES: No significant abnormality. ADDITIONAL FINDINGS: None. Signer Name: John Reveles MD Signed: 08/06/2021 9:29 PM Workstation Name: [id number]
[2021-08-06] MEDS ORDERED: MORPHINE 4 MG/1 ML INJ IV PRN (21:47)
[2021-08-06] MEDS ORDERED: traMADol 50 MG TAB PO PRN (21:47)
[2021-08-06] MEDS ORDERED: NITROGLYCERIN 0.4 MG TAB SUBL SL PRN (21:47)
[2021-08-06] MEDS ORDERED: ACETAMINOPHEN 325 MG TAB PO PRN (21:47)
[2021-08-06] MEDS ORDERED: LACTULOSE ENEMA 1000 ML PR PRN (21:50)
--- NOTE | 2021-08-06 21:56 | History and Physical Report ---
History of Present Illness Date of examination: 08/06/21 Date of admission: 08/06/21 Chief complaint: Shortness of breath Chest pain History of present illness: 61 years old male with history of hypertension, heart failure, renal failure, pneumonia, history of DVT on the left lower leg and right lower leg on Eliquis was brought to the hospital because of shortness of breath that started 3 days ago progressively getting worse. Patient mentioned that he just got back from long travel from [place] that is about [address] Patient denies any cough, fever or chills. Patient also reports fall this morning with left shoulder pain and right elbow discomfort. Patient denies any other modifying or positive factors. In the emergency room patient is found to have elevated D-dimer at 241--so we will go ahead and get a CTA of the chest to rule out PE. Noted with slightly elevated creatinine at 1.8 so I discussed with aviation survival technician to have patient hydrated with ivf ns 1L bolus x 1-- pt will be taken for the procedure in about 1 hour. Past History Past Medical History: DVT, heart failure, hypertension, renal failure, other (Pneumonia) Past Surgical History: No surgical history Social history: other (No smoking) Family history: hypertension Medications and Allergies Allergies Allergy/AdvReac Type Severity Reaction Status Date / Time No Known Allergies Allergy Verified 08/06/21 18:20 Home Medications Medication Instructions Recorded Confirmed Last Taken Type Sodium Bicarbonate 650 mg PO BID #30 tablet 05/01/20 08/28/20 Unknown Rx amLODIPine 10 mg PO QDAY #30 tablet 05/01/20 08/28/20 Unknown Rx Albuterol Mdi (or & Nicu Only) 2 puff IH QID PRN #8.5 gram 06/27/20 08/28/20 Unknown Rx [ProAir HFA Inhaler] Omeprazole 20 mg PO QDAY #30 tab.rap.dr 06/27/20 08/28/20 Unknown Rx Docusate Sodium [Colace CAP] 100 mg PO BID #30 capsule 06/28/20 08/28/20 Unknown Rx Lactulose 10 gm PO DAILY PRN #60 ml 06/28/20 08/28/20 Unknown Rx Apixaban [Eliquis] 5 mg PO Q12HR #60 tablet 08/31/20 Unknown Rx Aspirin [Aspirin BABY CHEW TAB] 81 mg PO QDAY #30 tab.chew 08/31/20 Unknown Rx Furosemide [Lasix TAB] 40 mg PO QDAY #30 tablet 08/31/20 Unknown Rx ISOSORBIDE MONOnitrate [Imdur ER] 30 mg PO QDAY #30 tablet 08/31/20 Unknown Rx Metoprolol [Lopressor TAB] 50 mg PO BID #60 tablet 08/31/20 Unknown Rx hydrALAZINE [Apresoline TAB] 50 mg PO Q8HR #90 tablet 08/31/20 Unknown Rx Review of Systems All systems: negative Cardiovascular: chest pain, shortness of breath, dyspnea on exertion Respiratory: shortness of breath, dyspnea on exertion Exam - Constitutional Vitals: Temp Pulse Resp BP Pulse Ox 98.6 F 84 18 154/100 100 08/06/21 18:39 08/06/21 18:39 08/06/21 18:39 08/06/21 18:39 08/06/21 18:39 General appearance: Present: no acute distress, well-nourished - EENT Eyes: Present: PERRL ENT: hearing intact, clear oral mucosa - Neck Neck: Present: supple, normal ROM - Respiratory Respiratory effort: normal Respiratory: bilateral: diminished - Cardiovascular Heart Sounds: Present: S1 & S2. Absent: rub, click - Extremities Extremities: pulses symmetrical, No edema Peripheral Pulses: within normal limits - Abdominal General gastrointestinal: Present: soft, non-tender, non-distended, normal bowel sounds Male genitourinary: Present: normal - Integumentary Integumentary: Present: clear, warm, dry - Musculoskeletal Musculoskeletal: gait normal, strength equal bilaterally - Psychiatric Psychiatric: appropriate mood/affect, intact judgment & insight - Neurologic Neurologic: CNII-XII intact, moves all extremities HEART Score - HEART Score Troponin: Troponin T 0.014 ng/mL (0.00-0.029) 08/06/21 18:57 Results - Labs CBC & Chem 7: 08/06/21 18:57 08/06/21 18:57 Labs: Laboratory Last Values WBC 7.6 K/mm3 (4.5-11.0) 08/06/21 18:57 RBC 5.02 M/mm3 (3.65-5.03) 08/06/21 18:57 Hgb 15.1 gm/dl (11.8-15.2) 08/06/21 18:57 Hct 46.6 % (35.5-45.6) H 08/06/21 18:57 MCV 93 fl (84-94) 08/06/21 18:57 MCH 30 pg (28-32) 08/06/21 18:57 MCHC 32 % (32-34) 08/06/21 18:57 RDW 16.2 % (13.2-15.2) H 08/06/21 18:57 Plt Count 164 K/mm3 (140-440) 08/06/21 18:57 Lymph % (Auto) 21.8 % (13.4-35.0) 08/06/21 18:57 [place] % (Auto) 10.7 % (0.0-7.3) H 08/06/21 18:57 Eos % (Auto) 1.6 % (0.0-4.3) 08/06/21 18:57 Baso % (Auto) 0.7 % (0.0-1.8) 08/06/21 18:57 Lymph # (Auto) 1.6 K/mm3 (1.2-5.4) 08/06/21 18:57 [place] # (Auto) 0.8 K/mm3 (0.0-0.8) 08/06/21 18:57 Eos # (Auto) 0.1 K/mm3 (0.0-0.4) 08/06/21 18:57 Baso # (Auto) 0.1 K/mm3 (0.0-0.1) 08/06/21 18:57 Seg Neutrophils % 65.2 % (40.0-70.0) 08/06/21 18:57 Seg Neutrophils # 4.9 K/mm3 (1.8-7.7) 08/06/21 18:57 PT 15.1 Sec. (12.2-14.9) H 08/06/21 18:57 INR 1.07 (0.87-1.13) 08/06/21 18:57 APTT 33.6 Sec. (24.2-36.6) 08/06/21 18:57 D-Dimer 241.42 ng/mlDDU (0-234) H 08/06/21 20:17 Sodium 135 mmol/L (137-145) L 08/06/21 18:57 Potassium 4.4 mmol/L (3.6-5.0) 08/06/21 18:57 Chloride 103.1 mmol/L (98-107) 08/06/21 18:57 Carbon Dioxide 16 mmol/L (22-30) L 08/06/21 18:57 Anion Gap 20 mmol/L 08/06/21 18:57 BUN 12 mg/dL (9-20) 08/06/21 18:57 Creatinine 1.8 mg/dL (0.8-1.3) H 08/06/21 18:57 Estimated GFR 47 ml/min 08/06/21 18:57 BUN/Creatinine Ratio 7 % 08/06/21 18:57 Glucose 93 mg/dL (75-100) 08/06/21 18:57 Calcium 9.4 mg/dL (8.4-10.2) 08/06/21 18:57 Total Bilirubin 0.50 mg/dL (0.1-1.2) 08/06/21 18:57 AST 17 units/L (5-40) 08/06/21 18:57 ALT 8 units/L (7-56) 08/06/21 18:57 Alkaline Phosphatase 87 units/L (35-129) 08/06/21 18:57 Troponin T 0.014 ng/mL (0.00-0.029) 08/06/21 18:57 NT-Pro-B Natriuret Pep 770.6 pg/mL (0-900) 08/06/21 18:57 Total Protein 6.6 g/dL (6.3-8.2) 08/06/21 18:57 Albumin 4.2 g/dL (3.9-5) 08/06/21 18:57 Albumin/Globulin Ratio 1.8 % 08/06/21 18:57 - Imaging and Cardiology Chest x-ray: report reviewed Assessment and Plan VTE prophylaxis?: Chemical Plan of care discussed with patient/family: Yes - Patient Problems (1) Dyspnea Current Visit: Yes Status: Acute Qualifiers: Dyspnea type: shortness of breath Qualified Code(s): R06.02 - Shortness of breath; R06.00 - Dyspnea, unspecified; R06.01 - Orthopnea Plan to address problem: Admit the patient to the medical telemetry. Oxygen per nasal cannula residential collections pulmonate. DuoNeb by nebulizer every 4 hours. Albuterol by nebulizer every 4 hours as needed. We will do a CT of the chest rule out PE. Patient is already on Eliquis 5 mg p.o. twice a day. We will monitor the patient closely (2) ACS (acute coronary syndrome) Current Visit: Yes Status: Acute Plan to address problem: Aspirin 81 mg p.o. daily. Lipitor 40 mg p.o. daily. Eliquis 5 mg p.o. twice da felicia. Serial cardiac enzymes. Echocardiogram. Consult cardiology if needed (3) DVT, bilateral lower limbs Current Visit: No Status: Acute Plan to address problem: Patient is on Eliquis 5 mg p.o. twice a day. We will do a CTA of the chest rule out PE (4) Acute on chronic HFrEF (heart failure with reduced ejection fraction) Current Visit: No Status: Acute Plan to address problem: Stable. We will continue the home medication. Consult cardiology if needed (5) COPD (chronic obstructive pulmonary disease) Current Visit: No Status: Chronic Plan to address problem: Oxygen via nasal cannula 3 L/min. DuoNeb by nebulizer every 4 hours. Albuterol via nebulizer every 4 hours as needed (6) GERD (gastroesophageal reflux disease) Current Visit: No Status: Acute Qualifiers: Plan to address problem: Pepcid 20 mg p.o. twice daily. We will monitor the patient closely (7) Essential hypertension Current Visit: No Status: Chronic Plan to address problem: Amlodipine 10 mg p.o. daily. Lopressor 50 mg p.o. twice daily. Hydralazine 50 mg p.o. every 8 hours (8) DVT prophylaxis Current Visit: No Status: Acute Plan to address problem: Eliquis 5 mg p.o. twice daily for DVT prophylaxis. Pepcid 20 mg p.o. twice daily for GI prophylaxis. Patient is a full code
[2021-08-06] MEDS ORDERED: LACTULOSE 20 GM/30 ML ORAL LIQD PO PRN (21:58)
[2021-08-06] MEDS ORDERED: NON-FORMULARY EACH (Apixaban 5 MG Tablet) PO SCH (22:00)
[2021-08-06] MEDS: SODIUM CHLORIDE 0.9% 1000 ML 1,000 ML IV ONE (23:04)
[2021-08-06] MEDS ORDERED: NITROGLYCERIN 0.4 MG TAB SUBL SL STA (23:21)
[2021-08-07] MEDS: DOCUSATE SODIUM 100 MG CAP PO SCH ×3 (00:33→10:06)
[2021-08-07] MEDS: hydrALAZINE 25 MG TAB PO SCH ×4 (00:33→14:43)
[2021-08-07] MEDS: APIXABAN 5 MG TAB PO SCH ×3 (00:33→10:06)
[2021-08-07] MEDS: MORPHINE 4 MG/1 ML INJ IV ONE ×2 (00:34→03:02)
[2021-08-07] MEDS: ONDANSETRON 4 MG/2 ML INJ IV ONE ×2 (00:34→03:07)
[2021-08-07] MEDS: SODIUM BICARBONATE 650 MG TAB PO SCH ×3 (00:34→10:06)
[2021-08-07] MEDS: SODIUM CHLORIDE 0.9% 1000 ML 1,000 ML IV ONE (03:05)
--- NOTE | 2021-08-07 08:09 | Progress Note ---
Assessment and Plan Assessment and plan: History of present illness: 61 years old male with history of hypertension, heart failure, renal failure, pneumonia, history of DVT on the left lower leg and right lower leg on Eliquis was brought to the hospital because of shortness of breath that started 3 days ago progressively getting worse. Patient mentioned that he just got back from long travel from [place] that is about [address] Patient denies any cough, fever or chills. Patient also reports fall this morning with left shoulder pain and right elbow discomfort. Patient denies any other modifying or positive factors. In the emergency room patient is found to have elevated D-dimer at 241--so we will go ahead and get a CTA of the chest to rule out PE. Noted with slightly elevated creatinine at 1.8 so I discussed with electrician technician to have patient hydrated with ivf ns 1L bolus x 1-- pt will be taken for the procedure in about 1 hour. Admitted to tele bed for shortness of breath with concern for PE. Hospital Course: 08/07: Assessment and Plan: (1) Dyspnea Current Visit: Yes Status: Acute Qualifiers: Dyspnea type: shortness of breath Qualified Code(s): R06.02 - Shortness of breath; R06.00 - Dyspnea, unspecified; R06.01 - Orthopnea Plan to address problem: Admit the patient to the medical telemetry. Oxygen per nasal cannula platform material handling supervisor pulmonate. DuoNeb by nebulizer every 4 hours. Albuterol by nebulizer every 4 hours as needed. We will do a CT of the chest rule out PE. Patient is already on Eliquis 5 mg p.o. twice a day. We will monitor the patient closely (2) ACS (acute coronary syndrome) Current Visit: Yes Status: Acute Plan to address problem: Aspirin 81 mg p.o. daily. Lipitor 40 mg p.o. daily. Eliquis 5 mg p.o. twice daily. Serial cardiac enzymes. Echocardiogram. Consult cardiology if needed (3) DVT, bilateral lower limbs Current Visit: No Status: Acute Plan to address problem: Patient is on Eliquis 5 mg p.o. twice a day. We will do a CTA of the chest rule out PE (4) Acute on chronic HFrEF (heart failure with reduced ejection fraction) Current Visit: No Status: Acute Plan to address problem: Stable. We will continue the home medication. Consult cardiology if needed (5) COPD (chronic obstructive pulmonary disease) Current Visit: No Status: Chronic Plan to address problem: Oxygen via nasal cannula 3 L/min. DuoNeb by nebulizer every 4 hours. Albuterol via nebulizer every 4 hours as needed (6) GERD (gastroesophageal reflux disease) Current Visit: No Status: Acute Qualifiers: Plan to address problem: Pepcid 20 mg p.o. twice daily. We will monitor the patient closely (7) Essential hypertension Current Visit: No Status: Chronic Plan to address problem: Amlodipine 10 mg p.o. daily. Lopressor 50 mg p.o. twice daily. Hydralazine 50 mg p.o. every 8 hours (8) DVT prophylaxis Current Visit: No Status: Acute Plan to address problem: Eliquis 5 mg p.o. twice daily for DVT prophylaxis. Pepcid 20 mg p.o. twice daily for GI prophylaxis. Patient is a full code Hospitalist Physical - Physical exam Narrative exam: Physical Exam: VITAL SIGNS: Reviewed. GENERAL: The patient appears normally developed, Vital signs as documented. HEAD: No signs of head trauma. EYES: Pupils are equal. Extraocular motions intact. EARS: Hearing grossly intact. MOUTH: Oropharynx is normal. NECK: No adenopathy, no JVD. CHEST: Chest with clear breath sounds bilaterally. No wheezes, rales, or rhonchi. CARDIAC: Regular rate and rhythm. S1 and S2, without murmurs, gallops, or rubs. VASCULAR: No Edema. Peripheral pulses normal and equal in all extremities. ABDOMEN: Soft, non tender and non distended. No rebound or guarding, and no masses palpated. Bowel Sounds normal. MUSCULOSKELETAL: Good range of motion of all major joints. Extremities without clubbing, cyanosis or edema. NEUROLOGIC EXAM: Alert and oriented x 4. no focal sensory or strength deficits. PSYCHIATRIC: Mood normal. SKIN: detail exam as documented in skin assessment - Constitutional Vitals: Temp Pulse Resp BP Pulse Ox 98.6 F 84 18 168/100 97 08/06/21 18:39 08/06/21 18:39 08/06/21 18:39 08/06/21 23:13 08/07/21 02:15 General appearance: Present: no acute distress, well-nourished HEART Score - HEART Score Troponin: Troponin T 0.015 ng/mL (0.00-0.029) 08/07/21 05:12 Results - Labs CBC & Chem 7: 08/06/21 18:57 08/06/21 18:57 Labs: Laboratory Last Values WBC 7.6 K/mm3 (4.5-11.0) 08/06/21 18:57 RBC 5.02 M/mm3 (3.65-5.03) 08/06/21 18:57 Hgb 15.1 gm/dl (11.8-15.2) 08/06/21 18:57 Hct 46.6 % (35.5-45.6) H 08/06/21 18:57 MCV 93 fl (84-94) 08/06/21 18:57 MCH 30 pg (28-32) 08/06/21 18:57 MCHC 32 % (32-34) 08/06/21 18:57 RDW 16.2 % (13.2-15.2) H 08/06/21 18:57 Plt Count 164 K/mm3 (140-440) 08/06/21 18:57 Lymph % (Auto) 21.8 % (13.4-35.0) 08/06/21 18:57 [place] % (Auto) 10.7 % (0.0-7.3) H 08/06/21 18:57 Eos % (Auto) 1.6 % (0.0-4.3) 08/06/21 18:57 Baso % (Auto) 0.7 % (0.0-1.8) 08/06/21 18:57 Lymph # (Auto) 1.6 K/mm3 (1.2-5.4) 08/06/21 18:57 [place] # (Auto) 0.8 K/mm3 (0.0-0.8) 08/06/21 18:57 Eos # (Auto) 0.1 K/mm3 (0.0-0.4) 08/06/21 18:57 Baso # (Auto) 0.1 K/mm3 (0.0-0.1) 08/06/21 18:57 Seg Neutrophils % 65.2 % (40.0-70.0) 08/06/21 18:57 Seg Neutrophils # 4.9 K/mm3 (1.8-7.7) 08/06/21 18:57 PT 15.1 Sec. (12.2-14.9) H 08/06/21 18:57 INR 1.07 (0.87-1.13) 08/06/21 18:57 APTT 33.6 Sec. (24.2-36.6) 08/06/21 18:57 D-Dimer 241.42 ng/mlDDU (0-234) H 08/06/21 20:17 Sodium 135 mmol/L (137-145) L 08/06/21 18:57 Potassium 4.4 mmol/L (3.6-5.0) 08/06/21 18:57 Chloride 103.1 mmol/L (98-107) 08/06/21 18:57 Carbon Dioxide 16 mmol/L (22-30) L 08/06/21 18:57 Anion Gap 20 mmol/L 08/06/21 18:57 BUN 12 mg/dL (9-20) 08/06/21 18:57 Creatinine 1.8 mg/dL (0.8-1.3) H 08/06/21 18:57 Estimated GFR 47 ml/min 08/06/21 18:57 BUN/Creatinine Ratio 7 % 08/06/21 18:57 Glucose 93 mg/dL (75-100) 08/06/21 18:57 Calcium 9.4 mg/dL (8.4-10.2) 08/06/21 18:57 Total Bilirubin 0.50 mg/dL (0.1-1.2) 08/06/21 18:57 AST 17 units/L (5-40) 08/06/21 18:57 ALT 8 units/L (7-56) 08/06/21 18:57 Alkaline Phosphatase 87 units/L (35-129) 08/06/21 18:57 Troponin T 0.015 ng/mL (0.00-0.029) 08/07/21 05:12 NT-Pro-B Natriuret Pep 770.6 pg/mL (0-900) 08/06/21 18:57 Total Protein 6.6 g/dL (6.3-8.2) 08/06/21 18:57 Albumin 4.2 g/dL (3.9-5) 08/06/21 18:57 Albumin/Globulin Ratio 1.8 % 08/06/21 18:57 Diego/IV: Voiding Method Toilet Active Medications - Current Medications Current Medications: Generic Name Dose Route Start Last Admin Trade Name Freq PRN Reason Stop Dose Admin Acetaminophen 650 mg 08/06/21 21:47 Acetaminophen 325 Mg Tab PO Q6H PRN Pain, Mild (1-3) Amlodipine Besylate 10 mg 08/07/21 10:00 Amlodipine 10 Mg Tab PO QDAY [facility] Apixaban 5 mg 08/06/21 22:00 08/07/21 03:03 Apixaban 5 Mg Tab PO Not Given Q12HR [facility] Aspirin 81 mg 08/07/21 10:00 Aspirin 81 Mg Tab Chew PO QDAY [facility] Atorvastatin Calcium 40 mg 08/06/21 22:00 08/07/21 03:01 Atorvastatin 40 Mg Tab PO Not Given QHS [facility] Docusate Sodium 100 mg 08/06/21 22:00 08/07/21 03:04 Docusate Sodium 100 Mg Cap PO Not Given BID [facility] Hydralazine HCl 50 mg 08/06/21 22:00 08/07/21 05:40 Hydralazine 25 Mg Tab PO 50 mg Q8HR [facility] Administration Isosorbide Mononitrate 30 mg 08/07/21 10:00 Isosorbide Mononitrate Er 30 Mg Tab PO QDAY [facility] Lactulose 10 gm 08/06/21 21:58 Lactulose 20 Gm/30 Ml Oral Liqd PO DAILY PRN Constipation Morphine Sulfate 2 mg 08/06/21 21:47 Morphine 4 Mg/1 Ml Inj IV Q5MIN PRN Chest Pain unrelieved by NTG Nitroglycerin 0.4 mg 08/06/21 21:47 08/06/21 23:13 Nitroglycerin 0.4 Mg Tab Subl SL 0.4 mg Q5M PRN Administration Chest Pain Pantoprazole Sodium 40 mg 08/07/21 10:00 Pantoprazole 40 Mg Tab PO QDAY [facility] Sodium Bicarbonate 650 mg 08/06/21 22:00 08/07/21 03:02 Sodium Bicarbonate 650 Mg Tab PO Not Given BID [facility] Sodium Chloride 10 ml 08/06/21 21:47 Sodium Chloride 0.9% 10 Ml Flush Syringe IV PRN PRN LINE FLUSH Tramadol HCl 50 mg 08/06/21 21:47 Tramadol 50 Mg Tab PO Q6H PRN Pain, Moderate (4-6)
--- NOTE | 2021-08-07 08:41 | Cat Scan Report ---
CTA chest with contrast INDICATION : chest pain with elevated D-dimer. TECHNIQUE: Axial imaging performed through the chest, with contrast bolus timing set to maximize opa cification of the pulmonary arteries. 3-plane MIP reformatted images were obtained. All CT scans at this location are performed using CT dose reduction for ALARA by means of automated exposure control. 80 mL of intravenous contrast administered. COMPARISON: CT chest from 08/28/2020 FINDINGS: Bolus/PTE: Contrast bolus timing is adequate. No filling defect is present to suggest PTE. There is subclavian vein stenosis with several collateral vessels. The stenotic segment measures approximatel y 1.5 cm as measured on image 52 of series 4. Mediastinum: Heart and great vessels appear normal. No pathologic mediastinal adenopathy. Lungs: There is an area of probable scarring/atelectasis in the right lung base with otherwise clear lungs. Upper abdomen: Limited imaging of the upper abdomen shows nothing acute. Bones: Degenerative changes in the spine with nothing acute. IMPRESSION: 1. Negative for PTE. 2. Probable scarring versus atelectasis in the right lung base as outlined above although this does a ppear slightly nodular. Follow-up CT within 3 months recommended to ensure resolution or assess stabi lity. 4. Focal chronic subclavian venous stenosis on the right with several well-developed chest wall colla teral vessels. Signer Name: Heath Mae MD Signed: 08/07/2021 8:37 AM Workstation Name: [id number]
[2021-08-07] MEDS ORDERED: ASPIRIN 81 MG TAB CHEW PO SCH (10:00)
[2021-08-07] MEDS ORDERED: PANTOPRAZOLE 40 MG TAB PO SCH (10:00)
[2021-08-07] MEDS ORDERED: amLODIPine 10 MG TAB PO SCH (10:00)
--- NOTE | 2021-08-07 12:12 | Discharge Summary ---
Providers - Providers Date of Admission: 08/06/21 21:47 Date of discharge: 08/07/21 Attending physician: JAMEY BINGHAM MD 08/06/21 Consult to Cardiac Rehabilitation [CONS] Routine Reason For Exam: Phase I Primary care physician: GINA LOMELI Hospitalization Reason for admission: short of breath Condition: Stable Hospital course: History of present illness: 61 years old male with history of hypertension, heart failure, renal failure, pneumonia, history of DVT on the left lower leg and right lower leg on Eliquis was brought to the hospital because of shortness of breath that started 3 days ago progressively getting worse. Patient mentioned that he just got back from long travel from [place] that is about [address] Patient denies any cough, fever or chills. Patient also reports fall this morning with left shoulder pain and right elbow discomfort. Patient denies any other modifying or positive factors. In the emergency room patient is found to have elevated D-dimer at 241--so we will go ahead and get a CTA of the chest to rule out PE. Noted with slightly elevated creatinine at 1.8 so I discussed with nursery technician to have patient hydrated with ivf ns 1L bolus x 1-- pt will be taken for the procedure in about 1 hour. Admitted to tele bed for shortness of breath with concern for PE. Hospital Course: 08/07: Stable for discharge. Patient is out of home medications. will send new prescriptions for meds. CTA chest negative for PE. Discharge to home. Assessment and Plan: (1) Dyspnea Current Visit: Yes Status: Acute Qualifiers: Dyspnea type: shortness of breath Qualified Code(s): R06.02 - Shortness of breath; R06.00 - Dyspnea, unspecified; R06.01 - Orthopnea Plan to address problem: Admit the patient to the medical telemetry. 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 DuoNeb by nebulizer every 4 hours. Albuterol by nebulizer every 4 hours as needed. We will do a CT of the chest rule out PE. Patient is already on Eliquis 5 mg p.o. twice a day. We will monitor the patient closely (2) ACS (acute coronary syndrome) Current Visit: Yes Status: Acute Plan to address problem: Aspirin 81 mg p.o. daily. Lipitor 40 mg p.o. daily. Eliquis 5 mg p.o. twice daily. Serial cardiac enzymes. Echocardiogram. Consult cardiology if needed (3) DVT, bilateral lower limbs Current Visit: No Status: Acute Plan to address problem: Patient is on Eliquis 5 mg p.o. twice a day. We will do a CTA of the chest rule out PE (4) Acute on chronic HFrEF (heart failure with reduced ejection fraction) Current Visit: No Status: Acute Plan to address problem: Stable. We will continue the home medication. Consult cardiology if needed (5) COPD (chronic obstructive pulmonary disease) Current Visit: No Status: Chronic Plan to address problem: Oxygen via nasal cannula 3 L/min. DuoNeb by nebulizer every 4 hours. Albuterol via nebulizer every 4 hours as needed (6) GERD (gastroesophageal reflux disease) Current Visit: No Status: Acute Qualifiers: Plan to address problem: Pepcid 20 mg p.o. twice daily. We will monitor the patient closely (7) Essential hypertension Current Visit: No Status: Chronic Plan to address problem: Amlodipine 10 mg p.o. daily. Lopressor 50 mg p.o. twice daily. Hydralazine 50 mg p.o. every 8 hours (8) DVT prophylaxis Current Visit: No Status: Acute Plan to address problem: Eliquis 5 mg p.o. twice daily for DVT prophylaxis. Pepcid 20 mg p.o. twice daily for GI prophylaxis. Patient is a full code Disposition: 01 HOME / SELF CARE / HOMELESS Final Discharge Diagnosis (Prints w/discharge instructions): dyspnea Time spent for discharge: 25 Core Measure Documentation - Palliative Care Palliative Care/ Comfort Measures: Not Applicable - Core Measures Any of the following diagnoses?: none Exam - Physical Exam Narrative exam: Physical Exam: VITAL SIGNS: Reviewed. GENERAL: The patient appears normally developed, Vital signs as documented. HEAD: No signs of head trauma. EYES: Pupils are equal. Extraocular motions intact. EARS: Hearing grossly intact. MOUTH: Oropharynx is normal. NECK: No adenopathy, no JVD. CHEST: Chest with clear breath sounds bilaterally. No wheezes, rales, or rhonchi. CARDIAC: Regular rate and rhythm. S1 and S2, without murmurs, gallops, or rubs. VASCULAR: No Edema. Peripheral pulses normal and equal in all extremities. ABDOMEN: Soft, non tender and non distended. No rebound or guarding, and no masses palpated. Bowel Sounds normal. MUSCULOSKELETAL: Good range of motion of all major joints. Extremities without clubbing, cyanosis or edema. NEUROLOGIC EXAM: Alert and oriented x 4. no focal sensory or strength deficits. PSYCHIATRIC: Mood normal. SKIN: detail exam as documented in skin assessment - Constitutional Vitals: Temp Pulse Resp BP Pulse Ox 98.8 F 98 H 18 136/85 97 08/07/21 07:44 08/07/21 07:44 08/07/21 07:44 08/07/21 10:06 08/07/21 07:44 Plan Follow up with: GINA LOMELI MD [Primary Care Provider] - 7 Days Prescriptions: AtorvaSTATin [Lipitor] 40 mg PO QHS 30 Days #30 tablet amLODIPine 10 mg PO QDAY 30 Days #30 tablet Aspirin [Aspirin BABY CHEW TAB] 81 mg PO QDAY 30 Days #30 tab.chew Apixaban [Eliquis] 5 mg PO Q12HR 30 Days #60 tablet ISOSORBIDE MONOnitrate [Imdur ER] 30 mg PO QDAY #30 tablet Furosemide [Lasix TAB] 40 mg PO QDAY #30 tablet Metoprolol [Lopressor TAB] 50 mg PO BID #60 tablet Omeprazole 20 mg PO QDAY #30 tab.rap. Albuterol i (or & Nicu Only) [ProAir HFA Inhaler] 2 puff IH QID PRN #8.5 gram PRN Reason: Shortness Of Breath
--- NOTE | 2021-08-07 16:22 | Electrocardiograph Report ---
[facility] Test Date: 2021-08-06 Test Time: 21:54:46 Pat Name: SERGIO HINTON Department: Room: A454 1 Gender: M Professional Architect: CIRA : [id number] Requested By: MEHREEN CASTELLANOS Order Number: [id number] Reading MD: Clarence Tan Measurements Intervals [place] Rate: 75 P: 77 WV: 132 QRS: 73 QRSD: 93 T: 185 QT: 428 QTc: 477 Interpretive Statements Sinus rhythm Biatrial enlargement Left ventricular hypertrophy Abnormal T, probable ischemia, lateral leads ST elevation, consider anterior injury Compared to ECG 08/31/2020 10:32:17 No significant change noted. Electronically Signed On 08-07-2021 16:21:18 EDT by Clarence Tan
--- NOTE | 2021-08-07 16:27 | Electrocardiograph Report ---
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 Atrial premature complex(es) now present Electronically Signed On 08-07-2021 16:26:47 EDT by Clarence Tan
[2021-08-07 18:18] VITALS: BP 107/60
== END 2021-08-07 18:33 | disposition home or self-care (01) ==
LOC: ED 17:26 → INTOOBSV 21:47 → 4A 21:47
PROVIDERS: ADMIT Hospitalist; ATTEND Internal Medicine
DX: I24.9 Acute ischemic heart disease, unspecified (principal); I11.0 Hypertensive heart disease with heart failure; I50.23 Acute on chronic systolic (congestive) heart failure; I82.409 Acute embolism and thrombosis of unspecified deep veins of unspecified lower extremity; R06.00 Dyspnea, unspecified; I82.403 Acute embolism and thrombosis of unspecified deep veins of lower extremity, bilateral; J44.9 Chronic obstructive pulmonary disease, unspecified; K21.9 Gastro-esophageal reflux disease without esophagitis; N19 Unspecified kidney failure; Z86.718 Personal history of other venous thrombosis and embolism; Z79.899 Other long term (current) drug therapy; Z98.890 Other specified postprocedural states; Z79.82 Long term (current) use of aspirin
CPT/HCPCS: 36415; 36556; 71045; 71275; 73030; 73070; 80053; 83880; 84484; 85025; 85379; 85610; 85730; 93005; 96361; 96374; 96375; 99285; C8929; G0378; J2270; J2405; J7030; Q9967; 93306; Q0162

== ENCOUNTER 2022-01-08 03:15 | Inpatient (IN) | payer MEDICAID ==
--- NOTE | 2022-01-08 05:20 | XRay Report ---
CHEST 2 VIEWS INDICATION / CLINICAL INFORMATION: MAN and cough. COMPARISON: Chest x-ray 08/06/2021 FINDINGS: SUPPORT DEVICES: None. HEART / MEDIASTINUM: Borderline to mild cardiomegaly slightly increased since comparison. LUNGS / PLEURA: No significant pulmonary or pleural abnormality. No pneumothorax. BONES: No significant osseous abnormality. ADDITIONAL FINDINGS: No significant additional findings. IMPRESSION: 1. Mild interval worsening of cardiomegaly is suggested. 2. No active cardiopulmonary process. Signer Name: Doug Brown II, MD Signed: 01/08/2022 5:15 AM Workstation Name: [id number]
[2022-01-08 09:48] LABS: Basophils % (Auto) 0.3 % (0.0-1.8); Eosinophils % (Auto) 0.1 % (0.0-4.3); Hematocrit 46.6 % (35.5-45.6); Lymphocytes # (Auto) 1.9 K/mm3 (1.2-5.4); Lymphocytes % (Auto) 14.4 % (13.4-35.0); Mean Corpuscular HGB Conc 32 % (32-34); Mean Corpuscular Volume 92 fl (84-94); Monocytes # (Auto) 1.2 K/mm3 (0.0-0.8); Monocytes % (Auto) 9.5 % (0.0-7.3); Platelet Count 163 K/mm3 (140-440); Red Blood Count 5.07 M/mm3 (3.65-5.03); Red Cell Distribution Width 17.7 % (13.2-15.2)
[2022-01-08 10:03] LABS: Albumin 4.5 g/dL (3.9-5); Calcium 9.3 mg/dL (8.4-10.2)
[2022-01-08 10:20] LABS: Chol/HDL Ratio 2.62 %
--- NOTE | 2022-01-08 11:48 | Emergency Department Report ---
HPI - General Chief Complaint: Upper Respiratory Infection Time Seen by Provider: 01/08/22 11:29 - HPI HPI: Please note that this patient had been registered for 8 hours prior to the start of this provider shift time per review of the patient's electronic health record. Patient had serum labs ordered 1001: lab documents critical troponin level was reported to RN in Fast [employer] Patient is a 61-year-old male with multiple medical comorbidities who presents for evaluation of shortness of breath. Patient repeatedly denies chest pain to this provider. He states several hours ago he was smoking crack cocaine as well as drinking alcohol and subsequently developed shortness of breath and difficulty breathing. He states he is noncompliant with his regular medications states "sometimes I take them sometimes I do not." He denies any pain or swelling to his legs. He complains of a intermittent dry cough. No lightheadedness or dizziness. No nausea vomiting fevers or chills. No headaches. No difficulty talking walking or word finding. Pain currently 0 out of 10. ED Past Medical Hx - Past Medical History Previous Medical History?: Yes Hx Hypertension: Yes Hx Heart Attack/AMI: No Hx Congestive Heart Failure: Yes Hx Diabetes: No Hx Deep Vein Thrombosis: No Hx Pulmonary Embolism: No Hx GERD: No Hx Liver Disease: No Hx Renal Disease: No Hx Sickle Cell Disease: No Hx Arthritis: No Hx Headaches / Migraines: No Hx Seizures: No Hx Kidney Stones: No Hx Asthma: No Hx COPD: No Hx Tuberculosis: No Hx Dementia: No Hx HIV: No Additional medical history: Pneumonia - Surgical History Past Surgical History?: No Hx Coronary Stent: No Hx Pacemaker: No Hx Internal Defibrillator: No - Social History Smoking Status: Current Every Day Smoker Substance Use Type: Cocaine - Medications Home Medications: Home Medications Medication Instructions Recorded Confirmed Last Taken Type Albuterol Mdi (or & Nicu Only) 2 puff IH QID PRN #8.5 gram 08/07/21 Unknown Rx [ProAir HFA Inhaler] Apixaban [Eliquis] 5 mg PO Q12HR 30 Days #60 tablet 08/07/21 Unknown Rx Aspirin [Aspirin BABY CHEW TAB] 81 mg PO QDAY 30 Days #30 tab.chew 08/07/21 Unknown Rx AtorvaSTATin [Lipitor] 40 mg PO QHS 30 Days #30 tablet 08/07/21 Unknown Rx Furosemide [Lasix TAB] 40 mg PO QDAY #30 tablet 08/07/21 Unknown Rx ISOSORBIDE MONOnitrate [Imdur ER] 30 mg PO QDAY #30 tablet 08/07/21 Unknown Rx Metoprolol [Lopressor TAB] 50 mg PO BID #60 tablet 08/07/21 Unknown Rx Omeprazole 20 mg PO QDAY #30 tab. 08/07/21 Unknown Rx amLODIPine 10 mg PO QDAY 30 Days #30 tablet 08/07/21 Unknown Rx ED Review of Systems ROS: Stated complaint: DIFF BREATHING Other details as noted in HPI Physical Exam - Physical Exam Vital Signs: Vital Signs 01/08/22 03:15 Temperature 98.8 F Pulse Rate 100 H Respiratory 18 Rate Blood Pressure 159/100 O2 Sat by Pulse 100 Oximetry General: Gen: pt is well appearing, no acute distress HEENT: Normocephalic atraumatic pupils equally round and reactive to light extraocular muscles intact sclera anicteric Neck: Full range of motion, no midline spinal tenderness palpation, no JVD, no carotid bruits, no nuchal rigidity CVS: S1-S2 regular rate and rhythm with no gallops rubs or murmurs, chest wall nontender Pulmonary: Diffuse end expiratory wheezes in all lung field Abdomen: Soft nondistended nontender no guarding or rebound tenderness, no palpable deformities or step-offs, normal active bowel sounds, no hepatosplenomegaly, no pulsatile masses : Deferred Extremities: No cyanosis no clubbing no edema, intact distal peripheral pulses, Integumentary: Skin normal, no petechia no purpura no abscess no lacerations no evidence of trauma no evidence of infection Neuro: Patient is awake alert and oriented to person place time situation, mentating well, cranial nerves II through XII intact, no focal neurodeficits, sensation grossly tact Psych: Calm cooperative, mood affect normal ED Course Vital Signs 01/08/22 03:15 Temperature 98.8 F Pulse Rate 100 H Respiratory 18 Rate Blood Pressure 159/100 O2 Sat by Pulse 100 Oximetry - Consultations Consultation #1: 01/08/22 12:08pm; Return call received from on-call lithographic press feeder, . Case was reviewed with him. Expressed concern that the patient has hyperacute T waves in his anterior leads concerning for possible STEMI. He will independently reviewed the patient's EKG. He will return my call 12:18 PM: Returned call received from Dr. Patel. He confirms he is reviewed the patient's EKG. He states that the peaked T waves in the patient's anterior leads as well as the patient's elevated troponin are likely secondary to demand ischemia. He advises continued blood pressure management as well as management for congestive heart failure. He confirms that cardiology will follow the patient during his inpatient admission 01/08/22 12:25 ED Medical Decision Making - Lab Data Result diagrams: 01/08/22 08:53 01/08/22 08:53 - EKG Data When compared to previous EKG there are: changes noted Interpretation: nonspecific ST-T wave michelle 01/08/22 12:27 EKG timed at 11:30 AM: EKG interpreted by me: Ventricular rate 101 bpm. Patient has P waves which procedure QRS complex. Intervals normal. Patient noted to have hyperacute T waves in leads V3 and V4 with ST depressions in V5 and CV 6 as well as 3 and aVF. No ectopic. No arrhythmia. Normal axis. Left ventricular hypertrophy. Patient has prior EKG available for comparison dated August 10, 2021. Patient's EKG is changed in morphology today when compared to prior - Radiology Data Radiology results: report reviewed - Medical Decision Making 61-year-old male with multiple medical comorbidities presents for evaluation of shortness of breath and difficulty breathing status post drinking alcohol and smoking crack cocaine last night. Patient is hypertensive and tachycardic on arrival. Physical examination reveals the patient is mildly ill-appearing with diffuse end expiratory wheezes in his lung simon. He has no pitting edema to his lower extremities. EKG demonstrated hyperacute T waves in his anterior leads which were not present on his last EKG dated August 10, 2021. Therefore cardiology consulted to review and ascertain that the patient's EKG findings were not consistent with an acute ST elevation [place]. See patient's electronic health record for my documented discussion with Dr. Patel, the on-call lithographic press feeder. Additionally, Dr. Patel presented to the ER directly to evaluate the patient. Of note the patient underwent serial abdominal exams by me and denies any abdominal pain here. He is not jaundiced on physical examination. Therefore no abdominal diagnostic imaging warranted at this time per my clinical assessment. Patient will require admission for acute decompensated heart failure, elevated troponin, abnormal EKG, acute on chronic renal insufficiency, and transaminitis. The pt was given duonebs, solumedrol, famotidine IV, and 1 inch nitropaste. He has been accepted by Dr. Quesada, the admitting hospitalist, for further management. Critical Care Time: No Critical care attestation.: If time is entered above; I have spent that time in minutes in the direct care of this critically ill patient, excluding procedure time. ED Disposition Clinical Impression: Cocaine abuse, Chest pain, Dyspnea, Decompensated heart failure, Acute on chronic renal insufficiency, Noncompliance with medication regimen Disposition: 09 ADMITTED INPATIENT Is pt being admited?: Yes Does the pt Need Aspirin: Yes (pt ordered for full dose asa during ER management) Condition: Stable Instructions: Nonspecific Chest Pain, Adult Referrals: GINA LOMELI MD [Primary Care Provider] - 3-5 Days
[2022-01-08] MEDS ORDERED: NITROGLYCERIN 0.1 MG PATCH 24HR TD STA (11:56)
[2022-01-08] MEDS ORDERED: FUROSEMIDE 40 MG/4 ML INJ IV ONE (11:57)
[2022-01-08] MEDS ORDERED: ASPIRIN 81 MG TAB CHEW PO ONE (12:24)
[2022-01-08] MEDS ORDERED: IPRATROPIUM/ALBUTEROL SULFATE 3 ML AMPUL.NEB IH ONE ×2 (12:26→12:27)
[2022-01-08] MEDS ORDERED: methylPREDNISolone Sod Succinate 125 MG/2 ML INJ IV ONE (12:27)
--- NOTE | 2022-01-08 13:30 | Consultation ---
History of Present Illness Consult date: 01/08/22 Consult reason: abnormal cardiac enzymes, shortness of breath Past History Past Medical History: DVT, heart failure, hypertension, renal failure Past Surgical History: No surgical history Social history: alcohol abuse, other (Drug abuse cocaine) Family history: hypertension Medications and Allergies Allergies Allergy/AdvReac Type Severity Reaction Status Date / Time No Known Allergies Allergy Verified 08/06/21 18:20 Home Medications Medication Instructions Recorded Confirmed Last Taken Type Albuterol Mdi (or & Nicu Only) 2 puff IH QID PRN #8.5 gram 08/07/21 Unknown Rx [ProAir HFA Inhaler] Apixaban [Eliquis] 5 mg PO Q12HR 30 Days #60 tablet 08/07/21 Unknown Rx Aspirin [Aspirin BABY CHEW TAB] 81 mg PO QDAY 30 Days #30 tab.chew 08/07/21 Unknown Rx AtorvaSTATin [Lipitor] 40 mg PO QHS 30 Days #30 tablet 08/07/21 Unknown Rx Furosemide [Lasix TAB] 40 mg PO QDAY #30 tablet 08/07/21 Unknown Rx ISOSORBIDE MONOnitrate [Imdur ER] 30 mg PO QDAY #30 tablet 08/07/21 Unknown Rx Metoprolol [Lopressor TAB] 50 mg PO BID #60 tablet 08/07/21 Unknown Rx Omeprazole 20 mg PO QDAY #30 tab. 08/07/21 Unknown Rx amLODIPine 10 mg PO QDAY 30 Days #30 tablet 08/07/21 Unknown Rx Review of Systems Constitutional: no fever, no chills Ears, nose, mouth and throat: no dysphagia Cardiovascular: chest pain, high blood pressure, no orthopnea, no palpitations, no rapid/irregular heart beat Respiratory: shortness of breath, no cough Gastrointestinal: no nausea, no vomiting, no diarrhea, no constipation Genitourinary Male: no dysuria Musculoskeletal: no neck stiffness Integumentary: no rash Physical Examination Vital Signs Temp Pulse Resp BP Pulse Ox 98.8 F 100 H 18 159/100 100 01/08/22 03:15 01/08/22 03:15 01/08/22 03:15 01/08/22 03:15 01/08/22 03:15 General appearance: no acute distress HEENT: Positive: Normocephaly Neck: Positive: neck supple. Negative: JVD/HJR Cardiac: Positive: Reg Rate and Rhythm, S1/S2 Lungs: Positive: Decreased Breath Sounds, Wheezes, Rhonchi Neuro: Positive: Grossly Intact Abdomen: Positive: Soft Skin: Negative: Rash Extremities: Absent: edema Results 01/08/22 08:53 01/08/22 08:53 Cardiac Enzymes 01/08/22 Range/Units 08:53 AST 484 H (5-40) units/L Lipids 01/08/22 Range/Units 08:53 Triglycerides 92 (2-149) mg/dL Cholesterol 152 (50-199) mg/dL HDL Cholesterol 58 (40-59) mg/dL Cholesterol/HDL Ratio 2.62 % CBC 01/08/22 Range/Units 08:53 WBC 13.0 H (4.5-11.0) K/mm3 RBC 5.07 H (3.65-5.03) M/mm3 Hgb 15.0 (11.8-15.2) gm/dl Hct 46.6 H (35.5-45.6) % Plt Count 163 (140-440) K/mm3 Lymph # (Auto) 1.9 (1.2-5.4) K/mm3 [place] # (Auto) 1.2 H (0.0-0.8) K/mm3 Eos # (Auto) 0.0 (0.0-0.4) K/mm3 Baso # (Auto) 0.0 (0.0-0.1) K/mm3 Comprehensive Metabolic Panel 01/08/22 Range/Units 08:53 Sodium 134 L (137-145) mmol/L Potassium 5.1 H (3.6-5.0) mmol/L Chloride 97.6 L (98-107) mmol/L Carbon Dioxide 14 L (22-30) mmol/L BUN 47 H (9-20) mg/dL Creatinine 3.0 H (0.8-1.3) mg/dL Glucose 93 (75-100) mg/dL Calcium 9.3 (8.4-10.2) mg/dL AST 484 H (5-40) units/L ALT 568 H (7-56) units/L Alkaline Phosphatase 140 H (35-129) units/L Total Protein 7.1 (6.3-8.2) g/dL Albumin 4.5 (3.9-5) g/dL EKG interpretations - EKG Sinus rhythms and dysrhythmias: sinus rhythm Chamber hypertrophy or enlargement: left ventricular hypertro Repolarization changes or abnormalities: repolarization abn secondary to ve ntricular hypertrophy (Tall T wave) Assessment and Plan - Patient Problems (1) Elevated troponin Current Visit: No Status: Acute Plan to address problem: His SPECT was negative in August 2020. The elevated troponin is likely type II RI secondary to hypertension acute kidney injury cocaine abuse continue to troponins x2. His EKG T waves are likely from hypertension LVH and demand ischemia. No need for emergent cardiac catheterization at this time. (2) Hypertensive urgency Current Visit: Yes Status: Acute Plan to address problem: Patient blood pressure very high. He has not taken his medication for the past few days and has been using drugs. Please restart his home medications. Can use IV hydralazine as needed. If the blood pressure is uncontrolled may need IV drip to control the blood pressure. (3) Acute on chronic HFrEF (heart failure with reduced ejection fraction) Current Visit: No Status: Acute Plan to address problem: Echocardiogram in May 2020 showed an EF of 20 to 25%. Most recent echo in July 2019 showed EF of 50 to 55%. Given the elevated BNP and recent cocaine abuse he probably has acute congestive heart failure exacerbation can try give a trial of Lasix 40 Mg IV twice daily. He was supposed to be on 40 Mg p.o. home Lasix he was noncompliant with that. Please obtain an echocardiogram to reassess the EF.
[2022-01-08] MEDS ORDERED: NITROGLYCERIN 2% OINT 1 GM TP STA (14:03)
[2022-01-08] MEDS ORDERED: ALBUTEROL 8.5 GM MDI INHALATION IH PRN (14:18)
--- NOTE | 2022-01-08 14:18 | History and Physical Report ---
History of Present Illness Date of examination: 01/08/22 Date of admission: 01/08/2022 Chief complaint: Shortness of breath for 1 day. History of present illness: 61-year-old male with history of hypertension, coronary artery disease, anticoagulation, hyperlipidemia, CHF and GERD comes in for evaluation of shortness of breath. Patient denies chest pain. Patient apparently was smoking crack cocaine and still drinking alcohol after which he developed shortness of b reath and difficulty breathing. Patient is noncompliant with medical regular medications. Takes the medications intermittently. No prior stents. Intermittent diuretic. Pain is about 0 out of 10. No exacerbating or relieving factors. No fever or chills. - Past Medical History ---Hypertension: Yes ---Congestive Heart Failure: Yes ----Pneumonia - Surgical History --unavailable - Social History --Smoking Status: Current Every Day Smoker --Substance Use Type: Cocaine -Family history --Htn - Medications --Home Medications: Home Medications Medication Instructions Recorded Confirmed Last Taken Type Albuterol Mdi (or & Nicu Only) 2 puff IH QID PRN #8.5 gram 08/07/21 Unknown Rx [ProAir HFA Inhaler] Apixaban [Eliquis] 5 mg PO Q12HR 30 Days #60 tablet 08/07/21 Unknown Rx Aspirin [Aspirin BABY CHEW TAB] 81 mg PO QDAY 30 Days #30 tab.chew 08/07/21 Unknown Rx AtorvaSTATin [Lipitor] 40 mg PO QHS 30 Days #30 tablet 08/07/21 Unknown Rx Furosemide [Lasix TAB] 40 mg PO QDAY #30 tablet 08/07/21 Unknown Rx ISOSORBIDE MONOnitrate [Imdur ER] 30 mg PO QDAY #30 tablet 08/07/21 Unknown Rx Metoprolol [Lopressor TAB] 50 mg PO BID #60 tablet 08/07/21 Unknown Rx Omeprazole 20 mg PO QDAY #30 tab.rap.dr 08/07/21 Unknown Rx amLODIPine 10 mg PO QDAY 30 Days #30 tablet 08/07/21 Unknown Rx Review of systems constitutional no weight loss or weight gain no fever or chills HEENT no sore throat no post nasal drip no diplopia Neck no neck stiffness no lymph gland enlargement Chest and lungs no shortness of breath cough or wheezing CVS shortness of breath present. 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 no seizures Skin no rash no itching Psychiatric no depression no homicidal or suicidal tendencies Hematologic no lymphedema or bruising Endocrine no polydipsia no polyuria no cold intolerance no heat intolerance Past History Past Medical History: DVT, heart failure, hypertension, renal failure Past Surgical History: No surgical history Social history: alcohol abuse, other (Drug abuse cocaine) Family history: hypertension Medications and Allergies Allergies Allergy/AdvReac Type Severity Reaction Status Date / Time No Known Allergies Allergy Verified 08/06/21 18:20 Home Medications Medication Instructions Recorded Confirmed Last Taken Type Albuterol Mdi (or & Nicu Only) 2 puff IH QID PRN #8.5 gram 08/07/21 01/08/22 Unknown Rx [ProAir HFA Inhaler] Apixaban [Eliquis] 5 mg PO Q12HR 30 Days #60 tablet 08/07/21 01/08/22 Unknown Rx Aspirin [Aspirin BABY CHEW TAB] 81 mg PO QDAY 30 Days #30 tab.chew 08/07/21 01/08/22 Unknown Rx AtorvaSTATin [Lipitor] 40 mg PO QHS 30 Days #30 tablet 08/07/21 01/08/22 Unknown Rx Furosemide [Lasix TAB] 40 mg PO QDAY #30 tablet 08/07/21 01/08/22 Unknown Rx ISOSORBIDE MONOnitrate [Imdur ER] 30 mg PO QDAY #30 tablet 08/07/21 01/08/22 Unknown Rx Metoprolol [Lopressor TAB] 50 mg PO BID #60 tablet 08/07/21 01/08/22 Unknown Rx Omeprazole 20 mg PO QDAY #30 tab.rap.dr 08/07/21 01/08/22 Unknown Rx amLODIPine 10 mg PO QDAY 30 Days #30 tablet 08/07/21 01/08/22 Unknown Rx Exam - Constitutional Vitals: Temp Pulse Resp BP Pulse Ox 98.8 F 103 H 32 H 193/105 99 01/08/22 03:15 01/08/22 14:00 01/08/22 14:00 01/08/22 14:00 01/08/22 14:00 General appearance: Present: no acute distress, well-nourished - EENT Eyes: Present: PERRL ENT: hearing intact, clear oral mucosa - Neck Neck: Present: supple, normal ROM - Respiratory Respiratory effort: normal Respiratory: bilateral: CTA - Cardiovascular Heart rate: 78 Rhythm: regular Heart Sounds: Present: S1 & S2. Absent: rub, click - Extremities Extremities: no ischemia, pulses intact, pulses symmetrical, No edema Peripheral Pulses: within normal limits - Abdominal General gastrointestinal: Present: soft, non-tender, non-distended, normal bowel sounds Male genitourinary: Present: normal - Integumentary Integumentary: Present: clear, warm, dry - Musculoskeletal Musculoskeletal: gait normal, strength equal bilaterally - Psychiatric Psychiatric: appropriate mood/affect, intact judgment & insight - Neurologic Neurologic: CNII-XII intact, moves all extremities HEART Score - HEART Score Troponin: Troponin T 0.114 ng/mL (0.00-0.029) H* 01/08/22 13:14 Results - Labs CBC & Chem 7: 01/09/22 05:19 01/09/22 05:19 Labs: Laboratory Last Values WBC 13.0 K/mm3 (4.5-11.0) H 01/08/22 08:53 RBC 5.07 M/mm3 (3.65-5.03) H 01/08/22 08:53 Hgb 15.0 gm/dl (11.8-15.2) 01/08/22 08:53 Hct 46.6 % (35.5-45.6) H 01/08/22 08:53 MCV 92 fl (84-94) 01/08/22 08:53 MCH 30 pg (28-32) 01/08/22 08:53 MCHC 32 % (32-34) 01/08/22 08:53 RDW 17.7 % (13.2-15.2) H 01/08/22 08:53 Plt Count 163 K/mm3 (140-440) 01/08/22 08:53 Lymph % (Auto) 14.4 % (13.4-35.0) 01/08/22 08:53 [place] % (Auto) 9.5 % (0.0-7.3) H 01/08/22 08:53 Eos % (Auto) 0.1 % (0.0-4.3) 01/08/22 08:53 Baso % (Auto) 0.3 % (0.0-1.8) 01/08/22 08:53 Lymph # (Auto) 1.9 K/mm3 (1.2-5.4) 01/08/22 08:53 [place] # (Auto) 1.2 K/mm3 (0.0-0.8) H 01/08/22 08:53 Eos # (Auto) 0.0 K/mm3 (0.0-0.4) 01/08/22 08:53 Baso # (Auto) 0.0 K/mm3 (0.0-0.1) 01/08/22 08:53 Seg Neutrophils % 75.7 % (40.0-70.0) H 01/08/22 08:53 Seg Neutrophils # 9.9 K/mm3 (1.8-7.7) H 01/08/22 08:53 Sodium 134 mmol/L (137-145) L 01/08/22 08:53 Potassium 5.1 mmol/L (3.6-5.0) H 01/08/22 08:53 Chloride 97.6 mmol/L (98-107) L 01/08/22 08:53 Carbon Dioxide 14 mmol/L (22-30) L 01/08/22 08:53 Anion Gap 28 mmol/L 01/08/22 08:53 BUN 47 mg/dL (9-20) H 01/08/22 08:53 Creatinine 3.0 mg/dL (0.8-1.3) H 01/08/22 08:53 Estimated GFR 26 ml/min 01/08/22 08:53 BUN/Creatinine Ratio 16 % 01/08/22 08:53 Glucose 93 mg/dL (75-100) 01/08/22 08:53 Calcium 9.3 mg/dL (8.4-10.2) 01/08/22 08:53 Total Bilirubin 1.90 mg/dL (0.1-1.2) H 01/08/22 08:53 AST 484 units/L (5-40) H 01/08/22 08:53 ALT 568 units/L (7-56) H 01/08/22 08:53 Alkaline Phosphatase 140 units/L (35-129) H 01/08/22 08:53 Troponin T 0.114 ng/mL (0.00-0.029) H* 01/08/22 13:14 NT-Pro-B Natriuret Pep 59971 pg/mL (0-900) H 01/08/22 08:53 Total Protein 7.1 g/dL (6.3-8.2) 01/08/22 08:53 Albumin 4.5 g/dL (3.9-5) 01/08/22 08:53 Albumin/Globulin Ratio 1.7 % 01/08/22 08:53 Triglycerides 92 mg/dL (2-149) 01/08/22 08:53 Cholesterol 152 mg/dL (50-199) 01/08/22 08:53 LDL Cholesterol Direct 80 mg/dL (50-130) 01/08/22 08:53 HDL Cholesterol 58 mg/dL (40-59) 01/08/22 08:53 Cholesterol/HDL Ratio 2.62 % 01/08/22 08:53 Plasma/Serum Alcohol < 0.01 % (0-0.07) 01/08/22 12:13 - Imaging and Cardiology Chest x-ray: report reviewed Imaging and Cardiology: Chest x-ray Interval worsening of cardiomegaly suggested.. No cardiopulmonary process. Assessment and Plan Advance Directives: Yes (Full code) VTE prophylaxis?: Chemical Plan of care discussed with patient/family: Yes - Patient Problems (1) Acute respiratory failure with hypoxia Current Visit: Yes Status: Acute Plan to address problem: Patient is hypoxic initially Improved with oxygen supplementation (2) Acute exacerbation of CHF (congestive heart failure) Current Visit: Yes Status: Acute Plan to address problem: Echocardiogram for ejection fraction Cardiology consulted IV Lasix (3) Elevated troponin Current Visit: Yes Status: Acute Plan to address problem: Possibly secondary to increased creatinine Will defer to cardiology (4) Acute hepatitis Current Visit: Yes Status: Acute Plan to address problem: Hepatitis profile probably ruled out for hepatitis AST is 484 ALT 568 (5) Cocaine abuse Current Visit: Yes Status: Chronic Plan to address problem: Patient counseled about the dangers of cocaine and vasospasm and causing LA (6) MU (acute kidney injury) Current Visit: Yes Status: Acute Plan to address problem: Nephrology consulted Treatment conundrum because of the CHF Cannot do IV fluids (7) Hypertension Current Visit: Yes Status: Chronic Qualifiers: Hypertension type: primary hypertension Qualified Code(s): I10 - Essential (primary) hypertension Plan to address problem: Continue antihypertensives (8) Anticoagulation adequate Current Visit: Yes Status: Chronic Plan to address problem: On Eliquis Reason unclear Primary team to ask about Eliquis (9) Hyperlipidemia Current Visit: Yes Status: Chronic Qualifiers: Hyperlipidemia type: mixed hyperlipidemia Qualified Code(s): E78.2 - Mixed hyperlipidemia Plan to address problem: Will stop the statins because of increased liver enzyme levels (10) DVT prophylaxis Current Visit: Yes Status: Chronic Plan to address problem: On heparin and GI prophylaxis (11) Advance care planning Current Visit: Yes Status: Acute Plan to address problem: Disease education conducted, care plan discussed, diagnosis and prognosis discussed. Patient is full code. Patient acknowledges current plan. +30 min utes.
[2022-01-08] MEDS ORDERED: ONDANSETRON 4 MG/2 ML INJ IV PRN (14:22)
[2022-01-08] MEDS ORDERED: oxyCODONE /ACETAMINOPHEN 5-325MG TAB PO PRN (14:22)
[2022-01-08] MEDS ORDERED: MORPHINE 2 MG/1 ML INJ IV PRN (14:22)
[2022-01-08] MEDS ORDERED: METOCLOPRAMIDE 10 MG/2 ML INJ IV PRN (14:22)
[2022-01-08] MEDS ORDERED: OMEPRAZOLE 20 MG PO SCH (14:30)
[2022-01-08] MEDS ORDERED: HEPARIN 5,000 UNIT/1 ML VIAL SUB-Q SCH (14:30)
[2022-01-08] MEDS ORDERED: ALBUTEROL 2.5 MG/3 ML NEBU IH PRN (15:00)
[2022-01-08] MEDS ORDERED: METOPROLOL TARTRATE 50 MG TAB PO ONE (16:00)
[2022-01-08] MEDS: amLODIPine 10 MG TAB PO SCH (16:02)
[2022-01-08] MEDS: PANTOPRAZOLE 20 MG TAB PO SCH (16:03)
[2022-01-08 17:36] LABS: Amphetamine Screen,Urine PRESUMPTIVE NEGATIVE; Benzodiazepines Screen,Urine PRESUMPTIVE NEGATIVE; Cannabinoid Screen,Urine PRESUMPTIVE POSITIVE; Cocaine Screen,Urine PRESUMPTIVE POSITIVE; Methadone Screen,Urine PRESUMPTIVE NEGATIVE; Opiate Screen,Urine PRESUMPTIVE NEGATIVE
[2022-01-08] MEDS ORDERED: hydrALAZINE 20 MG/1 ML INJ IV PRN (22:23)
[2022-01-09] MEDS ORDERED: APIXABAN 2.5 MG TAB PO ONE (00:45)
[2022-01-09 06:42] LABS: Hematocrit 40.4 % (35.5-45.6); Hemoglobin 13.5 gm/dl (11.8-15.2); Mean Corpuscular HGB Conc 33 % (32-34); Mean Corpuscular Volume 90 fl (84-94); Platelet Count 141 K/mm3 (140-440); Red Cell Distribution Width 17.1 % (13.2-15.2)
[2022-01-09 07:05] LABS: Calcium 8.2 mg/dL (8.4-10.2)
[2022-01-09] MEDS ORDERED: REGADENOSON 0.4 MG/5 ML INJ IV ONE (07:12)
[2022-01-09] MEDS ORDERED: SODIUM POLYSTYRENE 15 GM/60 ML ORAL LIQD PO NR (07:30)
--- NOTE | 2022-01-09 07:34 | Progress Note ---
Assessment and Plan Assessment and plan: --Severe hyperkalemia; Calcium gluconate 2 g IV x1 Kayexalate 30 g x 1 dose Closely monitor electrolytes Nephrology consulted --Acute on chronic kidney disease : Vasomotor nephropathy Gentle hydration, monitor renal function, avoid nephrotoxins Renal dosing of medications Nephrology consulted --Non-ST elevation ND ; Probably nonspecific type II Secondary to acute kidney injury, cocaine abuse Serial cardiac enzymes, serial EKGs Echo for LV function ejection fraction Cardiology following --Acute on chronic combined systolic and diastolic congestive heart failure 05/2020] [EF 20 to 25%, 08/06/2021; LVEF is 50 to 55% Gentle diuresis, beta-blockers, no RENEA inhibitor's due to kidney disease Input output monitoring, fluid restriction, low-sodium diet Follow echocardiogram, cardiology following -- Hypertensive urgency; mild improvement Continue current antihypertensives as needed hydralazine Closely monitor --Acute liver failure: Acute hepatitis LFTs in the thousands ,probably alcohol and drug induced Check hepatitis panel, abdominal ultrasound GI consulted Closely monitor LFTs --History of lower extremity DVT; On Eliquis, continue 5 mg p.o. twice a day Elevate the limb supportive care --polysubstance abuse; Marijuana, cocaine, alcohol Patient strongly counseled to quit recreational drug use And to quit alcohol intake --DVT prophylaxis; SCDs, patient is on Eliquis Advance care plan; 35 minutes Discussed with the patient his condition, tests and reports Diagnosis, discussed the treatment plan, discussed the consultants evaluation recommendations Discussed the prognosis, he has some questions answered all of them, he verbalized understanding Preventive health care counseling; 30 minutes Strongly advised to quit alcohol, quit recreational drug use marijuana and cocaine Patient verbalized understanding, risks and consequences of prolonged recreational drugs explained to the patient Verbalized understanding Closely monitor the patient and adjust the management as needed Follow consultants and recommendations History Interval history: I have seen and examined the patient at the bedside this morning Patient's chart and medications reviewed Planes of mild shortness of breath, denies chest pain Vital signs noted Hospitalist Physical - Constitutional Vitals: Temp Pulse Resp BP Pulse Ox 97.6 F 103 H 20 193/101 97 01/08/22 19:21 01/09/22 02:05 01/08/22 19:21 01/08/22 22:53 01/08/22 18:14 General appearance: Present: no acute distress, well-nourished - EENT Eyes: Present: PERRL, EOM intact - Neck Neck: Present: supple, normal ROM - Respiratory Respiratory effort: normal Respiratory: bilateral: diminished, rales, negative: rhonchi, wheezing - Cardiovascular Rhythm: regular Heart Sounds: Present: S1 & S2 - Extremities Extremities: no ischemia, No edema - Abdominal General gastrointestinal: soft, non-tender, non-distended, normal bowel sounds - Integumentary Integumentary: Present: clear, warm - Psychiatric Psychiatric: appropriate mood/affect, cooperative - Neurologic Neurologic: CNII-XII intact, moves all extremities HEART Score - HEART Score Troponin: Troponin T 0.100 ng/mL (0.00-0.029) H 01/09/22 05:19 Results - Labs CBC & Chem 7: 01/09/22 05:19 01/09/22 05:19 Labs: Laboratory Last Values WBC 20.2 K/mm3 (4.5-11.0) H 01/09/22 05:19 RBC 4.50 M/mm3 (3.65-5.03) 01/09/22 05:19 Hgb 13.5 gm/dl (11.8-15.2) 01/09/22 05:19 Hct 40.4 % (35.5-45.6) D 01/09/22 05:19 MCV 90 fl (84-94) 01/09/22 05:19 MCH 30 pg (28-32) 01/09/22 05:19 MCHC 33 % (32-34) 01/09/22 05:19 RDW 17.1 % (13.2-15.2) H 01/09/22 05:19 Plt Count 141 K/mm3 (140-440) 01/09/22 05:19 Lymph % (Auto) 14.4 % (13.4-35.0) 01/08/22 08:53 [place] % (Auto) 9.5 % (0.0-7.3) H 01/08/22 08:53 Eos % (Auto) 0.1 % (0.0-4.3) 01/08/22 08:53 Baso % (Auto) 0.3 % (0.0-1.8) 01/08/22 08:53 Lymph # (Auto) 1.9 K/mm3 (1.2-5.4) 01/08/22 08:53 [place] # (Auto) 1.2 K/mm3 (0.0-0.8) H 01/08/22 08:53 Eos # (Auto) 0.0 K/mm3 (0.0-0.4) 01/08/22 08:53 Baso # (Auto) 0.0 K/mm3 (0.0-0.1) 01/08/22 08:53 Seg Neutrophils % 75.7 % (40.0-70.0) H 01/08/22 08:53 Seg Neutrophils # 9.9 K/mm3 (1.8-7.7) H 01/08/22 08:53 Sodium 130 mmol/L (137-145) L 01/09/22 05:19 Potassium 6.9 mmol/L (3.6-5.0) H* D 01/09/22 05:19 Chloride 97.9 mmol/L (98-107) L 01/09/22 05:19 Carbon Dioxide 17 mmol/L (22-30) L 01/09/22 05:19 Anion Gap 22 mmol/L 01/09/22 05:19 BUN 68 mg/dL (9-20) H 01/09/22 05:19 Creatinine 3.2 mg/dL (0.8-1.3) H 01/09/22 05:19 Estimated GFR 24 ml/min 01/09/22 05:19 BUN/Creatinine Ratio 21 % 01/09/22 05:19 Glucose 166 mg/dL (75-100) H 01/09/22 05:19 Calcium 8.2 mg/dL (8.4-10.2) L 01/09/22 05:19 Total Bilirubin 1.10 mg/dL (0.1-1.2) 01/09/22 05:19 AST 484 units/L (5-40) H 01/08/22 08:53 ALT 568 units/L (7-56) H 01/08/22 08:53 Alkaline Phosphatase 133 units/L (35-129) H 01/09/22 05:19 Troponin T 0.100 ng/mL (0.00-0.029) H 01/09/22 05:19 NT-Pro-B Natriuret Pep 16709 pg/mL (0-900) H 01/08/22 08:53 Total Protein 6.4 g/dL (6.3-8.2) 01/09/22 05:19 Albumin 4.0 g/dL (3.9-5) 01/09/22 05:19 Albumin/Globulin Ratio 1.7 % 01/09/22 05:19 Triglycerides 92 mg/dL (2-149) 01/08/22 08:53 Cholesterol 152 mg/dL (50-199) 01/08/22 08:53 LDL Cholesterol Direct 80 mg/dL (50-130) 01/08/22 08:53 HDL Cholesterol 58 mg/dL (40-59) 01/08/22 08:53 Cholesterol/HDL Ratio 2.62 % 01/08/22 08:53 Urine Opiates Screen Presumptive negative 01/08/22 17:15 Urine Methadone Screen Presumptive negative 01/08/22 17:15 Ur Barbiturates Screen Presumptive negative 01/08/22 17:15 Ur Phencyclidine Scrn Presumptive negative 01/08/22 17:15 Ur Amphetamines Screen Presumptive negative 01/08/22 17:15 U Benzodiazepines Scrn Presumptive negative 01/08/22 17:15 Urine Cocaine Screen Presumptive positive 01/08/22 17:15 U Marijuana (THC) Screen Presumptive positive 01/08/22 17:15 Drugs of Abuse Note Disclamer 01/08/22 17:15 Plasma/Serum Alcohol < 0.01 % (0-0.07) 01/08/22 12:13 [place]/IV: Voiding Method Toilet Active Medications - Current Medications Current Medications: Generic Name Dose Route Start Last Admin Trade Name Freq PRN Reason Stop Dose Admin Acetaminophen 650 mg 01/08/22 14:22 Acetaminophen 325 Mg Tab PO Q4H PRN Pain MILD(1-3)/Fever >100.5/CROOKS Albuterol 2.5 mg 01/08/22 15:00 Albuterol 2.5 Mg/3 Ml Nebu IH Q4H PRN Shortness Of Breath Amlodipine Besylate 10 mg 01/08/22 16:00 01/08/22 16:02 Amlodipine 10 Mg Tab PO 10 mg QDAY SURYA Administration Apixaban 5 mg 01/08/22 22:00 Apixaban 5 Mg Tab PO Q12HR SURYA Aspirin 81 mg 01/09/22 10:00 Aspirin 81 Mg Tab Chew PO QDAY SURYA Atorvastatin Calcium 40 mg 01/08/22 22:00 Atorvastatin 40 Mg Tab PO QHS SURYA Furosemide 40 mg 01/09/22 10:00 Furosemide 40 Mg Tab PO QDAY [facility] Hydralazine HCl 10 mg 01/08/22 22:23 01/08/22 22:53 Hydralazine 20 Mg/1 Ml Inj IV 10 mg Q6H PRN Administration Blood Pressure Sodium Chloride 1,000 mls @ 75 mls/hr 01/08/22 14:30 Nacl 0.9% 1000 Ml IV DIRECT SURYA Isosorbide Mononitrate 30 mg 01/08/22 16:00 01/08/22 18:14 Isosorbide Mononitrate Er 30 Mg Tab PO 30 mg QDAY [facility] Administration Metoclopramide HCl 5 mg 01/08/22 14:22 Metoclopramide 10 Mg/2 Ml Inj IV Q6H PRN Nausea And Vomiting Metoprolol Tartrate 50 mg 01/09/22 10:00 Metoprolol Tartrate 50 Mg Tab PO BID [facility] Morphine Sulfate 2 mg 01/08/22 14:22 Morphine 2 Mg/1 Ml Inj IV Q4H PRN Pain, Moderate (4-6) Ondansetron HCl 4 mg 01/08/22 14:22 Ondansetron 4 Mg/2 Ml Inj IV Q8H PRN Nausea And Vomiting Oxycodone/Acetaminophen 1 tab 01/08/22 14:22 01/08/22 18:15 Oxycodone /Acetaminophen 5-325mg Tab PO 1 tab Q6H PRN Administration Pain, Moderate (4-6) Pantoprazole Sodium 20 mg 01/08/22 16:00 01/08/22 16:03 Pantoprazole 20 Mg Tab PO 20 mg QDAY [facility] Administration Regadenoson 0.4 mg 01/09/22 07:12 Regadenoson 0.4 Mg/5 Ml Inj IV 01/09/22 07:13 ONCE ONE Sodium Chloride 10 ml 01/08/22 22:00 01/08/22 22:55 Sodium Chloride 0.9% 10 Ml Flush Syringe IV 10 ml BID SURYA Administration Sodium Chloride 10 ml 01/08/22 14:22 Sodium Chloride 0.9% 10 Ml Flush Syringe IV PRN PRN LINE FLUSH
--- NOTE | 2022-01-09 08:20 | Gastroenterology Consultation ---
History of Present Illness - Reason for Consult Consult date: 01/09/22 Elevated liver enzymes Requesting physician: PRESTON BAEZ - History of Present Illness Pleasant 61-year-old gentleman who denies any history of liver disease presents with progressive shortness of breath and weakness for whom GI is consulted for abnormal liver enzymes Patient denies any history of any liver disease though he does of note report using cocaine this past week Denies any other risk factors for liver injury Reports still feeling weak and short of breath denies abdominal pain Obtained/updated/reviewed patient's current medications Past History Past Medical History: DVT, heart failure, hypertension, renal failure Past Surgical History: No surgical history Social history: alcohol abuse, other (Drug abuse cocaine) Family history: hypertension Medications and Allergies Allergies Allergy/AdvReac Type Severity Reaction Status Date / Time No Known Allergies Allergy Verified 08/06/21 18:20 Home Medications Medication Instructions Recorded Confirmed Last Taken Type Albuterol Mdi (or & Nicu Only) 2 puff IH QID PRN #8.5 gram 08/07/21 01/08/22 Unknown Rx [ProAir HFA Inhaler] Apixaban [Eliquis] 5 mg PO Q12HR 30 Days #60 tablet 08/07/21 01/08/22 Unknown Rx Aspirin [Aspirin BABY CHEW TAB] 81 mg PO QDAY 30 Days #30 tab.chew 08/07/21 01/08/22 Unknown Rx AtorvaSTATin [Lipitor] 40 mg PO QHS 30 Days #30 tablet 08/07/21 01/08/22 Unknown Rx Furosemide [Lasix TAB] 40 mg PO QDAY #30 tablet 08/07/21 01/08/22 Unknown Rx ISOSORBIDE MONOnitrate [Imdur ER] 30 mg PO QDAY #30 tablet 08/07/21 01/08/22 Unknown Rx Metoprolol [Lopressor TAB] 50 mg PO BID #60 tablet 08/07/21 01/08/22 Unknown Rx Omeprazole 20 mg PO QDAY #30 tab. 08/07/21 01/08/22 Unknown Rx amLODIPine 10 mg PO QDAY 30 Days #30 tablet 08/07/21 01/08/22 Unknown Rx Active Meds: Active Medications Acetaminophen (Acetaminophen 325 Mg Tab) 650 mg PO Q4H PRN PRN Reason: Pain MILD(1-3)/Fever >100.5/CROOKS Albuterol (Albuterol 2.5 Mg/3 Ml Nebu) 2.5 mg IH Q4H PRN PRN Reason: Shortness Of Breath Amlodipine Besylate (Amlodipine 10 Mg Tab) 10 mg PO QDAY [facility] Last Admin: 01/08/22 16:02 Dose: 10 mg Apixaban (Apixaban 5 Mg Tab) 5 mg PO Q12HR [facility] Aspirin (Aspirin 81 Mg Tab Chew) 81 mg PO QDAY [facility] Atorvastatin Calcium (Atorvastatin 40 Mg Tab) 40 mg PO QHS [facility] Furosemide (Furosemide 40 Mg Tab) 40 mg PO QDAY [facility] Hydralazine HCl (Hydralazine 20 Mg/1 Ml Inj) 10 mg IV Q6H PRN PRN Reason: Blood Pressure Last Admin: 01/08/22 22:53 Dose: 10 mg Sodium Chloride (Nacl 0.9% 1000 Ml) 1,000 mls @ 75 mls/hr IV DIRECT SURYA Calcium Gluconate 2,000 mg/ (Sodium Chloride) 120 mls @ 240 mls/hr IV ONCE ONE Stop: 01/09/22 09:29 Isosorbide Mononitrate (Isosorbide Mononitrate Er 30 Mg Tab) 30 mg PO QDAY [facility] Last Admin: 01/08/22 18:14 Dose: 30 mg Metoclopramide HCl (Metoclopramide 10 Mg/2 Ml Inj) 5 mg IV Q6H PRN PRN Reason: Nausea And Vomiting Metoprolol Tartrate (Metoprolol Tartrate 50 Mg Tab) 50 mg PO BID [facility] Morphine Sulfate (Morphine 2 Mg/1 Ml Inj) 2 mg IV Q4H PRN PRN Reason: Pain, Moderate (4-6) Ondansetron HCl (Ondansetron 4 Mg/2 Ml Inj) 4 mg IV Q8H PRN PRN Reason: Nausea And Vomiting Oxycodone/Acetaminophen (Oxycodone /Acetaminophen 5-325mg Tab) 1 tab PO Q6H PRN PRN Reason: Pain, Moderate (4-6) Last Admin: 01/08/22 18:15 Dose: 1 tab Pantoprazole Sodium (Pantoprazole 20 Mg Tab) 20 mg PO QDAY [facility] Last Admin: 01/08/22 16:03 Dose: 20 mg Sodium Chloride (Sodium Chloride 0.9% 10 Ml Flush Syringe) 10 ml IV BID [facility] Last Admin: 01/08/22 22:55 Dose: 10 ml Sodium Chloride (Sodium Chloride 0.9% 10 Ml Flush Syringe) 10 ml IV PRN PRN PRN Reason: LINE FLUSH Sodium Polystyrene Sulfonate (Sodium Polystyrene 15 Gm/60 Ml Oral Liqd) 30 gm PO ONCE NR Stop: 01/09/22 09:30 Review of Systems - Review of Systems All systems: negative (10 Systems reviewed and negative except as mentioned above in the history of present illness) Exam - Constitutional Vital Signs: Temp Pulse Resp BP Pulse Ox 98.6 F 66 16 133/84 97 01/09/22 07:51 01/09/22 07:49 01/09/22 07:51 01/09/22 07:49 01/09/22 07:49 General appearance: no acute distress - EENT Eyes: EOM intact - Neck Neck: supple - Respiratory Respiratory effort: normal - Cardiovascular Rhythm: regular - Gastrointestinal General gastrointestinal: Present: soft, non-tender - Integumentary Integumentary: Present: dry - Musculoskeletal Musculoskeletal: normal - Neurologic Neurological: oriented to person, oriented to place - Psychiatric Psychiatric: appropriate mood/affect - Labs CBC & Chem 7: 01/09/22 05:19 01/09/22 05:19 Lab Results: Laboratory Results - last 24 hr 01/08/22 01/08/22 01/08/22 08:53 08:53 12:13 WBC 13.0 H RBC 5.07 H Hgb 15.0 Hct 46.6 H MCV 92 MCH 30 MCHC 32 RDW 17.7 H Plt Count 163 Lymph % (Auto) 14.4 [place] % (Auto) 9.5 H Eos % (Auto) 0.1 Baso % (Auto) 0.3 Lymph # (Auto) 1.9 [place] # (Auto) 1.2 H Eos # (Auto) 0.0 Baso # (Auto) 0.0 Seg Neutrophils % 75.7 H Seg Neutrophils # 9.9 H Sodium 134 L Potassium 5.1 H Chloride 97.6 L Carbon Dioxide 14 L Anion Gap 28 BUN 47 H Creatinine 3.0 H Estimated GFR 26 BUN/Creatinine Ratio 16 Glucose 93 Calcium 9.3 Total Bilirubin 1.90 H AST 484 H ALT 568 H Alkaline Phosphatase 140 H Troponin T 0.108 H* NT-Pro-B Natriuret Pep 91194 H Total Protein 7.1 Albumin 4.5 Albumin/Globulin Ratio 1.7 Triglycerides 92 Cholesterol 152 LDL Cholesterol Direct 80 HDL Cholesterol 58 Cholesterol/HDL Ratio 2.62 Urine Opiates Screen Urine Methadone Screen Ur Barbiturates Screen Ur Phencyclidine Scrn Ur Amphetamines Screen U Benzodiazepines Scrn Urine Cocaine Screen U Marijuana (THC) Screen Drugs of Abuse Note Plasma/Serum Alcohol < 0.01 01/08/22 01/08/22 01/09/22 13:14 17:15 05:19 WBC 20.2 H RBC 4.50 Hgb 13.5 Hct 40.4 D MCV 90 MCH 30 MCHC 33 RDW 17.1 H Plt Count 141 Lymph % (Auto) [place] % (Auto) Eos % (Auto) Baso % (Auto) Lymph # (Auto) [place] # (Auto) Eos # (Auto) Baso # (Auto) Seg Neutrophils % Seg Neutrophils # Sodium Potassium Chloride Carbon Dioxide Anion Gap BUN Creatinine Estimated GFR BUN/Creatinine Ratio Glucose Calcium Total Bilirubin AST ALT Alkaline Phosphatase Troponin T 0.114 H* NT-Pro-B Natriuret Pep Total Protein Albumin Albumin/Globulin Ratio Triglycerides Cholesterol LDL Cholesterol Direct HDL Cholesterol Cholesterol/HDL Ratio Urine Opiates Screen Presumptive negative Urine Methadone Screen Presumptive negative Ur Barbiturates Screen Presumptive negative Ur Phencyclidine Scrn Presumptive negative Ur Amphetamines Screen Presumptive negative U Benzodiazepines Scrn Presumptive negative Urine Cocaine Screen Presumptive positive U Marijuana (THC) Screen Presumptive positive Drugs of Abuse Note Disclamer Plasma/Serum Alcohol 01/09/22 05:19 WBC RBC Hgb Hct MCV MCH MCHC RDW Plt Count Lymph % (Auto) [place] % (Auto) Eos % (Auto) Baso % (Auto) Lymph # (Auto) [place] # (Auto) Eos # (Auto) Baso # (Auto) Seg Neutrophils % Seg Neutrophils # Sodium 130 L Potassium 6.9 H* D Chloride 97.9 L Carbon Dioxide 17 L Anion Gap 22 BUN 68 H Creatinine 3.2 H Estimated GFR 24 BUN/Creatinine Ratio 21 Glucose 166 H Calcium 8.2 L Total Bilirubin 1.10 AST 3638 H ALT 1918 H Alkaline Phosphatase 133 H Troponin T 0.100 H NT-Pro-B Natriuret Pep Total Protein 6.4 Albumin 4.0 Albumin/Globulin Ratio 1.7 Triglycerides Cholesterol LDL Cholesterol Direct HDL Cholesterol Cholesterol/HDL Ratio Urine Opiates Screen Urine Methadone Screen Ur Barbiturates Screen Ur Phencyclidine Scrn Ur Amphetamines Screen U Benzodiazepines Scrn Urine Cocaine Screen U Marijuana (THC) Screen Drugs of Abuse Note Plasma/Serum Alcohol Assessment and Plan Acute hepatitis panel ordered -Differential diagnosis is ischemic hepatitis due to patient's acute cardiac issues as well as cocaine use. Rest of differential diagnosis includes medication related, infectious, etc. Please continue to trend liver enzymes. We will continue to follow with you. - Patient Problems (1) Acute hepatitis Current Visit: Yes Status: Acute (2) Acute on chronic HFrEF (heart failure with reduced ejection fraction) Current Visit: No Status: Acute (3) History of cocaine abuse Current Visit: No Status: Resolved
[2022-01-09] MEDS ORDERED: CALCIUM GLUCONATE 2,000 MG in SODIUM CHLORIDE 0.9% 100 ML IV ONE (09:00)
[2022-01-09] MEDS ORDERED: METOPROLOL TARTRATE 50 MG TAB PO SCH (10:00)
[2022-01-09] MEDS: amLODIPine 10 MG TAB PO SCH (10:00)
[2022-01-09 11:25] LABS: Basophils % (Manual) 0 % (0.0-1.8); Burr Cells 1+; Eosinophils % (Manual) 0 % (0.0-4.3); Large Platelets Few; Target Cells 1+; Tear Drop Cells Few; Total Cells Counted 100
[2022-01-09 11:26] LABS: Platelet Estimate Consistent w Auto
--- NOTE | 2022-01-09 12:57 | Progress Note ---
Assessment and Plan Patient is a 61-year-old male with history of hypertension, coronary artery disease, anticoagulation, hyperlipidemia, CHF and GERD comes in for evaluation of shortness of breath. Acute respiratory failure NSTEMI Leukocytosis Acute on chronic HFpEF MU on CKD- Nephrology following Hyperkalemia Elevated LFTs- GI following Crack cocaine use-UDS positive for cocaine Medical noncompliance History of hypertension Hyperlipidemia Echo 08/06/2021-EF 50 to 55%. Mild concentric LVH. Left ventricular end-d iastolic pressure is elevated. Right ventricle is borderline dilated. Right ventricle systolic function is normal. Left atrium mildly dilated. Mild to moderate aortic regurgitation. Trace tricuspid regurgitation Lexiscan MPI stress test 08/30/2020-stress test negative for signs of ischemia Plan: [facility] initially consulted on patient however patient has been previously seen by our practice in the past. Patient has been transferred to our practice EKG sinus rhythm with no acute ischemic changes. Patient denies chest pain. Troponin is noted to be elevated however suspect troponin elevation in setting of MU, leukocytosis, and crack cocaine use Patient currently on amlodipine 10 mg p.o. daily, Eliquis, aspirin, atorvastatin 40 mg p.o. nightly, Lasix 40 mg p.o. daily, Imdur 30 mg p.o. daily UDS positive for cocaine we will hold beta-chepe at this time Due to patient's renal function will defer volume management to nephrology Echo pending Patient seen in conjunction with Dr. 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 (6) History of cocaine abuse Current Visit: No Status: Resolved (7) Acute on chronic HFrEF (heart failure with reduced ejection fraction) Current Visit: No Status: Acute (8) Cocaine abuse Current Visit: Yes Status: Chronic (9) Acute on chronic renal insufficiency Current Visit: Yes Status: Acute (10) Noncompliance with medication regimen Current Visit: Yes Status: Acute (11) Hypertensive urgency Current Visit: Yes Status: Acute (12) Acute respiratory failure with hypoxia Current Visit: Yes Status: Acute (13) Acute hepatitis Current Visit: Yes Status: Acute Subjective Date of service: 01/09/22 Principal diagnosis: SOB, NSTEMI, MU, Interval history: Patient resting in bed in no acute distress. Patient appears lethargic Sinus 70s on monitor Objective Vital Signs Temp Pulse Resp BP Pulse Ox 01/09/22 07:51 98.6 F 16 01/09/22 07:49 98.6 F 66 16 133/84 97 01/09/22 04:44 98.3 F 69 18 123/75 97 01/09/22 02:05 103 H 01/09/22 01:04 98.6 F 85 18 158/100 86 01/08/22 22:53 76 193/101 01/08/22 22:17 193/101 01/08/22 19:21 97.6 F 20 199/99 01/08/22 19:15 20 01/08/22 18:14 97 01/08/22 18:05 97 01/08/22 16:52 110 H 35 H 100 01/08/22 15:46 95 H 27 H 175/95 100 01/08/22 15:30 94 H 24 178/97 100 01/08/22 15:16 94 H 25 H 179/108 01/08/22 15:00 97 H 29 H 183/90 61 L 01/08/22 14:46 96 H 28 H 177/106 58 L 01/08/22 14:30 105 H 31 H 193/125 95 01/08/22 14:16 108 H 32 H 205/106 99 01/08/22 14:00 103 H 32 H 193/105 99 01/08/22 13:46 98 H 30 H 189/108 98 01/08/22 13:30 97 H 27 H 195/118 99 01/08/22 13:16 100 H 25 H 187/115 100 01/08/22 13:00 96 H 27 H 187/115 99 - Physical Examination General: No Apparent Distress HEENT: Positive: Normocephaly Neck: Positive: neck supple. Negative: JVD/HJR Cardiac: Positive: Reg Rate and Rhythm Lungs: Positive: Normal Breath Sounds Neuro: Positive: Grossly Intact Abdomen: Positive: Soft Skin: Negative: Rash Extremities: Absent: edema - Labs and Meds Cardiac Enzymes 01/08/22 01/08/22 01/08/22 Range/Units 08:53 08:53 12:13 WBC 13.0 H (4.5-11.0) K/mm3 RBC 5.07 H (3.65-5.03) M/mm3 Hgb 15.0 (11.8-15.2) gm/dl Hct 46.6 H (35.5-45.6) % MCV 92 (84-94) fl MCH 30 (28-32) pg MCHC 32 (32-34) % RDW 17.7 H (13.2-15.2) % Plt Count 163 (140-440) K/mm3 Lymph % (Auto) 14.4 (13.4-35.0) % Garden % (Auto) 9.5 H (0.0-7.3) % Eos % (Auto) 0.1 (0.0-4.3) % Baso % (Auto) 0.3 (0.0-1.8) % Lymph # (Auto) 1.9 (1.2-5.4) K/mm3 Garden # (Auto) 1.2 H (0.0-0.8) K/mm3 Eos # (Auto) 0.0 (0.0-0.4) K/mm3 Baso # (Auto) 0.0 (0.0-0.1) K/mm3 Add Manual Diff Total Counted Seg Neutrophils % 75.7 H (40.0-70.0) % Seg Neuts % (Manual) (40.0-70.0) % Band Neutrophils % % Lymphocytes % (Manual) (13.4-35.0) % Reactive Lymphs % (Man) % Monocytes % (Manual) (0.0-7.3) % Eosinophils % (Manual) (0.0-4.3) % Basophils % (Manual) (0.0-1.8) % Metamyelocytes % % Myelocytes % % Promyelocytes % % Blast Cells % % Nucleated RBC % Seg Neutrophils # 9.9 H (1.8-7.7) K/mm3 Seg Neutrophils # Man (1.8-7.7) K/mm3 Band Neutrophils # K/mm3 Lymphocytes # (Manual) (1.2-5.4) K/mm3 Abs React Lymphs (Man) K/mm3 Monocytes # (Manual) (0.0-0.8) K/mm3 Eosinophils # (Manual) (0.0-0.4) K/mm3 Basophils # (Manual) (0.0-0.1) K/mm3 Metamyelocytes # K/mm3 Myelocytes # K/mm3 Promyelocytes # K/mm3 Blast Cells # K/mm3 WBC Morphology Hypersegmented Neuts Hyposegmented Neuts Hypogranular Neuts Smudge Cells Toxic Granulation Toxic Vacuolation Dohle Bodies Pelger-Huet Anomaly Nica Rods Platelet Estimate Clumped Platelets Plt Clumps, EDTA Large Platelets Giant Platelets Platelet Satelliting Plt Morphology Comment RBC Morphology Dimorphic RBCs Polychromasia Hypochromasia Poikilocytosis Anisocytosis Microcytosis Macrocytosis Spherocytes Pappenheimer Bodies Sickle Cells Target Cells Tear Drop Cells Ovalocytes Helmet Cells [place] Bodies [place] Rings [place] Cells Bite Cells Crenated Cell Elliptocytes Acanthocytes (Spur) Rouleaux Hemoglobin C Crystals Schistocytes Malaria parasites Josh Bodies Hem Pathologist Commnt Sodium 134 L (137-145) mmol/L Potassium 5.1 H (3.6-5.0) mmol/L Chloride 97.6 L (98-107) mmol/L Carbon Dioxide 14 L (22-30) mmol/L Anion Gap 28 mmol/L BUN 47 H (9-20) mg/dL Creatinine 3.0 H (0.8-1.3) mg/dL Estimated GFR 26 ml/min BUN/Creatinine Ratio 16 % Glucose 93 (75-100) mg/dL Calcium 9.3 (8.4-10.2) mg/dL Total Bilirubin 1.90 H (0.1-1.2) mg/dL AST (5-40) units/L ALT 568 H (7-56) units/L Alkaline Phosphatase 140 H (35-129) units/L Troponin T 0.108 H* (0.00-0.029) ng/mL NT-Pro-B Natriuret Pep 42864 H (0-900) pg/mL Total Protein 7.1 (6.3-8.2) g/dL Albumin 4.5 (3.9-5) g/dL Albumin/Globulin Ratio 1.7 % Triglycerides 92 (2-149) mg/dL Cholesterol 152 (50-199) mg/dL LDL Cholesterol Direct 80 (50-130) mg/dL HDL Cholesterol 58 (40-59) mg/dL Cholesterol/HDL Ratio 2.62 % Urine Opiates Screen Urine Methadone Screen Ur Barbiturates Screen Ur Phencyclidine Scrn Ur Amphetamines Screen U Benzodiazepines Scrn Urine Cocaine Screen U Marijuana (THC) Screen Drugs of Abuse Note Plasma/Serum Alcohol < 0.01 (0-0.07) % 01/08/22 01/08/22 01/09/22 Range/Units 13:14 17:15 05:19 WBC 20.2 H (4.5-11.0) K/mm3 RBC 4.50 (3.65-5.03) M/mm3 Hgb 13.5 (11.8-15.2) gm/dl Hct 40.4 D (35.5-45.6) % MCV 90 (84-94) fl MCH 30 (28-32) pg MCHC 33 (32-34) % RDW 17.1 H (13.2-15.2) % Plt Count 141 (140-440) K/mm3 Lymph % (Auto) (13.4-35.0) % Garden % (Auto) (0.0-7.3) % Eos % (Auto) (0.0-4.3) % Baso % (Auto) (0.0-1.8) % Lymph # (Auto) (1.2-5.4) K/mm3 Garden # (Auto) (0.0-0.8) K/mm3 Eos # (Auto) (0.0-0.4) K/mm3 Baso # (Auto) (0.0-0.1) K/mm3 Add Manual Diff Complete Total Counted 100 Seg Neutrophils % (40.0-70.0) % Seg Neuts % (Manual) 92.0 H (40.0-70.0) % Band Neutrophils % 0 % Lymphocytes % (Manual) 4.0 L (13.4-35.0) % Reactive Lymphs % (Man) 0 % Monocytes % (Manual) 4.0 (0.0-7.3) % Eosinophils % (Manual) 0 (0.0-4.3) % Basophils % (Manual) 0 (0.0-1.8) % Metamyelocytes % 0 % Myelocytes % 0 % Promyelocytes % 0 % Blast Cells % 0 % Nucleated RBC % Not Reportable Seg Neutrophils # (1.8-7.7) K/mm3 Seg Neutrophils # Man 18.6 H (1.8-7.7) K/mm3 Band Neutrophils # 0.0 K/mm3 Lymphocytes # (Manual) 0.8 L (1.2-5.4) K/mm3 Abs React Lymphs (Man) 0.0 K/mm3 Monocytes # (Manual) 0.8 (0.0-0.8) K/mm3 Eosinophils # (Manual) 0.0 (0.0-0.4) K/mm3 Basophils # (Manual) 0.0 (0.0-0.1) K/mm3 Metamyelocytes # 0.0 K/mm3 Myelocytes # 0.0 K/mm3 Promyelocytes # 0.0 K/mm3 Blast Cells # 0.0 K/mm3 WBC Morphology Not Reportable Hypersegmented Neuts Not Reportable Hyposegmented Neuts Not Reportable Hypogranular Neuts Not Reportable Smudge Cells Not Reportable Toxic Granulation Not Reportable Toxic Vacuolation Not Reportable Dohle Bodies Not Reportable Pelger-Huet Anomaly Not Reportable Nica Rods Not Reportable Platelet Estimate Consistent w auto Clumped Platelets Not Reportable Plt Clumps, EDTA Not Reportable Large Platelets Few Giant Platelets Not Reportable Platelet Satelliting Not Reportable Plt Morphology Comment Not Reportable RBC Morphology Not Reportable Dimorphic RBCs Not Reportable Polychromasia 1+ Hypochromasia Not Reportable Poikilocytosis Not Reportable Anisocytosis Not Reportable Microcytosis Not Reportable Macrocytosis Not Reportable Spherocytes Not Reportable Pappenheimer Bodies Not Reportable Sickle Cells Not Reportable Target Cells 1+ Tear Drop Cells Few Ovalocytes Not Reportable Helmet Cells Not Reportable [place] Bodies Not Reportable [place] Rings Not Reportable [place] Cells 1+ Bite Cells Not Reportable Crenated Cell Not Reportable Elliptocytes 1+ Acanthocytes (Spur) 2+ Rouleaux Not Reportable Hemoglobin C Crystals Not Reportable Schistocytes Not Reportable Malaria parasites Not Reportable Josh Bodies Not Reportable Hem Pathologist Commnt No Sodium (137-145) mmol/L Potassium (3.6-5.0) mmol/L Chloride (98-107) mmol/L Carbon Dioxide (22-30) mmol/L Anion Gap mmol/L BUN (9-20) mg/dL Creatinine (0.8-1.3) mg/dL Estimated GFR ml/min BUN/Creatinine Ratio % Glucose (75-100) mg/dL Calcium (8.4-10.2) mg/dL Total Bilirubin (0.1-1.2) mg/dL AST (5-40) units/L ALT (7-56) units/L Alkaline Phosphatase (35-129) units/L Troponin T 0.114 H* (0.00-0.029) ng/mL NT-Pro-B Natriuret Pep (0-900) pg/mL Total Protein (6.3-8.2) g/dL Albumin (3.9-5) g/dL Albumin/Globulin Ratio % Triglycerides (2-149) mg/dL Cholesterol (50-199) mg/dL LDL Cholesterol Direct (50-130) mg/dL HDL Cholesterol (40-59) mg/dL Cholesterol/HDL Ratio % Urine Opiates Screen Presumptive negative Urine Methadone Screen Presumptive negative Ur Barbiturates Screen Presumptive negative Ur Phencyclidine Scrn Presumptive negative Ur Amphetamines Screen Presumptive negative U Benzodiazepines Scrn Presumptive negative Urine Cocaine Screen Presumptive positive U Marijuana (THC) Screen Presumptive positive Drugs of Abuse Note Disclamer Plasma/Serum Alcohol (0-0.07) % 01/09/22 Range/Units 05:19 WBC (4.5-11.0) K/mm3 RBC (3.65-5.03) M/mm3 Hgb (11.8-15.2) gm/dl Hct (35.5-45.6) % MCV (84-94) fl MCH (28-32) pg MCHC (32-34) % RDW (13.2-15.2) % Plt Count (140-440) K/mm3 Lymph % (Auto) (13.4-35.0) % Garden % (Auto) (0.0-7.3) % Eos % (Auto) (0.0-4.3) % Baso % (Auto) (0.0-1.8) % Lymph # (Auto) (1.2-5.4) K/mm3 Garden # (Auto) (0.0-0.8) K/mm3 Eos # (Auto) (0.0-0.4) K/mm3 Baso # (Auto) (0.0-0.1) K/mm3 Add Manual Diff Total Counted Seg Neutrophils % (40.0-70.0) % Seg Neuts % (Manual) (40.0-70.0) % Band Neutrophils % % Lymphocytes % (Manual) (13.4-35.0) % Reactive Lymphs % (Man) % Monocytes % (Manual) (0.0-7.3) % Eosinophils % (Manual) (0.0-4.3) % Basophils % (Manual) (0.0-1.8) % Metamyelocytes % % Myelocytes % % Promyelocytes % % Blast Cells % % Nucleated RBC % Seg Neutrophils # (1.8-7.7) K/mm3 Seg Neutrophils # Man (1.8-7.7) K/mm3 Band Neutrophils # K/mm3 Lymphocytes # (Manual) (1.2-5.4) K/mm3 Abs React Lymphs (Man) K/mm3 Monocytes # (Manual) (0.0-0.8) K/mm3 Eosinophils # (Manual) (0.0-0.4) K/mm3 Basophils # (Manual) (0.0-0.1) K/mm3 Metamyelocytes # K/mm3 Myelocytes # K/mm3 Promyelocytes # K/mm3 Blast Cells # K/mm3 WBC Morphology Hypersegmented Neuts Hyposegmented Neuts Hypogranular Neuts Smudge Cells Toxic Granulation Toxic Vacuolation Dohle Bodies Pelger-Huet Anomaly Nica Rods Platelet Estimate Clumped Platelets Plt Clumps, EDTA Large Platelets Giant Platelets Platelet Satelliting Plt Morphology Comment RBC Morphology Dimorphic RBCs Polychromasia Hypochromasia Poikilocytosis Anisocytosis Microcytosis Macrocytosis Spherocytes Pappenheimer Bodies Sickle Cells Target Cells Tear Drop Cells Ovalocytes Helmet Cells [place] Bodies [place] Rings [place] Cells Bite Cells Crenated Cell Elliptocytes Acanthocytes (Spur) Rouleaux Hemoglobin C Crystals Schistocytes Malaria parasites Josh Bodies Hem Pathologist Commnt Sodium 130 L (137-145) mmol/L Potassium 6.9 H* D (3.6-5.0) mmol/L Chloride 97.9 L (98-107) mmol/L Carbon Dioxide 17 L (22-30) mmol/L Anion Gap 22 mmol/L BUN 68 H (9-20) mg/dL Creatinine 3.2 H (0.8-1.3) mg/dL Estimated GFR 24 ml/min BUN/Creatinine Ratio 21 % Glucose 166 H (75-100) mg/dL Calcium 8.2 L (8.4-10.2) mg/dL Total Bilirubin 1.10 (0.1-1.2) mg/dL AST 3638 H (5-40) units/L ALT 1918 H (7-56) units/L Alkaline Phosphatase 133 H (35-129) units/L Troponin T 0.100 H (0.00-0.029) ng/mL NT-Pro-B Natriuret Pep (0-900) pg/mL Total Protein 6.4 (6.3-8.2) g/dL Albumin 4.0 (3.9-5) g/dL Albumin/Globulin Ratio 1.7 % Triglycerides (2-149) mg/dL Cholesterol (50-199) mg/dL LDL Cholesterol Direct (50-130) mg/dL HDL Cholesterol (40-59) mg/dL Cholesterol/HDL Ratio % Urine Opiates Screen Urine Methadone Screen Ur Barbiturates Screen Ur Phencyclidine Scrn Ur Amphetamines Screen U Benzodiazepines Scrn Urine Cocaine Screen U Marijuana (THC) Screen Drugs of Abuse Note Plasma/Serum Alcohol (0-0.07) % CBC 01/09/22 Range/Units 05:19 WBC 20.2 H (4.5-11.0) K/mm3 RBC 4.50 (3.65-5.03) M/mm3 Hgb 13.5 (11.8-15.2) gm/dl Hct 40.4 D (35.5-45.6) % Plt Count 141 (140-440) K/mm3 Comprehensive Metabolic Panel 01/09/22 Range/Units 05:19 Sodium 130 L (137-145) mmol/L Potassium 6.9 H* D (3.6-5.0) mmol/L Chloride 97.9 L (98-107) mmol/L Carbon Dioxide 17 L (22-30) mmol/L BUN 68 H (9-20) mg/dL Creatinine 3.2 H (0.8-1.3) mg/dL Glucose 166 H (75-100) mg/dL Calcium 8.2 L (8.4-10.2) mg/dL AST 3638 H (5-40) units/L ALT 1918 H (7-56) units/L Alkaline Phosphatase 133 H (35-129) units/L Total Protein 6.4 (6.3-8.2) g/dL Albumin 4.0 (3.9-5) g/dL - Imaging and Cardiology Echo: pending, report reviewed - Telemetry EKG Rhythm: Sinus Rhythm - EKG Sinus rhythms and dysrhythmias: sinus rhythm Chamber hypertrophy or enlargement: left ventricular hypertro Repolarization changes or abnormalities: repolarization abn secondary to ventricular hypertrophy (Tall T wave)
[2022-01-09] MEDS: APIXABAN 5 MG TAB PO SCH ×3 (13:05→23:53)
[2022-01-09] MEDS: ASPIRIN 81 MG TAB CHEW PO SCH (13:05)
[2022-01-09] MEDS: ACETAMINOPHEN 325 MG TAB PO PRN (13:05)
[2022-01-09] MEDS: PANTOPRAZOLE 20 MG TAB PO SCH (13:06)
[2022-01-09] MEDS: FUROSEMIDE 40 MG TAB PO SCH (13:06)
--- NOTE | 2022-01-09 13:16 | Consultation ---
History of Present Illness - Reason for Consult acute renal failure - History of Present Illness 61-year-old -Citizen Of The [place] male with past medical history of chronic kidney disease stage IIIb in the setting of hypertension, diabetes, history of congestive heart failure, who is very noncompliant with following up with regular medical care, presented to emergency department secondary to worsening shortness of breath with concerns for acute on chronic heart failure exacerbation. Nephrology consult in for concerns of acute inhury on chronic kidney disease. patient has not followed up consistently with our office. We have seen him on multiple admissions secondary to pneumonia and fluid overload in the past along with underlying acute kidney injury. Labs reviewed this morning. Past History Past Medical History: DVT, heart failure, hypertension, renal failure Past Surgical History: No surgical history Social history: alcohol abuse, other (Drug abuse cocaine) Family history: hypertension Medications and Allergies Allergies Allergy/AdvReac Type Severity Reaction Status Date / Time No Known Allergies Allergy Verified 08/06/21 18:20 Home Medications Medication Instructions Recorded Confirmed Last Taken Type Albuterol Mdi (or & Nicu Only) 2 puff IH QID PRN #8.5 gram 08/07/21 01/08/22 Unknown Rx [ProAir HFA Inhaler] Apixaban [Eliquis] 5 mg PO Q12HR 30 Days #60 tablet 08/07/21 01/08/22 Unknown Rx Aspirin [Aspirin BABY CHEW TAB] 81 mg PO QDAY 30 Days #30 tab.chew 08/07/21 01/08/22 Unknown Rx AtorvaSTATin [Lipitor] 40 mg PO QHS 30 Days #30 tablet 08/07/21 01/08/22 Unknown Rx Furosemide [Lasix TAB] 40 mg PO QDAY #30 tablet 08/07/21 01/08/22 Unknown Rx ISOSORBIDE MONOnitrate [Imdur ER] 30 mg PO QDAY #30 tablet 08/07/21 01/08/22 Unknown Rx Metoprolol [Lopressor TAB] 50 mg PO BID #60 tablet 08/07/21 01/08/22 Unknown Rx Omeprazole 20 mg PO QDAY #30 tab. 08/07/21 01/08/22 Unknown Rx amLODIPine 10 mg PO QDAY 30 Days #30 tablet 08/07/21 01/08/22 Unknown Rx Active Meds: Active Medications Acetaminophen (Acetaminophen 325 Mg Tab) 650 mg PO Q4H PRN PRN Reason: Pain MILD(1-3)/Fever >100.5/CROOKS Last Admin: 01/09/22 13:05 Dose: 650 mg Albuterol (Albuterol 2.5 Mg/3 Ml Nebu) 2.5 mg IH Q4H PRN PRN Reason: Shortness Of Breath Amlodipine Besylate (Amlodipine 10 Mg Tab) 10 mg PO QDAY [facility] Last Admin: 01/08/22 16:02 Dose: 10 mg Apixaban (Apixaban 5 Mg Tab) 5 mg PO Q12HR [facility] Last Admin: 01/09/22 13:05 Dose: 5 mg Aspirin (Aspirin 81 Mg Tab Chew) 81 mg PO QDAY [facility] Last Admin: 01/09/22 13:05 Dose: 81 mg Furosemide (Furosemide 40 Mg Tab) 40 mg PO QDAY [facility] Last Admin: 01/09/22 13:06 Dose: 40 mg Hydralazine HCl (Hydralazine 20 Mg/1 Ml Inj) 10 mg IV Q6H PRN PRN Reason: Blood Pressure Last Admin: 01/08/22 22:53 Dose: 10 mg Sodium Chloride (Nacl 0.9% 1000 Ml) 1,000 mls @ 75 mls/hr IV DIRECT [facility] Isosorbide Mononitrate (Isosorbide Mononitrate Er 30 Mg Tab) 30 mg PO QDAY [facility] Last Admin: 01/09/22 13:06 Dose: 30 mg Metoclopramide HCl (Metoclopramide 10 Mg/2 Ml Inj) 5 mg IV Q6H PRN PRN Reason: Nausea And Vomiting Morphine Sulfate (Morphine 2 Mg/1 Ml Inj) 2 mg IV Q4H PRN PRN Reason: Pain, Moderate (4-6) Ondansetron HCl (Ondansetron 4 Mg/2 Ml Inj) 4 mg IV Q8H PRN PRN Reason: Nausea And Vomiting Oxycodone/Acetaminophen (Oxycodone /Acetaminophen 5-325mg Tab) 1 tab PO Q6H PRN PRN Reason: Pain, Moderate (4-6) Last Admin: 01/08/22 18:15 Dose: 1 tab Pantoprazole Sodium (Pantoprazole 20 Mg Tab) 20 mg PO QDAY [facility] Last Admin: 01/09/22 13:06 Dose: 20 mg Sodium Chloride (Sodium Chloride 0.9% 10 Ml Flush Syringe) 10 ml IV BID [facility] Last Admin: 01/09/22 13:11 Dose: 10 ml Sodium Chloride (Sodium Chloride 0.9% 10 Ml Flush Syringe) 10 ml IV PRN PRN PRN Reason: LINE FLUSH Sodium Polystyrene Sulfonate (Sodium Polystyrene 15 Gm/60 Ml Oral Liqd) 30 gm PO ONCE ONE Stop: 01/09/22 13:11 Review of Systems Constitutional: fatigue, weakness Cardiovascular: orthopnea Exam - Vital Signs Vital signs: Vital Signs Temp Pulse Resp BP Pulse Ox 98.8 F 100 H 18 159/100 100 01/08/22 03:15 01/08/22 03:15 01/08/22 03:15 01/08/22 03:15 01/08/22 03:15 - General Appearance General appearance: well-developed EENT: ATNC Neck: Present: neck supple Respiratory: Decreased Breath Sounds Heart: regular Gastrointestinal: Present: normal Integumentary: no rash Neurologic: no focal deficit Musculoskeletal: Present: deferred Psychiatric: cooperative Results - Lab Results 01/09/22 05:19 01/09/22 05:19 Most recent lab results Calcium 8.2 mg/dL (8.4-10.2) L 01/09/22 05:19 Assessment and Plan - Patient Problems (1) Acute on chronic renal insufficiency Current Visit: Yes Status: Acute Plan to address problem: possibly in the setting of acute on chronic cardiorenal syndrome. Agree with gentle diuresis. Avoid nephrotoxins and maintain mean arterial pressures above 65 mmHg. We will continue to monitor closely at this time. We will obtain urine electrolytes to further evaluation along with urinalysis. (2) Hyperkalemia Current Visit: No Status: Chronic Plan to address problem: Will give a dose of Kayexalate 30 g today. Anticipate improved potassium excretion with appropriate diuresis. We will continue to monitor closely. Please maintain patient on low potassium diet. (3) Acute on chronic heart failure Current Visit: Yes Status: Chronic Plan to address problem: cardiology evaluation reviewed and echocardiogram reading pending at this time. Continue with current diuretic regimen. Counseled patient on the importance of maintaining a low sodium diet. Consultation importance of compliance in general with his overall medical therapy and appropriate follow-up with his physicians. (4) HTN (hypertension) Current Visit: No Status: Chronic Qualifiers: Hypertension type: essential hypertension Qualified Code(s): I10 - Essential (primary) hypertension Plan to address problem: monitor blood pressure on current regimen. (5) Medical non-compliance Current Visit: No Status: Chronic Plan to address problem: counseled patient on the importance of compliance with overall medical care.
[2022-01-09] MEDS ORDERED: SODIUM POLYSTYRENE 15 GM/60 ML ORAL LIQD PO SCH (14:00)
[2022-01-09 14:30] LABS: Hepatitis B Surface Antigen Non-Reactive (Negative); Hepatitis C Virus Antibody Non-Reactive (NonReactive)
--- NOTE | 2022-01-09 16:42 | Ultrasound Report ---
ULTRASOUND ABDOMEN, COMPLETE INDICATION / CLINICAL INFORMATION: Liver failure/acute hepatitis. COMPARISON: CT chest abdomen pelvis 08/28/2020. FINDINGS: PANCREAS: The pancreatic tail is not well-visualized secondary to overlying bowel gas. The remainder the pancreas demonstrates no significant abnormality. ABDOMINAL AORTA: No significant abnormality. IVC: Moderately dilated. LIVER: The liver is normal in size measuring 15.1 cm with diffusely heterogeneous appearance. The jayshree n portal vein is not well-visualized. GALLBLADDER: A moderate amount of sludge is noted in the gallbladder area no evidence of gallstones, wall thickening, or pericholecystic fluid. BILE DUCTS: No significant abnormality. Common bile duct measures 3 mm. KIDNEYS: Right: The right kidney measures 8.2 cm. No significant abnormality. Left: The left kidney measures 8.9 cm. No significant abnormality. SPLEEN: The spleen measures 7.5 cm. No significant abnormality. FREE FLUID: None. ADDITIONAL FINDINGS: None. IMPRESSION: 1. Diffusely heterogeneous appearance of the liver, most commonly seen with steatosis or other underl marck hepatocellular disease. 2. Moderate amount of sludge noted in the gallbladder. No evidence of gallstones. 3. Moderately dilated IVC suggest increased right heart pressure. Scribed by: Vashti Escobedo RDMS, LATOYA, GALA Scribed: 01/09/2022 3:34 PM I have reviewed the images, agree with this report, and edited this report as needed. Signer Name: Harsh Lilly MD Signed: 01/09/2022 4:38 PM Workstation Name: [employer]
[2022-01-10 04:54] LABS: Hematocrit 42.3 % (35.5-45.6); Hemoglobin 13.5 gm/dl (11.8-15.2); Mean Corpuscular HGB Conc 32 % (32-34); Mean Corpuscular Volume 91 fl (84-94); Platelet Count 141 K/mm3 (140-440); Red Blood Count 4.64 M/mm3 (3.65-5.03); Red Cell Distribution Width 17.2 % (13.2-15.2)
[2022-01-10 05:15] LABS: Albumin 3.7 g/dL (3.9-5); Calcium 8.4 mg/dL (8.4-10.2)
[2022-01-10 05:35] LABS: Basophils % (Manual) 0 % (0.0-1.8); Eosinophils % (Manual) 0 % (0.0-4.3); Total Cells Counted 100
[2022-01-10 05:36] LABS: Platelet Estimate Consistent w Auto
--- NOTE | 2022-01-10 09:33 | Progress Note ---
Assessment and Plan Assessment and plan: --Leukocytosis Patient with significant WBC. No reported fevers Chest x-ray negative for pneumonia Check urinalysis and blood cultures severe hyperkalemia; S/p calcium gluconate 2 g IV x1, Kayexalate 30 g x 1 dose on 01/10/2020 Improved Closely monitor electrolytes Nephrology consulted --Acute on chronic kidney disease : Acute on chronic cardiorenal syndrome. Gentle hydration, monitor renal function, avoid nephrotoxins Renal dosing of medications Nephrology consulted --Non-ST elevation TN ; Probably nonspecific type II Secondary to acute kidney injury, cocaine abuse Serial cardiac enzymes, serial EKGs Echo reduced EF 25-30% Cardiology following --Acute on chronic combined systolic and diastolic congestive heart failure 05/2020] [EF 20 to 25%, 08/06/2021; LVEF is 50 to 55% Gentle diuresis, beta-blockers, no RENEA inhibitor's due to kidney disease Input output monitoring, fluid restriction, low-sodium diet 01/08/2022--Echocardiogram reveals left ventricular normal size and systolic function severely decreased, severe global hypokinesis with LVEF 25-30%. Patient also has mild concentric left ventricular hypertrophy. -- Hypertensive urgency; mild improvement Continue current antihypertensives as needed hydralazine Closely monitor --Acute liver failure: Acute hepatitis LFTs in the thousands ,probably alcohol and drug induced Check hepatitis panel, abdominal ultrasound reveals diffusely heterogeneous appearance to the liver findings consistent with steatosis, moderate amount of sludge in the gallbladder but no evidence of gallstones. Dilated IVC suggestive of right heart pressure Closely monitor LFTs --History of lower extremity DVT; On Eliquis, continue 5 mg p.o. twice a day Elevate the limb supportive care --polysubstance abuse; Marijuana, cocaine, alcohol Patient strongly counseled to quit recreational drug use And to quit alcohol intake --DVT prophylaxis; SCDs, patient is on Eliquis History Interval history: No new issues overnight Hospitalist Physical - Constitutional Vitals: Temp Pulse Resp BP Pulse Ox 97.9 F 79 16 121/75 96 01/10/22 07:38 01/10/22 07:38 01/10/22 07:38 01/10/22 07:38 01/10/22 07:38 General appearance: Present: no acute distress, well-nourished - EENT Eyes: Present: PERRL, EOM intact ENT: hearing intact, clear oral mucosa, dentition normal - Neck Neck: Present: supple, normal ROM - Respiratory Respiratory effort: normal Respiratory: bilateral: CTA - Cardiovascular Rhythm: regular Heart Sounds: Present: S1 & S2. Absent: gallop, rub - Extremities Extremities: no ischemia, No edema, Full ROM - Abdominal General gastrointestinal: soft, non-tender, non-distended, normal bowel sounds - Integumentary Integumentary: Present: clear, warm, dry - Neurologic Neurologic: CNII-XII intact, moves all extremities HEART Score - HEART Score Troponin: Troponin T 0.100 ng/mL (0.00-0.029) H 01/09/22 05:19 Results - Labs CBC & Chem 7: 01/10/22 03:48 01/10/22 03:48 Labs: Laboratory Last Values WBC 22.6 K/mm3 (4.5-11.0) H 01/10/22 03:48 RBC 4.64 M/mm3 (3.65-5.03) 01/10/22 03:48 Hgb 13.5 gm/dl (11.8-15.2) 01/10/22 03:48 Hct 42.3 % (35.5-45.6) 01/10/22 03:48 MCV 91 fl (84-94) 01/10/22 03:48 MCH 29 pg (28-32) 01/10/22 03:48 MCHC 32 % (32-34) 01/10/22 03:48 RDW 17.2 % (13.2-15.2) H 01/10/22 03:48 Plt Count 141 K/mm3 (140-440) 01/10/22 03:48 Lymph % (Auto) 14.4 % (13.4-35.0) 01/08/22 08:53 [place] % (Auto) 9.5 % (0.0-7.3) H 01/08/22 08:53 Eos % (Auto) 0.1 % (0.0-4.3) 01/08/22 08:53 Baso % (Auto) 0.3 % (0.0-1.8) 01/08/22 08:53 Lymph # (Auto) 1.9 K/mm3 (1.2-5.4) 01/08/22 08:53 [place] # (Auto) 1.2 K/mm3 (0.0-0.8) H 01/08/22 08:53 Eos # (Auto) 0.0 K/mm3 (0.0-0.4) 01/08/22 08:53 Baso # (Auto) 0.0 K/mm3 (0.0-0.1) 01/08/22 08:53 Add Manual Diff Complete 01/10/22 03:48 Total Counted 100 01/10/22 03:48 Seg Neutrophils % Leather Sprayer 01/10/22 03:48 Seg Neuts % (Manual) 95.0 % (40.0-70.0) H 01/10/22 03:48 Band Neutrophils % 0 % 01/10/22 03:48 Lymphocytes % (Manual) 2.0 % (13.4-35.0) L 01/10/22 03:48 Reactive Lymphs % (Man) 0 % 01/10/22 03:48 Monocytes % (Manual) 3.0 % (0.0-7.3) 01/10/22 03:48 Eosinophils % (Manual) 0 % (0.0-4.3) 01/10/22 03:48 Basophils % (Manual) 0 % (0.0-1.8) 01/10/22 03:48 Metamyelocytes % 0 % 01/10/22 03:48 Myelocytes % 0 % 01/10/22 03:48 Promyelocytes % 0 % 01/10/22 03:48 Blast Cells % 0 % 01/10/22 03:48 Nucleated RBC % Not Reportable 01/10/22 03:48 Seg Neutrophils # 9.9 K/mm3 (1.8-7.7) H 01/08/22 08:53 Seg Neutrophils # Man 21.5 K/mm3 (1.8-7.7) H 01/10/22 03:48 Band Neutrophils # 0.0 K/mm3 01/10/22 03:48 Lymphocytes # (Manual) 0.5 K/mm3 (1.2-5.4) L 01/10/22 03:48 Abs React Lymphs (Man) 0.0 K/mm3 01/10/22 03:48 Monocytes # (Manual) 0.7 K/mm3 (0.0-0.8) 01/10/22 03:48 Eosinophils # (Manual) 0.0 K/mm3 (0.0-0.4) 01/10/22 03:48 Basophils # (Manual) 0.0 K/mm3 (0.0-0.1) 01/10/22 03:48 Metamyelocytes # 0.0 K/mm3 01/10/22 03:48 Myelocytes # 0.0 K/mm3 01/10/22 03:48 Promyelocytes # 0.0 K/mm3 01/10/22 03:48 Blast Cells # 0.0 K/mm3 01/10/22 03:48 WBC Morphology Not Reportable 01/10/22 03:48 Hypersegmented Neuts Not Reportable 01/10/22 03:48 Hyposegmented Neuts Not Reportable 01/10/22 03:48 Hypogranular Neuts Not Reportable 01/10/22 03:48 Smudge Cells Not Reportable 01/10/22 03:48 Toxic Granulation Not Reportable 01/10/22 03:48 Toxic Vacuolation Not Reportable 01/10/22 03:48 Dohle Bodies Not Reportable 01/10/22 03:48 Pelger-Huet Anomaly Not Reportable 01/10/22 03:48 Nica Rods Not Reportable 01/10/22 03:48 Platelet Estimate Consistent w auto 01/10/22 03:48 Clumped Platelets Not Reportable 01/10/22 03:48 Plt Clumps, EDTA Not Reportable 01/10/22 03:48 Large Platelets Not Reportable 01/10/22 03:48 Giant Platelets Not Reportable 01/10/22 03:48 Platelet Satelliting Not Reportable 01/10/22 03:48 Plt Morphology Comment Not Reportable 01/10/22 03:48 RBC Morphology Not Reportable 01/10/22 03:48 Dimorphic RBCs Not Reportable 01/10/22 03:48 Polychromasia Not Reportable 01/10/22 03:48 Hypochromasia Not Reportable 01/10/22 03:48 Poikilocytosis Not Reportable 01/10/22 03:48 Anisocytosis Not Reportable 01/10/22 03:48 Microcytosis Not Reportable 01/10/22 03:48 Macrocytosis Not Reportable 01/10/22 03:48 Spherocytes Not Reportable 01/10/22 03:48 Pappenheimer Bodies Not Reportable 01/10/22 03:48 Sickle Cells Not Reportable 01/10/22 03:48 Target Cells Not Reportable 01/10/22 03:48 Tear Drop Cells Not Reportable 01/10/22 03:48 Ovalocytes Not Reportable 01/10/22 03:48 Helmet Cells Not Reportable 01/10/22 03:48 [place] Bodies Not Reportable 01/10/22 03:48 [place] Rings Not Reportable 01/10/22 03:48 [place] Cells Not Reportable 01/10/22 03:48 Bite Cells Not Reportable 01/10/22 03:48 Crenated Cell Not Reportable 01/10/22 03:48 Elliptocytes Not Reportable 01/10/22 03:48 Acanthocytes (Spur) Not Reportable 01/10/22 03:48 Rouleaux Not Reportable 01/10/22 03:48 Hemoglobin C Crystals Not Reportable 01/10/22 03:48 Schistocytes Not Reportable 01/10/22 03:48 Malaria parasites Not Reportable 01/10/22 03:48 Josh Bodies Not Reportable 01/10/22 03:48 Hem Pathologist Commnt No 01/10/22 03:48 Sodium 136 mmol/L (137-145) L 01/10/22 03:48 Potassium 4.8 mmol/L (3.6-5.0) 01/10/22 03:48 Chloride 102.3 mmol/L (98-107) 01/10/22 03:48 Carbon Dioxide 18 mmol/L (22-30) L 01/10/22 03:48 Anion Gap 21 mmol/L 01/10/22 03:48 BUN 78 mg/dL (9-20) H 01/10/22 03:48 Creatinine 3.1 mg/dL (0.8-1.3) H 01/10/22 03:48 Estimated GFR 25 ml/min 01/10/22 03:48 BUN/Creatinine Ratio 25 % 01/10/22 03:48 Glucose 139 mg/dL (75-100) H 01/10/22 03:48 Calcium 8.4 mg/dL (8.4-10.2) 01/10/22 03:48 Magnesium 2.40 mg/dL (1.7-2.3) H 01/10/22 03:48 Total Bilirubin 0.90 mg/dL (0.1-1.2) 01/10/22 03:48 AST 1043 units/L (5-40) H 01/10/22 03:48 ALT 1392 units/L (7-56) H 01/10/22 03:48 Alkaline Phosphatase 128 units/L (35-129) 01/10/22 03:48 Troponin T 0.100 ng/mL (0.00-0.029) H 01/09/22 05:19 NT-Pro-B Natriuret Pep 42233 pg/mL (0-900) H 01/08/22 08:53 Total Protein 6.2 g/dL (6.3-8.2) L 01/10/22 03:48 Albumin 3.7 g/dL (3.9-5) L 01/10/22 03:48 Albumin/Globulin Ratio 1.5 % 01/10/22 03:48 Triglycerides 92 mg/dL (2-149) 01/08/22 08:53 Cholesterol 152 mg/dL (50-199) 01/08/22 08:53 LDL Cholesterol Direct 80 mg/dL (50-130) 01/08/22 08:53 HDL Cholesterol 58 mg/dL (40-59) 01/08/22 08:53 Cholesterol/HDL Ratio 2.62 % 01/08/22 08:53 Urine Opiates Screen Presumptive negative 01/08/22 17:15 Urine Methadone Screen Presumptive negative 01/08/22 17:15 Ur Barbiturates Screen Presumptive negative 01/08/22 17:15 Ur Phencyclidine Scrn Presumptive negative 01/08/22 17:15 Ur Amphetamines Screen Presumptive negative 01/08/22 17:15 U Benzodiazepines Scrn Presumptive negative 01/08/22 17:15 Urine Cocaine Screen Presumptive positive 01/08/22 17:15 U Marijuana (THC) Screen Presumptive positive 01/08/22 17:15 Drugs of Abuse Note Disclamer 01/08/22 17:15 Plasma/Serum Alcohol < 0.01 % (0-0.07) 01/08/22 12:13 Hepatitis A IgM Ab Non-reactive (NonReactive) 01/09/22 08:45 Hep Bs Antigen Non-reactive (Negative) 01/09/22 08:45 Hep B Core IgM Ab Non-reactive (NonReactive) 01/09/22 08:45 Hepatitis C Antibody Non-reactive (NonReactive) 01/09/22 08:45 Diego/IV: Voiding Method Toilet Active Medications - Current Medications Current Medications: Generic Name Dose Route Start Last Admin Trade Name Freq PRN Reason Stop Dose Admin Acetaminophen 650 mg 01/08/22 14:22 01/09/22 13:05 Acetaminophen 325 Mg Tab PO 650 mg Q4H PRN Administration Pain MILD(1-3)/Fever >100.5/CROOKS Albuterol 2.5 mg 01/08/22 15:00 Albuterol 2.5 Mg/3 Ml Nebu IH Q4H PRN Shortness Of Breath Amlodipine Besylate 10 mg 01/08/22 16:00 01/09/22 10:00 Amlodipine 10 Mg Tab PO Not Given QDAY SURYA Apixaban 5 mg 01/08/22 22:00 01/09/22 23:53 Apixaban 5 Mg Tab PO 5 mg Q12HR SURYA Administration Aspirin 81 mg 01/09/22 10:00 01/09/22 13:05 Aspirin 81 Mg Tab Chew PO 81 mg QDAY SURYA Administration Furosemide 40 mg 01/09/22 10:00 01/09/22 13:06 Furosemide 40 Mg Tab PO 40 mg QDAY SURYA Administration Hydralazine HCl 10 mg 01/08/22 22:23 01/08/22 22:53 Hydralazine 20 Mg/1 Ml Inj IV 10 mg Q6H PRN Administration Blood Pressure Sodium Chloride 1,000 mls @ 75 mls/hr 01/08/22 14:30 Nacl 0.9% 1000 Ml IV DIRECT SURYA Isosorbide Mononitrate 30 mg 01/08/22 16:00 01/09/22 13:06 Isosorbide Mononitrate Er 30 Mg Tab PO 30 mg QDAY SURYA Administration Metoclopramide HCl 5 mg 01/08/22 14:22 Metoclopramide 10 Mg/2 Ml Inj IV Q6H PRN Nausea And Vomiting Morphine Sulfate 2 mg 01/08/22 14:22 Morphine 2 Mg/1 Ml Inj IV Q4H PRN Pain, Moderate (4-6) Ondansetron HCl 4 mg 01/08/22 14:22 Ondansetron 4 Mg/2 Ml Inj IV Q8H PRN Nausea And Vomiting Oxycodone/Acetaminophen 1 tab 01/08/22 14:22 01/08/22 18:15 Oxycodone /Acetaminophen 5-325mg Tab PO 1 tab Q6H PRN Administration Pain, Moderate (4-6) Pantoprazole Sodium 20 mg 01/08/22 16:00 01/09/22 13:06 Pantoprazole 20 Mg Tab PO 20 mg QDAY SURYA Administration Sodium Chloride 10 ml 01/08/22 22:00 01/09/22 23:57 Sodium Chloride 0.9% 10 Ml Flush Syringe IV 10 ml BID SURYA Administration Sodium Chloride 10 ml 01/08/22 14:22 Sodium Chloride 0.9% 10 Ml Flush Syringe IV PRN PRN LINE FLUSH
--- NOTE | 2022-01-10 11:45 | Progress Note ---
Assessment and Plan Patient is a 61-year-old male with history of hypertension, coronary artery disease, anticoagulation, hyperlipidemia, CHF and GERD comes in for evaluation of shortness of breath. Acute respiratory failure NSTEMI Leukocytosis Acute on chronic HFrEF MU on CKD- Nephrology following Hyperkalemia Elevated LFTs- GI following Crack cocaine use-UDS positive for cocaine Medical noncompliance History of hypertension Hyperlipidemia Echo 01/08/2022-EF 25 to 30%. Severe global hypokinesis of LV. Right ventricle is mildly hypokinetic. Moderate aortic regurgitation. Moderate tricuspid regurgitation. Trace pulmonic regurgitation. Echo 08/06/2021-EF 50 to 55%. Mild concentric LVH. Left ventricular end- diastolic pressure is elevated. Right ventricle is borderline dilated. Right ventricle systolic function is normal. Left atrium mildly dilated. Mild to moderate aortic regurgitation. Trace tricuspid regurgitation Lexiscan MPI stress test 08/30/2020-stress test negative for signs of ischemia Plan: Patient remains chest pain-free Due to significantly decreased EF will plan for ischemic eval however unable to do cardiac cath due to patient's renal function at this time we will plan for stress test in the morning. Patient to be n.p.o. after midnight Patient currently on amlodipine 10 mg p.o. daily, Eliquis, aspirin, atorvastatin 40 mg p.o. nightly, Lasix 40 mg p.o. daily, Imdur 30 mg p.o. daily Will stop amlodipine 10 mg p.o. daily and convert to hydralazine 25 mg p.o. 3 times daily. Will also initiate carvedilol 6.25 mg p.o. twice daily Due to patient's renal function will defer volume management to nephrology Discussed the importance of medication compliance, diet compliant, and cessation of smoking and drug use. Patient verbalized understanding and acknowledgment Patient seen in conjunction with Dr. 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 (6) History of cocaine abuse Current Visit: No Status: Resolved (7) Acute on chronic HFrEF (heart failure with reduced ejection fraction) Current Visit: No Status: Acute (8) Cocaine abuse Current Visit: Yes Status: Chronic (9) Acute on chronic renal insufficiency Current Visit: Yes Status: Acute (10) Noncompliance with medication regimen Current Visit: Yes Status: Acute (11) Hypertensive urgency Current Visit: Yes Status: Acute (12) Acute respiratory failure with hypoxia Current Visit: Yes Status: Acute (13) Acute hepatitis Current Visit: Yes Status: Acute Subjective Date of service: 01/10/22 Principal diagnosis: SOB, NSTEMI, MU, Interval history: Patient resting in bed in no acute distress. Patient appears lethargic. Reports feeling better this AM Sinus 90s on monitor Objective Vital Signs Temp Pulse Resp BP BP Pulse Ox 01/10/22 07:38 97.9 F 79 16 121/75 96 01/10/22 03:53 97.5 F L 72 0 L 128/90 0 L 01/10/22 02:00 87 01/09/22 22:27 97.8 F 75 16 135/92 93 01/09/22 22:00 97 01/09/22 19:17 97.6 F 73 16 120/87 97 01/09/22 18:00 149 H 01/09/22 15:02 98.2 F 75 18 143/91 95 - Physical Examination General: No Apparent Distress HEENT: Positive: Normocephaly Neck: Positive: neck supple. Negative: JVD/HJR Cardiac: Positive: Reg Rate and Rhythm Lungs: Positive: Normal Breath Sounds Neuro: Positive: Grossly Intact Abdomen: Positive: Soft Skin: Negative: Rash Extremities: Absent: edema - Labs and Meds Cardiac Enzymes 01/10/22 Range/Units 03:48 AST 1043 H (5-40) units/L CBC 01/10/22 Range/Units 03:48 WBC 22.6 H (4.5-11.0) K/mm3 RBC 4.64 (3.65-5.03) M/mm3 Hgb 13.5 (11.8-15.2) gm/dl Hct 42.3 (35.5-45.6) % Plt Count 141 (140-440) K/mm3 Comprehensive Metabolic Panel 01/09/22 01/10/22 Range/Units 20:20 03:48 Sodium 136 L (137-145) mmol/L Potassium 5.3 H D 4.8 (3.6-5.0) mmol/L Chloride 102.3 (98-107) mmol/L Carbon Dioxide 18 L (22-30) mmol/L BUN 78 H (9-20) mg/dL Creatinine 3.1 H (0.8-1.3) mg/dL Glucose 139 H (75-100) mg/dL Calcium 8.4 (8.4-10.2) mg/dL AST 1043 H (5-40) units/L ALT 1392 H (7-56) units/L Alkaline Phosphatase 128 (35-129) units/L Total Protein 6.2 L (6.3-8.2) g/dL Albumin 3.7 L (3.9-5) g/dL - Imaging and Cardiology Echo: report reviewed - Telemetry EKG Rhythm: Sinus Rhythm - EKG Sinus rhythms and dysrhythmias: sinus rhythm Chamber hypertrophy or enlargement: left ventricular hypertro Repolarization changes or abnormalities: repolarization abn secondary to ventricular hypertrophy (Tall T wave)
[2022-01-10] MEDS: APIXABAN 5 MG TAB PO SCH ×2 (12:37→22:49)
[2022-01-10] MEDS: carvediloL 6.25 MG TAB PO SCH ×2 (12:37→22:49)
[2022-01-10] MEDS: ASPIRIN 81 MG TAB CHEW PO SCH (12:37)
[2022-01-10] MEDS: ACETAMINOPHEN 325 MG TAB PO PRN (12:38)
[2022-01-10] MEDS: PANTOPRAZOLE 20 MG TAB PO SCH (12:38)
[2022-01-10] MEDS: FUROSEMIDE 40 MG TAB PO SCH (12:38)
[2022-01-10] MEDS: SODIUM CHLORIDE 0.9% 1000 ML 1,000 ML IV SCH (12:47)
--- NOTE | 2022-01-10 12:53 | Progress Note ---
Assessment and Plan - Patient Problems (1) Acute on chronic renal insufficiency Current Visit: Yes Status: Acute Plan to address problem: possibly in the setting of acute on chronic cardiorenal syndrome. Agree with gentle diuresis. Avoid nephrotoxins and maintain mean arterial pressures above 65 mmHg. We will continue to monitor closely at this time. overall renal function remaining stable at this time. (2) Hyperkalemia Current Visit: No Status: Chronic Plan to address problem: patient was given dose of Kayexalate yesterday. his serum potassium levels have shown appropriate improvement at this time. Counseled patient on the importance of maintaining a low potassium diet. (3) Acute on chronic heart failure Current Visit: Yes Status: Chronic Plan to address problem: cardiology evaluation reviewed and results of echocardiogram are reviewed. Plan for stress test in the morning per cardiology evaluation. Continue with current diuretic regimen. Counseled patient on the importance of maintaining a low sodium diet. I reiterated to patient the importance of compliance in general with his overall medical therapy and appropriate follow-up with his physicians. (4) HTN (hypertension) Current Visit: No Status: Chronic Qualifiers: Hypertension type: essential hypertension Plan to address problem: monitor blood pressure on current regimen. (5) Medical non-compliance Current Visit: No Status: Chronic Plan to address problem: counseled patient on the importance of compliance with overall medical care. Subjective Date of service: 01/10/22 Principal diagnosis: SOB, NSTEMI, MU, Interval history: patient seen early this morning. Overall renal function remains stable. Echocardiogram however did show significantly reduced ejection fraction from previous studies. Plan from cardiology standpoint is to set patient up for stress test in the morning. Objective - Vital Signs Vital signs: Vital Signs - 12hr 01/10/22 01/10/22 01/10/22 02:00 03:53 07:38 Temperature 97.5 F L 97.9 F Pulse Rate 87 72 79 Respiratory 0 L 16 Rate Blood Pressure 121/75 Blood Pressure 128/90 [Left] O2 Sat by Pulse 0 L 96 Oximetry 01/10/22 11:33 Temperature 98.7 F Pulse Rate 84 Respiratory 16 Rate Blood Pressure 132/87 Blood Pressure [Left] O2 Sat by Pulse 97 Oximetry - General Appearance General appearance: well-developed, appears stated age EENT: ATNC Neck: no JVD Respiratory: Present: Decreased Breath Sounds Cardiology: regular Gastrointestinal: normal Integumentary: no rash, warm and dry Neurologic: no focal deficit Musculoskeletal: deferred Psychiatric: cooperative - Lab 01/10/22 03:48 01/10/22 03:48 Most recent lab results Calcium 8.4 mg/dL (8.4-10.2) 01/10/22 03:48 Magnesium 2.40 mg/dL (1.7-2.3) H 01/10/22 03:48 - Allied health notes Allied health notes reviewed: nursing Medications & Allergies - Medications Allergies/Adverse Reactions: Allergies No Known Allergies Allergy (Verified 08/06/21 18:20) Home Medications: Home Medications Medication Instructions Recorded Confirmed Last Taken Type Albuterol Mdi (or & Nicu Only) 2 puff IH QID PRN #8.5 gram 08/07/21 01/08/22 Unknown Rx [ProAir HFA Inhaler] Apixaban [Eliquis] 5 mg PO Q12HR 30 Days #60 tablet 08/07/21 01/08/22 Unknown Rx Aspirin [Aspirin BABY CHEW TAB] 81 mg PO QDAY 30 Days #30 tab.chew 08/07/21 01/08/22 Unknown Rx AtorvaSTATin [Lipitor] 40 mg PO QHS 30 Days #30 tablet 08/07/21 01/08/22 Unknown Rx Furosemide [Lasix TAB] 40 mg PO QDAY #30 tablet 08/07/21 01/08/22 Unknown Rx ISOSORBIDE MONOnitrate [Imdur ER] 30 mg PO QDAY #30 tablet 08/07/21 01/08/22 Unknown Rx Metoprolol [Lopressor TAB] 50 mg PO BID #60 tablet 08/07/21 01/08/22 Unknown Rx Omeprazole 20 mg PO QDAY #30 tab.rap.dr 08/07/21 01/08/22 Unknown Rx amLODIPine 10 mg PO QDAY 30 Days #30 tablet 08/07/21 01/08/22 Unknown Rx Active Medications: Generic Name Dose Route Start Last Admin Trade Name Freq PRN Reason Stop Dose Admin Acetaminophen 650 mg 01/08/22 14:22 01/10/22 12:38 Acetaminophen 325 Mg Tab PO 650 mg Q4H PRN Administration Pain MILD(1-3)/Fever >100.5/CROOKS Albuterol 2.5 mg 01/08/22 15:00 Albuterol 2.5 Mg/3 Ml Nebu IH Q4H PRN Shortness Of Breath Apixaban 5 mg 01/08/22 22:00 01/10/22 12:37 Apixaban 5 Mg Tab PO 5 mg Q12HR SURYA Administration Aspirin 81 mg 01/09/22 10:00 01/10/22 12:37 Aspirin 81 Mg Tab Chew PO 81 mg QDAY SURYA Administration Carvedilol 6.25 mg 01/10/22 12:00 01/10/22 12:37 Carvedilol 6.25 Mg Tab PO 6.25 mg BID SURYA Administration Furosemide 40 mg 01/09/22 10:00 01/10/22 12:38 Furosemide 40 Mg Tab PO 40 mg QDAY SURYA Administration Hydralazine HCl 10 mg 01/08/22 22:23 01/08/22 22:53 Hydralazine 20 Mg/1 Ml Inj IV 10 mg Q6H PRN Administration Blood Pressure Hydralazine HCl 25 mg 01/10/22 14:00 Hydralazine 25 Mg Tab PO Q8HR SURYA Sodium Chloride 1,000 mls @ 75 mls/hr 01/08/22 14:30 01/10/22 12:47 Nacl 0.9% 1000 Ml IV 75 mls/hr DIRECT SURYA Administration Isosorbide Mononitrate 30 mg 01/08/22 16:00 01/10/22 12:43 Isosorbide Mononitrate Er 30 Mg Tab PO 30 mg QDAY SURYA Administration Metoclopramide HCl 5 mg 01/08/22 14:22 Metoclopramide 10 Mg/2 Ml Inj IV Q6H PRN Nausea And Vomiting Morphine Sulfate 2 mg 01/08/22 14:22 Morphine 2 Mg/1 Ml Inj IV Q4H PRN Pain, Moderate (4-6) Ondansetron HCl 4 mg 01/08/22 14:22 Ondansetron 4 Mg/2 Ml Inj IV Q8H PRN Nausea And Vomiting Oxycodone/Acetaminophen 1 tab 01/08/22 14:22 01/08/22 18:15 Oxycodone /Acetaminophen 5-325mg Tab PO 1 tab Q6H PRN Administration Pain, Moderate (4-6) Pantoprazole Sodium 20 mg 01/08/22 16:00 01/10/22 12:38 Pantoprazole 20 Mg Tab PO 20 mg QDAY SURYA Administration Sodium Chloride 10 ml 01/08/22 22:00 01/10/22 12:39 Sodium Chloride 0.9% 10 Ml Flush Syringe IV 10 ml BID SURYA Administration Sodium Chloride 10 ml 01/08/22 14:22 Sodium Chloride 0.9% 10 Ml Flush Syringe IV PRN PRN LINE FLUSH
--- NOTE | 2022-01-10 13:37 | Gastroenterology Progress Note ---
Assessment and Plan Acute hepatitis panel negative LFTs improving. Presentation most consistent with ischemic hepatitis due to patient's acute cardiac issues as well as admitted cocaine use. Rest of differential diagnosis includes medication related, infectious, etc. GI will sign off please call us back if we can be of any further assistance - Patient Problems (1) Acute hepatitis Current Visit: Yes Status: Acute (2) Acute on chronic HFrEF (heart failure with reduced ejection fraction) Current Visit: No Status: Acute (3) History of cocaine abuse Current Visit: No Status: Resolved Subjective Date of service: 01/10/22 Principal diagnosis: SOB, NSTEMI, MU, Interval history: patient reports feeling well this AM, no abd pain, no GI complaints Objective - Constitutional Vitals: Temp Pulse Resp BP Pulse Ox 98.7 F 84 16 132/87 97 01/10/22 11:33 01/10/22 11:33 01/10/22 11:33 01/10/22 11:33 01/10/22 11:33 General appearance: no acute distress - EENT Eyes: EOM intact ENT: hearing intact - Neck Neck: supple - Respiratory Respiratory effort: normal - Gastrointestinal General gastrointestinal: Present: soft, non-tender - Integumentary Integumentary: Present: dry - Labs CBC & Chem 7: 01/10/22 03:48 01/10/22 03:48 Labs: Laboratory Results - last 24 hr 01/09/22 01/09/22 01/10/22 08:45 20:20 03:48 WBC 22.6 H RBC 4.64 Hgb 13.5 Hct 42.3 MCV 91 MCH 29 MCHC 32 RDW 17.2 H Plt Count 141 Add Manual Diff Complete Total Counted 100 Seg Neutrophils % Aerospace Engineer Officer Armament Seg Neuts % (Manual) 95.0 H Band Neutrophils % 0 Lymphocytes % (Manual) 2.0 L Reactive Lymphs % (Man) 0 Monocytes % (Manual) 3.0 Eosinophils % (Manual) 0 Basophils % (Manual) 0 Metamyelocytes % 0 Myelocytes % 0 Promyelocytes % 0 Blast Cells % 0 Nucleated RBC % Not Reportable Seg Neutrophils # Man 21.5 H Band Neutrophils # 0.0 Lymphocytes # (Manual) 0.5 L Abs React Lymphs (Man) 0.0 Monocytes # (Manual) 0.7 Eosinophils # (Manual) 0.0 Basophils # (Manual) 0.0 Metamyelocytes # 0.0 Myelocytes # 0.0 Promyelocytes # 0.0 Blast Cells # 0.0 WBC Morphology Not Reportable Hypersegmented Neuts Not Reportable Hyposegmented Neuts Not Reportable Hypogranular Neuts Not Reportable Smudge Cells Not Reportable Toxic Granulation Not Reportable Toxic Vacuolation Not Reportable Dohle Bodies Not Reportable Pelger-Huet Anomaly Not Reportable Nica Rods Not Reportable Platelet Estimate Consistent w auto Clumped Platelets Not Reportable Plt Clumps, EDTA Not Reportable Large Platelets Not Reportable Giant Platelets Not Reportable Platelet Satelliting Not Reportable Plt Morphology Comment Not Reportable RBC Morphology Not Reportable Dimorphic RBCs Not Reportable Polychromasia Not Reportable Hypochromasia Not Reportable Poikilocytosis Not Reportable Anisocytosis Not Reportable Microcytosis Not Reportable Macrocytosis Not Reportable Spherocytes Not Reportable Pappenheimer Bodies Not Reportable Sickle Cells Not Reportable Target Cells Not Reportable Tear Drop Cells Not Reportable Ovalocytes Not Reportable Helmet Cells Not Reportable [place] Bodies Not Reportable [place] Rings Not Reportable Sunny Cells Not Reportable Bite Cells Not Reportable Crenated Cell Not Reportable Elliptocytes Not Reportable Acanthocytes (Spur) Not Reportable Rouleaux Not Reportable Hemoglobin C Crystals Not Reportable Schistocytes Not Reportable Malaria parasites Not Reportable Josh Bodies Not Reportable Hem Pathologist Commnt No Sodium Potassium 5.3 H D Chloride Carbon Dioxide Anion Gap BUN Creatinine Estimated GFR BUN/Creatinine Ratio Glucose Calcium Magnesium Total Bilirubin AST ALT Alkaline Phosphatase Total Protein Albumin Albumin/Globulin Ratio Hepatitis A IgM Ab Non-reactive Hep Bs Antigen Non-reactive Hep B Core IgM Ab Non-reactive Hepatitis C Antibody Non-reactive 01/10/22 03:48 WBC RBC Hgb Hct MCV MCH MCHC RDW Plt Count Add Manual Diff Total Counted Seg Neutrophils % Seg Neuts % (Manual) Band Neutrophils % Lymphocytes % (Manual) Reactive Lymphs % (Man) Monocytes % (Manual) Eosinophils % (Manual) Basophils % (Manual) Metamyelocytes % Myelocytes % Promyelocytes % Blast Cells % Nucleated RBC % Seg Neutrophils # Man Band Neutrophils # Lymphocytes # (Manual) Abs React Lymphs (Man) Monocytes # (Manual) Eosinophils # (Manual) Basophils # (Manual) Metamyelocytes # Myelocytes # Promyelocytes # Blast Cells # WBC Morphology Hypersegmented Neuts Hyposegmented Neuts Hypogranular Neuts Smudge Cells Toxic Granulation Toxic Vacuolation Dohle Bodies Pelger-Huet Anomaly Nica Rods Platelet Estimate Clumped Platelets Plt Clumps, EDTA Large Platelets Giant Platelets Platelet Satelliting Plt Morphology Comment RBC Morphology Dimorphic RBCs Polychromasia Hypochromasia Poikilocytosis Anisocytosis Microcytosis Macrocytosis Spherocytes Pappenheimer Bodies Sickle Cells Target Cells Tear Drop Cells Ovalocytes Helmet Cells Ros[place] Bodies [place] Rings Sunny Cells Bite Cells Crenated Cell Elliptocytes Acanthocytes (Spur) Rouleaux Hemoglobin C Crystals Schistocytes Malaria parasites Josh Bodies Hem Pathologist Commnt Sodium 136 L Potassium 4.8 Chloride 102.3 Carbon Dioxide 18 L Anion Gap 21 BUN 78 H Creatinine 3.1 H Estimated GFR 25 BUN/Creatinine Ratio 25 Glucose 139 H Calcium 8.4 Magnesium 2.40 H Total Bilirubin 0.90 AST 1043 H ALT 1392 H Alkaline Phosphatase 128 Total Protein 6.2 L Albumin 3.7 L Albumin/Globulin Ratio 1.5 Hepatitis A IgM Ab Hep Bs Antigen Hep B Core IgM Ab Hepatitis C Antibody
[2022-01-10] MEDS: hydrALAZINE 25 MG TAB PO SCH ×2 (16:03→22:49)
[2022-01-11] MEDS: amLODIPine 10 MG TAB PO SCH (04:24)
[2022-01-11] MEDS: SODIUM CHLORIDE 0.9% 1000 ML 1,000 ML IV SCH (05:05)
[2022-01-11] MEDS: hydrALAZINE 25 MG TAB PO SCH (05:05)
[2022-01-11 05:57] LABS: Basophils % (Auto) 0.1 % (0.0-1.8); Eosinophils % (Auto) 0.1 % (0.0-4.3); Hematocrit 41.2 % (35.5-45.6); Hemoglobin 13.5 gm/dl (11.8-15.2); Lymphocytes # (Auto) 0.9 K/mm3 (1.2-5.4); Lymphocytes % (Auto) 5.5 % (13.4-35.0); Mean Corpuscular HGB Conc 33 % (32-34); Mean Corpuscular Volume 90 fl (84-94); Monocytes # (Auto) 0.8 K/mm3 (0.0-0.8); Monocytes % (Auto) 4.6 % (0.0-7.3); Platelet Count 125 K/mm3 (140-440); Red Blood Count 4.59 M/mm3 (3.65-5.03); Red Cell Distribution Width 17.2 % (13.2-15.2)
[2022-01-11 06:31] LABS: Calcium 7.5 mg/dL (8.4-10.2)
[2022-01-11] MEDS ORDERED: REGADENOSON 0.4 MG/5 ML INJ IV ONE (07:07)
[2022-01-11 08:10] LABS: Color,Urine Yellow (Yellow)
--- NOTE | 2022-01-11 09:31 | Electrocardiograph Report ---
[facility] Test Date: 2022-01-08 Test Time: 11:35:10 Pat Name: SERGIO HINTON Department: Room: A451 Gender: M Account Analyst: LANDY : 1960 Requested By: GIOVANNI SMALL Order Number: [id number] Reading MD: Kuldip Diego Measurements Intervals [place] Rate: 101 P: 73 HI: 179 QRS: 79 QRSD: 86 T: -85 QT: 427 QTc: 553 Interpretive Statements Sinus tachycardia Biatrial enlargement, LVH Abnormal T, consider ischemia, diffuse leads Compared to ECG 08/07/2021 11:06:14 T-wave abnormality now present, Possible ischemia now present Sinus rhythm no longer present PAC'S no longer present Early repolarization no longer present ST (T wave) deviation still present Electronically Signed On 01-11-2022 9:31:21 EDT by Kuldip Diego
[2022-01-11] MEDS ORDERED: carvediloL 6.25 MG TAB PO SCH (09:33)
[2022-01-11] MEDS ORDERED: hydrALAZINE 25 MG TAB PO SCH (10:00)
[2022-01-11] MEDS ORDERED: carvediloL 12.5 MG TAB PO SCH (10:00)
--- NOTE | 2022-01-11 11:08 | Progress Note ---
Assessment and Plan Patient is a 61-year-old male with history of hypertension, coronary artery disease, anticoagulation, hyperlipidemia, CHF and GERD comes in for evaluation of shortness of breath. Acute respiratory failure NSTEMI Leukocytosis Acute on chronic HFrEF MU on CKD- Nephrology following Hyperkalemia Elevated LFTs- GI following Crack cocaine use-UDS positive for cocaine Medical noncompliance History of hypertension Hyperlipidemia Echo 01/08/2022-EF 25 to 30%. Severe global hypokinesis of LV. Right ventricle is mildly hypokinetic. Moderate aortic regurgitation. Moderate tricuspid regurgitation. Trace pulmonic regurgitation. Echo 08/06/2021-EF 50 to 55%. Mild concentric LVH. Left ventricular end- diastolic pressure is elevated. Right ventricle is borderline dilated. Right ventricle systolic function is normal. Left atrium mildly dilated. Mild to moderate aortic regurgitation. Trace tricuspid regurgitation Lexiscan MPI stress test 08/30/2020-stress test negative for signs of ischemia Plan: Patient remains chest pain-free Patient had negative stress test this a.m. See report for full details Patient currently on carvedilol 6.25mg p.o. BID, Eliquis, aspirin, atorvastatin 40 mg p.o. nightly, Lasix 40 mg p.o. daily, Imdur 30 mg p.o. daily and hydralazine 25 mg 3 times daily Will increase carvedilol to 12.5 mg p.o. twice daily and decrease hydralazine to 25 mg p.o. twice daily Due to patient's renal function will defer volume management to nephrology Discussed the importance of medication compliance, diet compliant, and cessation of smoking and drug use. Patient verbalized understanding and acknowledgment Patient cardiac status otherwise stable for discharge Patient should follow-up with their primary panel maker in 1 to 2 after weeks discharge but patient may also follow-up with Dr. Diego, [facility] counterintelligence/humint specialist. Phone #[phone] Patient seen in conjunction with Dr. 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 (6) History of cocaine abuse Current Visit: No Status: Resolved (7) Acute on chronic HFrEF (heart failure with reduced ejection fraction) Current Visit: No Status: Acute (8) Cocaine abuse Current Visit: Yes Status: Chronic (9) Acute on chronic renal insufficiency Current Visit: Yes Status: Acute (10) Noncompliance with medication regimen Current Visit: Yes Status: Acute (11) Hypertensive urgency Current Visit: Yes Status: Acute (12) Acute respiratory failure with hypoxia Current Visit: Yes Status: Acute (13) Acute hepatitis Current Visit: Yes Status: Acute Subjective Date of service: 01/11/22 Principal diagnosis: SOB, NSTEMI, MU, Interval history: Patient for stress test this a.m. Sinus 70s to 80s on monitor Objective Vital Signs Temp Pulse Resp BP BP Pulse Ox 01/11/22 09:49 98.0 F 81 18 138/75 95 01/11/22 08:36 116/81 01/11/22 08:35 132/86 01/11/22 08:34 139/93 01/11/22 07:48 128/89 01/11/22 03:48 98.2 F 93 H 16 118/70 93 01/11/22 00:50 98.1 F 70 16 117/69 95 01/10/22 22:00 75 98 01/10/22 20:52 98.0 F 74 16 96/53 95 01/10/22 16:03 71 117/78 01/10/22 15:57 97.9 F 71 16 117/78 98 01/10/22 11:33 98.7 F 84 16 132/87 97 - Physical Examination General: No Apparent Distress HEENT: Positive: Normocephaly Neck: Positive: neck supple. Negative: JVD/HJR Cardiac: Positive: Reg Rate and Rhythm Lungs: Positive: Normal Breath Sounds Neuro: Positive: Grossly Intact Abdomen: Positive: Soft Skin: Negative: Rash Extremities: Absent: edema - Labs and Meds CBC 01/11/22 Range/Units 05:03 WBC 16.6 H (4.5-11.0) K/mm3 RBC 4.59 (3.65-5.03) M/mm3 Hgb 13.5 (11.8-15.2) gm/dl Hct 41.2 (35.5-45.6) % Plt Count 125 L (140-440) K/mm3 Lymph # (Auto) 0.9 L (1.2-5.4) K/mm3 [place] # (Auto) 0.8 (0.0-0.8) K/mm3 Eos # (Auto) 0.0 (0.0-0.4) K/mm3 Baso # (Auto) 0.0 (0.0-0.1) K/mm3 Comprehensive Metabolic Panel 01/11/22 Range/Units 05:03 Sodium 141 (137-145) mmol/L Potassium 4.5 (3.6-5.0) mmol/L Chloride 105.8 (98-107) mmol/L Carbon Dioxide 18 L (22-30) mmol/L BUN 57 H (9-20) mg/dL Creatinine 2.3 H (0.8-1.3) mg/dL Glucose 101 H (75-100) mg/dL Calcium 7.5 L (8.4-10.2) mg/dL - Imaging and Cardiology Echo: report reviewed - Telemetry EKG Rhythm: Sinus Rhythm - EKG Sinus rhythms and dysrhythmias: sinus rhythm Chamber hypertrophy or enlargement: left ventricular hypertro Repolarization changes or abnormalities: repolarization abn secondary to ventricular hypertrophy (Tall T wave) - Allied health notes Allied health notes reviewed: nursing
[2022-01-11] MEDS: ACETAMINOPHEN 325 MG TAB PO PRN (11:27)
[2022-01-11] MEDS: FUROSEMIDE 40 MG TAB PO SCH (11:27)
[2022-01-11] MEDS: ASPIRIN 81 MG TAB CHEW PO SCH (11:28)
[2022-01-11] MEDS: PANTOPRAZOLE 20 MG TAB PO SCH (11:28)
[2022-01-11] MEDS: APIXABAN 5 MG TAB PO SCH (11:28)
[2022-01-11 12:29] VITALS: BP 134/79
--- NOTE | 2022-01-11 13:13 | Discharge Summary ---
Providers - Providers Date of Admission: 01/08/22 16:52 Date of discharge: 01/11/22 Attending physician: SHREYA BRICEÑO 01/08/22 12:25 Consult to Cardiology [CONS] Stat Consulting Provider: ADELAIDE FOWLER Reason For Exam: elevated troponin, hyperacute t waves in anterior 01/09/22 07:35 Consult to Physician [CONS] Routine Comment: Consulting Provider: ANNETTA KHAN Physician Instructions: Reason For Exam: Acute on chronic kidney disease/hyperkalemia 01/09/22 07:41 Consult to Physician [CONS] Routine Comment: Consulting Provider: ZHANNA BINGHAM Physician Instructions: Reason For Exam: Hepatitis,statins stopped 01/09/22 13:43 Physical Therapy Evaluation and Treat [CONS] Routine Comment: Pt eval and treat Reason For Exam: debility Primary care physician: GINA LOMELI Hospitalization Condition: Stable Pertinent studies: Patient echocardiogram ejection fraction 25% severe global hypokinesis moderate atrial regurgitation and tricuspid regurgitation. Previous echocardiogram ejection fraction 55%. Stress test negative today. Hospital course: 61-year-old male with history of hypertension, coronary artery disease, anticoagulation, hyperlipidemia, CHF and GERD comes in for evaluation of shortness of breath. Patient denies chest pain. Patient apparently was smoking crack cocaine and still drinking alcohol after which he developed shortness of breath and difficulty breathing. Patient was admitted ruled out for myocardial infarction. Treated for congestive heart failure. Upon day is discharge patient had negative stress test. Patient stable for discharge. Disposition: 30 STILL A PATIENT Final Discharge Diagnosis (Prints w/discharge instructions): Acute respiratory failure. Malignant hypertension. Congestive heart failure. Cocaine abuse. Tobacco abuse Core Measure Documentation - Palliative Care Palliative Care/ Comfort Measures: Not Applicable - Core Measures Any of the following diagnoses?: heart failure - Heart Failure Discharge Requirements RENEA/ARB for LVSD if EF <40%: No Reason for no RENEA/ARB: Renal impairment Beta chepe at discharge: Yes Exam - Constitutional Vitals: Temp Pulse Resp BP Pulse Ox 98.3 F 76 20 134/79 94 01/11/22 10:56 01/11/22 10:56 01/11/22 10:56 01/11/22 10:56 01/11/22 10:56 General appearance: Present: no acute distress, well-nourished - EENT Eyes: Present: PERRL ENT: hearing intact, clear oral mucosa - Neck Neck: Present: supple, normal ROM - Respiratory Respiratory effort: normal Respiratory: bilateral: CTA - Cardiovascular Heart Sounds: Present: S1 & S2. Absent: rub, click - Extremities Extremities: pulses symmetrical, No edema Peripheral Pulses: within normal limits - Abdominal General gastrointestinal: Present: soft, non-tender, non-distended, normal bowel sounds Male genitourinary: Present: normal - Integumentary Integumentary: Present: clear, warm, dry - Musculoskeletal Musculoskeletal: gait normal, strength equal bilaterally - Psychiatric Psychiatric: appropriate mood/affect, intact judgment & insight - Neurologic Neurologic: CNII-XII intact, moves all extremities Plan Activity: no restrictions Weight Bearing Status: Full Weight Bearing Diet: low cholesterol, low carbohydrate Special Instructions: restrict fluid intake to (2 L), record daily BP diary, smoking cessation, other (Drug cessation) Care Plan Goals: Increase exercise tolerance Smoking cessation Follow-up with primary care physician Improve diet with less concentrated fats and low carbohydrates. Medication compliance Avoid cocaine use Follow up with: GINA LOMELI MD [Primary Care Provider] - 3-5 Days ADELAIDE FOWLER MD [Staff Physician] - 7 Days Prescriptions: hydrALAZINE [Apresoline TAB] 25 mg PO BID #60 tablet Aspirin [Aspirin BABY CHEW TAB] 81 mg PO QDAY 30 Days #30 tab.chew carvediloL [Coreg] 12.5 mg PO BID #60 tablet Apixaban [Eliquis] 5 mg PO Q12HR 30 Days #60 tablet ISOSORBIDE MONOnitrate [Imdur ER] 30 mg PO QDAY #30 tablet Furosemide [Lasix TAB] 40 mg PO QDAY #30 tablet AtorvaSTATin [Lipitor] 40 mg PO QHS 30 Days #30 tablet Pantoprazole [Protonix TAB] 20 mg PO QDAY #30 tablet.
--- NOTE | 2022-01-12 09:23 | Nuclear Medicine Report ---
APPROVED REPORT Exam: Nuclear Stress Test Indication: Chest pain Patient Location: [address] [place] [address] Room #: 451 Ht: 5 ft 9 in Wt: 128 lbs BSA: 1.71 m2 HR: 78 bpmBP: 128/89 mmHgBMI: 18.90 Rhythm: SINUS RHYTHM, RITA,LAE,LVH Stress Test Details Stress Test: Pharmacologic stress testing performed using 0.4 mg of regadenoson per 5 mL given IV over 10 seconds. Reason for pharmacologic stress test: physical limitation. HR Resting HR: 78 bpm Max HR Achieved: 93 bpm Max Heart Rate (APMHR): 159.752200 bpm Target HR (85% APMHR): 135.617198 bpm % of APMHR: 58.49 Recovery HR: 88 bpm BP Resting BP: 128/89 mmHg Max BP: 139/93 mmHg Recovery BP: 130/90 mmHg ECG Resting ECG: Sinus Rhythm Stress ECG: Sinus Rhythm Recovery ECG: Sinus Rhythm Clinical Reason for Termination: Completed protocol Stress Symptoms: None NM EXAM: Myocardial Perfusion REST/STRESS Imaging Protocol: Rest Tc-99m/Stress Tc-99m 1 day Resting Data Rest SPECT myocardial perfusion imaging was performed in supine position 45 minutes following the intravenous injection of 10 mCi of Tc-99m Myoview. Time of rest injection: 0700 Date: 01/11/2022 Pharmacologic Stress Pharmacologic stress test was performed by injecting Regadenoson 0.4 mg IV push followed by the intravenous injection of 28 mCi of Tc-99m Myoview. Time of stress injection: 08:32:44 Date: 01/11/2022 Gated Stress SPECT was performed 30 minutes after stress injection. The images were gated to evaluate regional wall motion and calculate left ventricular ejection fraction. Study Data TID = 1.03. Perfusion Nuclear Conclusion ECG Findings: negative for ischemia Clinical Findings: negative for ischemia Nuclear Findings: negative for ischemia Exercise Capacity: not assessed Left Ventricular Function: abnormal Risk Study: low negative lexiscan ekg, normal myocardial perfusion mild lv dilatation, no signficant ischemia noted, ef 33% suggestive of non ischemic cardiomyopathy
== END 2022-01-11 18:35 | disposition home health service (06) | DRG 280 ==
LOC: ED 03:15 → 4A 16:52
PROVIDERS: ADMIT Internal Medicine; ATTEND Internal Medicine
DX: I13.0 Hypertensive heart and chronic kidney disease with heart failure and stage 1 through stage 4 chronic kidney disease, or unspecified chronic kidney disease (principal); I50.23 Acute on chronic systolic (congestive) heart failure; I21.4 Non-ST elevation (NSTEMI) myocardial infarction; J96.01 Acute respiratory failure with hypoxia; K72.00 Acute and subacute hepatic failure without coma; N17.0 Acute kidney failure with tubular necrosis; F17.200 Nicotine dependence, unspecified, uncomplicated; F14.10 Cocaine abuse, uncomplicated; N18.9 Chronic kidney disease, unspecified; I16.0 Hypertensive urgency; B17.9 Acute viral hepatitis, unspecified; E78.5 Hyperlipidemia, unspecified; E87.5 Hyperkalemia; K21.9 Gastro-esophageal reflux disease without esophagitis; Z91.14 Patient's other noncompliance with medication regimen
CPT/HCPCS: 36415; 71046; 76700; 78452; 80048; 80053; 80061; 80074; 80307; 80320; 81001; 83735; 83880; 84132; 84484; 85007; 85025; 87040; 93005; 93017; 93306; 94644; 96374; 96375; 99285; G0378; A9502; C8929; G0480; J0360; J0610; J1940; J2785; J2930; J7030